=== PATIENT | male | born 1945 | race Caucasian/White ===

== ENCOUNTER 2018-10-30 18:32 | Inpatient (IN) ==
[2018-10-30] MEDS ORDERED: Nitroglycerin Drip Premix 50 MG/250 ML BOTTLE IV.CONT PRN (18:36)
[2018-10-30 18:57] LABS: Baso # (Auto) 0.1 th/mm3 (0.0-0.2); Baso % (Auto) 1.3 % (0.0-2.0); Eos # (Auto) 0.3 th/mm3 (0.0-0.4); Hematocrit 46.2 % (39.0-51.0); Hemoglobin 15.8 gm/dL (13.0-17.0); Lymph # (Auto) 3.7 th/mm3 (1.0-4.8); Lymph % (Auto) 43.9 % (9.0-44.0); Mean Corpuscular HGB Conc 34.2 % (32.0-36.0); Mean Corpuscular Hemoglobin 32.2 pg (27.0-34.0); Mean Corpuscular Volume 94.1 fL (80.0-100.0); Mean Platelet Volume 7.4 fL (7.0-11.0); Mono # (Auto) 0.8 th/mm3 (0.0-0.9); Mono % (Auto) 9.9 % (0.0-8.0); Neut # (Auto) 3.5 th/mm3 (1.8-7.7); Neut % (Auto) 40.9 % (16.0-70.0); Platelet Count 268 th/mm3 (150-450); Red Blood Count 4.91 mil/mm3 (4.50-5.90); Red Cell Distribution Width 13.2 % (11.6-17.2); White Blood Count 8.5 th/mm3 (4.0-11.0)
[2018-10-30] MEDS ORDERED: Morphine Inj 4 MG/ML Vial IV.PUSH ONE (18:59)
--- NOTE | 2018-10-30 19:03 | XR ---
EXAM DATE: 10/30/2018 6:58 PM EST AGE/SEX: 73 years / Male INDICATIONS: Congestion. Respiratory. CLINICAL DATA: This is the patient's initial encounter. Patient reports that signs and symptoms have been present for 1 day and indicates a pain score of Nonresponsive. MEDICAL/SURGICAL HISTORY: Non-responsive. Non-responsive. COMPARISON: No prior exams available for comparison. FINDINGS: A single AP portable erect view of the chest was obtained and demonstrates bilateral alveolar opaciti es greatest in the perihilar regions and lung bases. There is no focal consolidation or visualized ef fusion. The heart size is at the upper limits of normal. Atherosclerotic changes are present in the a angelina. The bony thorax is intact with multiple overlying electrocardiogram leads. CONCLUSION: Bilateral alveolar opacities most characteristic of pulmonary edema. These may be cardiogenic or nonc ardiogenic in origin. Electronically signed by: Stephen Lee MD 10/30/2018 7:01 PM EST
[2018-10-30 19:24] LABS: ABG Base Excess -2.9 mmol/L (-2-2); ABG PCO2 41 mmHg (38-42); ABG PO2 512 mmHg (61-120)
[2018-10-30 19:29] LABS: Albumin 4.1 g/dL (3.4-5.0); Anion Gap 9 meq/L (5-15); Aspartate Aminotransferase 30 U/L (15-37); Blood Urea Nitrogen 14 mg/dL (7-18); Calcium 8.3 mg/dL (8.5-10.1); Carbon Dioxide 23.6 meq/L (21.0-32.0); Chloride 93 meq/L (98-107); Glomerular Filtration Rate 78 mL/min (>89); Glucose,Random 182 mg/dL (74-106); Potassium 4.1 meq/L (3.5-5.1); Sodium 126 meq/L (136-145)
--- NOTE | 2018-10-30 19:32 | ED ---
HPI General Chief Complaint: Shortness of Breath/Dyspnea Stated Complaint: respiratory/evac Time Seen by Provider: 10/30/18 18:58 Source: EMS Mode of arrival: EMS Limitations: physical limitation (Severe shortness of breath) History of Present Illness MD Complaint: Reports shortness of breath Onset (ago): minute(s) Context: Reports other (He was at a [employer] meeting when he suddenly became dyspneic with white, frothy sputum.) Severity: severe Consistency/Duration: constant Relieving factors: other (CPAP) Known history of: Denies COPD, asthma, congestive heart failure and diabetes Associated symptoms: Reports chest pain Treatment prior to arrival: Reports oxygen, NIPPV, nitroglycerin and other (And Solu-Medrol) Related Data Home oxygen amount: none Home Medications Medication Instructions Recorded Confirmed Unable to Obtain Home Meds 10/30/18 10/30/18 Allergies Allergy/AdvReac Type Severity Reaction Status Date / Time No Known Allergies Allergy Verified 10/30/18 18:40 Review of Systems ROS Unobtainable ROS Unobtainable: other (Unable to obtain due to severe shortness of breath) [facility] Medical History Medical History History of epilepsy (Acute) Social History Social History Recent Travel in [facility] within the Last 8 Weeks: No Recent Out of Country Travel within the Last 8 Weeks: No Exam Const General: cooperative, healthy appearing, well developed, well groomed and acute distress Orientation: alert, awake and oriented x3 HENMT Head: normal to inspection, normocephalic and atraumatic Eyes Alignment and Position: alignment normal Conjunctivae: conjunctivae normal Sclera: sclerae normal EOM: EOM intact bilaterally Neck Neck: normal visual inspection and full ROM Chest Chest: normal inspection of the chest Resp Effort & Inspection: other (BiPAP in place. White, frothy sputum.) Auscultation: rales Cardio Rate: tachycardic Rhythm: regular rhythm GI Inspection: normal to inspection Palpation: soft Back/Spine/Pelvis Cervical Spine: cervical ROM normal Thoracic/Lumbar Spine: thoraco-lumbar ROM normal Skin General: no rashes or lesions noted and turgor normal Neuro General: alert, awake, oriented x3, moves all extremities and CN's II-XI intact bilaterally Extrem General: normal to inspection, full ROM and edema (2+) Laterality: bilaterally Psych Appearance: grossly normal Mental Status: mental status grossly normal Speech and Movement: speech and movement normal Mood: congruent mood Affect: normal affect Attitude: cooperative Thought Process: normal Thought Content: normal Judgment: judgment good Course Reevaluation(s) Reevaluation #1: He is maintaining sats of 100% on BiPAP. Heart rate and blood pressure coming down. Time: 19:31 Reevaluation #2: The patient's is now at the bedside. She confirms the history of the acute onset of dyspnea and white frothy sputum just shortly prior to presentation. She further reports that he is regularly followed by Dr. Granado. No cardiac problem has ever been identified. He reportedly had an echo in March which was negative. The patient's states that he looks markedly improved now as compared to at the onset of his acute illness. Time: 19:42 Consultations Consultation #1: Dr. Fitzpatrick, model builder display. Time: 19:31 Initial Documented Vital Signs Pulse Rate 117 H 18 18:35 Respiratory Rate 22 18 18:35 Pulse Oximetry 100 10/30/18 18:35 Last Documented Vital Signs Pulse Rate 104 H 10/30/18 20:04 Respiratory Rate 20 10/30/18 20:04 Blood Pressure 134/75 10/30/18 20:04 Pulse Oximetry 100 10/30/18 20:04 Critical Care Time Critical Care Time: Yes Total Critical Care Time: 45 Attestation: Time to perform other separately billable procedures was not included in the critical care time. My time did not include minutes spent treating any other patients simultaneously or on activities that did not directly contribute to the patient's treatment. The services I provided to this patient were to treat and/or prevent clinically significant deterioration due to respiratory distress, acute pulmonary edema I provided critical care services requiring my management, as noted below: Chart data review, documentation time, medication orders and management, vital sign assessments/reviewing monitor data, ordering and reviewing lab tests, ordering and interpreting/reviewing x-rays and diagnostic studies, care of the patient and discussion of the patient with the admitting physicians Medical Decision Making MDM Narrative Medical decision making narrative: This patient presents to us by EVAC with acute respiratory distress. History is difficult because the patient is on BiPAP and is very short of breath. He does state that he was fine until just prior to presentation when he had the acute onset of his symptoms. The patient was treated by EVAC with 1 spray of glycerin and BiPAP. He was also given Solu-Medrol On arrival here, BiPAP was continued. He was given Lasix 40 mg IV and morphine 4 mg IV. Nitropaste was placed. He still has significant respiratory distress but is markedly improved. D-dimer is elevated so CT for PE has been ordered. Medical Screen Exam Complete: Yes Emergency Medical Condition: Yes Differential Diagnosis Differential Diagnosis: Differential diagnosis of dyspnea includes but is not limited to congestive heart failure, pneumonia, wheezing, pneumothorax, pulmonary embolism Medical Records Medical records reviewed: Yes I reviewed the patient's medical records. His only medical history is a seizure disorder for which he takes Keppra Lab Data Lab results reviewed: Yes I reviewed the patient's lab results. Result diagrams: 10/30/18 18:45 10/30/18 18:45 Lab Results 10/30/18 10/30/18 10/30/18 Range/Units 18:45 18:45 18:45 WBC 8.5 (4.0-11.0) th/mm3 RBC 4.91 (4.50-5.90) mil/mm3 Hgb 15.8 (13.0-17.0) gm/dL Hct 46.2 (39.0-51.0) % MCV 94.1 (80.0-100.0) fL MCH 32.2 (27.0-34.0) pg MCHC 34.2 (32.0-36.0) % RDW 13.2 (11.6-17.2) % Plt Count 268 (150-450) th/mm3 MPV 7.4 (7.0-11.0) fL Neut % (Auto) 40.9 (16.0-70.0) % Lymph % (Auto) 43.9 (9.0-44.0) % Otero % (Auto) 9.9 H (0.0-8.0) % Eos % (Auto) 4.0 (0.0-4.0) % Baso % (Auto) 1.3 (0.0-2.0) % Neut # (Auto) 3.5 (1.8-7.7) th/mm3 Lymph # (Auto) 3.7 (1.0-4.8) th/mm3 Otero # (Auto) 0.8 (0.0-0.9) th/mm3 Eos # (Auto) 0.3 (0.0-0.4) th/mm3 Baso # (Auto) 0.1 (0.0-0.2) th/mm3 WBC Differential . Differential Comment Auto diff final D-Dimer Quant (PE/DVT) 1.78 H (0.00-0.50) mg/L FEU Puncture Site Patient Temperature O2 Saturation (90-100) % ABG pH (7.380-7.420) ABG pCO2 (38-42) mmHg ABG pO2 (61-120) mmHg ABG HCO3 (22-26) mmol/L ABG O2 Content (12.0-20.0) Vol % ABG Base Excess (-2-2) mmol/L ABG Methemoglobin (0-2) % Mervin Test Hemoglobin (12.0-16.0) G/DL Carboxyhemoglobin (0-4) % O2 Delivery Device Vent Setting Inspired O2 % Critical Value Sodium 126 L (136-145) meq/L Potassium 4.1 (3.5-5.1) meq/L Chloride 93 L (98-107) meq/L Carbon Dioxide 23.6 (21.0-32.0) meq/L Anion Gap 9 (5-15) meq/L BUN 14 (7-18) mg/dL Creatinine 0.95 (0.60-1.30) mg/dL Estimated GFR 78 L (>89) mL/min Random Glucose 182 H (74-106) mg/dL Lactic Acid (0.4-2.0) mmol/L Calcium 8.3 L (8.5-10.1) mg/dL Total Bilirubin 0.6 (0.2-1.0) mg/dL AST 30 (15-37) U/L ALT 28 (12-78) U/L Alkaline Phosphatase 96 (45-117) U/L Troponin I Less than 0.02 L (0.02-0.05) ng/mL B-Natriuretic Peptide (0-100) pg/mL Total Protein 7.3 (6.4-8.2) g/dL Albumin 4.1 (3.4-5.0) g/dL 10/30/18 10/30/18 10/30/18 Range/Units 18:45 19:18 19:25 WBC (4.0-11.0) th/mm3 RBC (4.50-5.90) mil/mm3 Hgb (13.0-17.0) gm/dL Hct (39.0-51.0) % MCV (80.0-100.0) fL MCH (27.0-34.0) pg MCHC (32.0-36.0) % RDW (11.6-17.2) % Plt Count (150-450) th/mm3 MPV (7.0-11.0) fL Neut % (Auto) (16.0-70.0) % Lymph % (Auto) (9.0-44.0) % Otero % (Auto) (0.0-8.0) % Eos % (Auto) (0.0-4.0) % Baso % (Auto) (0.0-2.0) % Neut # (Auto) (1.8-7.7) th/mm3 Lymph # (Auto) (1.0-4.8) th/mm3 Otero # (Auto) (0.0-0.9) th/mm3 Eos # (Auto) (0.0-0.4) th/mm3 Baso # (Auto) (0.0-0.2) th/mm3 WBC Differential Differential Comment D-Dimer Quant (PE/DVT) (0.00-0.50) mg/L FEU Puncture Site Right radial Patient Temperature 98.6 O2 Saturation 98 (90-100) % ABG pH 7.35 L (7.380-7.420) ABG pCO2 41 (38-42) mmHg ABG pO2 512 H (61-120) mmHg ABG HCO3 22 (22-26) mmol/L ABG O2 Content 21.9 H (12.0-20.0) Vol % ABG Base Excess -2.9 L (-2-2) mmol/L ABG Methemoglobin 1.2 (0-2) % Mervin Test Present Hemoglobin 15.0 (12.0-16.0) G/DL Carboxyhemoglobin 0.4 (0-4) % O2 Delivery Device Bipap Vent Setting Ipap 15/epap 8 ps7 Inspired O2 100 % Critical Value No Sodium (136-145) meq/L Potassium (3.5-5.1) meq/L Chloride (98-107) meq/L Carbon Dioxide (21.0-32.0) meq/L Anion Gap (5-15) meq/L BUN (7-18) mg/dL Creatinine (0.60-1.30) mg/dL Estimated GFR (>89) mL/min Random Glucose (74-106) mg/dL Lactic Acid 1.4 (0.4-2.0) mmol/L Calcium (8.5-10.1) mg/dL Total Bilirubin (0.2-1.0) mg/dL AST (15-37) U/L ALT (12-78) U/L Alkaline Phosphatase (45-117) U/L Troponin I (0.02-0.05) ng/mL B-Natriuretic Peptide 537 H (0-100) pg/mL Total Protein (6.4-8.2) g/dL Albumin (3.4-5.0) g/dL Imaging Data Attestation: I personally reviewed and interpreted this imaging study as follows : Radiologist's impression: Chest X-Ray 10/30/18 18:37 CONCLUSION: Bilateral alveolar opacities most characteristic of pulmonary edema. These may be cardiogenic or noncardiogenic in origin. ECG Data EKG Prior to Arrival: Yes Attestation: I personally reviewed and interpreted this ECG as follows: Discharge Plan Discharge Disposition Patient Disposition: ED Admit(ED Internal Use Only) Discharge Order Discharge Orders: ED Use Only Admit Order (Routine); Ordered 10/30/18 Ordered By: Stefani Mondragon Discharge Details Diagnosis: Acute respiratory distress, Pulmonary edema, Elevated d-dimer Physicians Team ED Provider: Stefani Mondragon Primary Care Provider: UNKNOWN, Attending Provider: Eldon Fitzpatrick Discharge Interventions Interventions: Vital Signs Last Done: 10/30/18 19:15 Status ED Status: Admitted Patient
[2018-10-30 19:34] LABS: Alanine Aminotransferase 28 U/L (12-78); Alkaline Phosphatase 96 U/L (45-117); Total Protein 7.3 g/dL (6.4-8.2)
[2018-10-30] MEDS ORDERED: Acetaminophen 325 MG Tablet PO PRN (20:16)
[2018-10-30] MEDS ORDERED: Bisacodyl 10 MG Supp RECTAL PRN (20:16)
[2018-10-30] MEDS ORDERED: Morphine Sulfate Inj 2 MG/ML Vial IV.PUSH PRN (20:16)
[2018-10-30] MEDS ORDERED: Potassium Phosphate Inj 30 MMOL in Sodium Chlor 0.9% Inj 250 ML IV.SIG PRN (20:22)
[2018-10-30] MEDS ORDERED: Magnesium Sulfate Inj 4 GM in Sodium Chlor 0.9% Inj 92 ML IV.SIG PRN (20:22)
[2018-10-30] MEDS ORDERED: Potassium Chlor 20 mEq Premix 20 MEQ/100 ML PIGGYBACK IV.SIG PRN (20:22)
[2018-10-30] MEDS ORDERED: Potassium Phosphate 500 MG Soluble Tablet PO PRN ×2 (20:22)
[2018-10-30] MEDS ORDERED: Sodium Phosphate Inj 30 MMOL in Sodium Chlor 0.9% Inj 250 ML IV.SIG PRN (20:22)
[2018-10-30] MEDS ORDERED: Potassium Chlor 40 mEq Premix 40 MEQ/100 ML PIGGYBACK IV.SIG PRN ×2 (20:22)
[2018-10-30] MEDS ORDERED: Magnesium Oxide 400 MG Tablet PO PRN (20:22)
[2018-10-30] MEDS ORDERED: Magnesium Sulfate Inj 2 GM in Sodium Chlor 0.9% Inj 96 ML IV.SIG PRN (20:22)
[2018-10-30] MEDS ORDERED: Potassium Chloride 25 MEQ Effervescent Tablet PO PRN (20:22)
--- NOTE | 2018-10-30 20:22 | P.HPCC ---
History of Present Illness Service: Critical care medicine Primary Care Physician: UNKNOWN Chief Complaint: Shortness of breath History of Present Illness: This is a 73-year-old male. Date of admission 10/30/2008. Past medical includes seizure disorder, elevated BMI and atherosclerotic vascular disease including carotid artery disease. Patient is on carbamazepine 600 mg twice daily at home only. She does follow with Dr. Granado for cardiology. This evening, patient was at a [facility] meeting when he suddenly became dyspneic with white, frothy sputum. He was transferred to [facility] for further evaluation. Chest x-ray revealed bilateral pulmonary cyst likely underlying pulmonary edema. Patient received 40 mg IV furosemide was started on BiPAP 15/8 40%. Patient also received 2 mg of morphine sulfate and Nitropaste. ABG was adequate. Patient is currently able to use speak complete sentences on BiPAP and is feeling less congested. Patient is clearing of some chest discomfort worse with deep inspiration. Initial troponin was 0.02. EKG revealed nonspecific ST-T changes throughout with sinus tachycardia. BNP is elevated at 572. - Diagnosis (1) BMI 38.0-38.9,adult (2) Acute hyponatremia (3) Acute hyperglycemia (4) Seizure disorder (5) Acute respiratory failure with hypoxia and hypercapnia (6) Pulmonary edema (7) Elevated d-dimer Inpatient Certification: I certify that the inpatient services were ordered in accordance with Medicare regulations governing the order. This includes certification that hospital inpatient services are reasonable and necessary and in the case of services not specified as inpatient-only under 42 CFR 419.22(n), that they are appropriately provided as inpatient services in accordance to with the 2-midnight benchmark under 43 CFR 412.3(e) Estimated Total Length of Stay (Days): 3 Plans for Post Hospital Care: Home Review of Systems Constitutional: Denies anorexia, Denies body ache(s), Denies chills, Denies daytime sleepiness, Denies excessive sweating Eyes: Denies blind spots, Denies blurry vision Ears, Nose, Mouth, and Throat: Denies abnormal hearing Cardiovascular: Reports chest pain, Reports shortness of breath, Reports shortness of breath with activity, Reports shortness of breath when lying down, Denies chest pain at rest, Denies chest pain with activity, Denies shortness of breath causing sudden awakening Respiratory: Reports pain on inspiration, Reports shortness of breath, Denies change in phlegm color, Denies chest congestion, Denies cough, Denies shortness of breath with activity Gastrointestinal: Denies abdominal pain, Denies bloating Genitourinary: Denies difficulty urinating Musculoskeletal: Denies abnormal walking, Denies back pain Skin/Breast: Denies acne, Denies bleeding lesions Neurologic: Denies abnormal hearing, Denies abnormal movements, Denies abnormal walking Psychiatric: Denies abnormal sleep pattern, Denies anxiety, Denies confusion, Denies depression Endocrine: Denies cold intolerance, Denies excessive sweating Hematologic/Lymphatic: Denies easy bleeding, Denies easy bruising Allergic/Immunologic: Denies GI upset with certain foods PMFSH - History History Provided By: Director Of Public Health / EMT - Medical History Medical History: Medical History (Last Updated 10/30/18 @ 21:02 by Eldon Fitzpatrick MD) Atherosclerotic vascular disease History of epilepsy - Surgical History Surgical History: Surgical History (Last Updated 10/30/18 @ 21:03 by Eldon Fitzpatrick MD) No pertinent past surgical history - Family History Family History: Family History (Last Updated 10/30/18 @ 21:03 by Eldon Fitzpatrick MD) Other Family history non-contributory - Social History I have reviewed the patient's Social History: Yes - Tobacco History Second Hand Smoke Exposure: No Tobacco Use In Past 30 Days: No Smoking Status: Never smoker - Alcohol History How Often Do You Have a Drink Containing Alcohol: Never - Substance Use History Substance History: No History of Abuse - Travel History Recent Travel in the [place] Within the Last 8 Weeks: No Recent Travel Out of the Country Within the Last 8 Weeks: No Medications and Allergies Active Medications: Active Medications Acetaminophen (Tylenol) 650 mg PO Q6H PRN PRN Reason: PAIN 1-10 AND/OR FEVER >101F Hydrocodone Bitart/Acetaminophen ([place] 5/325) 1 tab PO Q4H PRN PRN Reason: PAIN SCALE 1 TO 5 Al Hydroxide/Mg Hydroxide (Milk Of Magnesia Liq) 30 ml PO Q12H PRN PRN Reason: Mild Constipation Albuterol (Albuterol Neb (Lakshmi)) 2.5 mg NEB Q2HR NEB PRN PRN Reason: SHORTNESS OF BREATH/WHEEZING Albuterol (Duoneb Neb (Prn)) 1 ampul NEB Q4HR NEB LAKSHMI Bisacodyl (Dulcolax Supp) 10 mg RECTAL DAILY PRN PRN Reason: SEVERE CONSITIPATION Chlorhexidine Gluconate (Chlorhexidine 2% Cloth) 3 pack TOPICAL DAILY@0400 PRN PRN Reason: Extra cloth needed Stop: 11/05/18 03:59 Chlorhexidine Gluconate (Chlorhexidine 2% Cloth) 3 pack TOPICAL DAILY@0400 LAKSHMI Stop: 11/05/18 03:59 Sodium Chloride (Ns Inj) 1,000 mls @ 84 mls/hr IV.CONT .[id number] [facility] Lactulose (Lactulose Liq) 30 ml PO DAILY PRN PRN Reason: SEVERE CONSITIPATION Morphine Sulfate (Morphine Inj) 2 mg IV.PUSH Q2H PRN PRN Reason: PAIN SCALE 6 TO 10 Ondansetron HCl (Zofran Inj) 4 mg IV.PUSH Q6H PRN PRN Reason: NAUSEA OR VOMITING Pantoprazole Sodium (Protonix Inj) 40 mg IV.PUSH DAILY [facility] Senna/Docusate Sodium (Sinai-Colace) 1 tab PO BID [facility] Sennosides (Senokot) 17.2 mg PO Q12H PRN PRN Reason: Moderate Constipation Allergies Allergy/AdvReac Type Severity Reaction Status Date / Time No Known Allergies Allergy Verified 10/30/18 18:40 Home Medications Medication Instructions Recorded Confirmed Type Unable to Obtain Home Meds 10/30/18 10/30/18 History Results - Labs CBC & Chem 7: 10/30/18 18:45 10/30/18 18:45 Labs: Short CBC 10/30/18 Range/Units 18:45 WBC 8.5 (4.0-11.0) th/mm3 Hgb 15.8 (13.0-17.0) gm/dL Hct 46.2 (39.0-51.0) % Plt Count 268 (150-450) th/mm3 BMP 10/30/18 18:45 Sodium 126 L Potassium 4.1 Chloride 93 L Carbon Dioxide 23.6 BUN 14 Creatinine 0.95 Calcium 8.3 L Cardiac Enzymes 10/30/18 Range/Units 18:45 Troponin I Less than 0.02 L (0.02-0.05) ng/mL Liver Function 10/30/18 Range/Units 18:45 Total Bilirubin 0.6 (0.2-1.0) mg/dL AST 30 (15-37) U/L ALT 28 (12-78) U/L Alkaline Phosphatase 96 (45-117) U/L Albumin 4.1 (3.4-5.0) g/dL - Imaging Impressions Chest X-Ray 10/30/18 18:37 CONCLUSION: Bilateral alveolar opacities most characteristic of pulmonary edema. These may be cardiogenic or noncardiogenic in origin. Exam Vital signs: Vital Signs 10/30/18 18:35 10/30/18 18:40 10/30/18 19:15 Pulse Rate 117 H 114 H Respiratory Rate 22 Blood Pressure 157/97 H 158/97 H Pulse Oximetry 100 100 100 10/30/18 20:04 Pulse Rate 104 H Respiratory Rate 20 Blood Pressure 134/75 Pulse Oximetry 100 Intake & Output 10/30/18 10/30/18 10/31/18 06:59 18:59 06:59 Weight 140.614 kg - Constitutional no acute distress - Routine HEENT Exam Head: Present: normocephalic, atraumatic Eye: Present: EOMI, PERRL, normal accommodation ENT: Present: mucous membranes moist - Routine Neck Exam Present: full ROM, carotid bruit (1 out of 4 bilateral). Absent: supple, JVD - Routine Chest/Breast/Axilla Exam Chest wall: Present: tenderness. Absent: mass Breast: Absent: tenderness Axillae: Absent: lymphadenopathy - Routine Respiratory Exam Present: rhonchi, distant breath sounds. Absent: accessory muscle use, diminished air movement - Routine Cardiovascular Exam Present: S1, S2, tachycardia. Absent: murmur - Routine Abdominal Exam Present: soft, normoactive bowel sounds - Routine Extremities Exam Present: edema (1+ bilateral lower extremity edema). Absent: cyanosis, clubbing - Routine Skin Exam Present: intact. Absent: cyanosis - Routine Neurological Exam Present: alert, oriented X3, CN II-XII intact. Absent: sensory deficit, motor deficit Septic Shock Reassessment Septic shock perfusion: reassessment completed Caprini VTE Risk Assessment Caprini VTE Risk Assessment: Moderate/High Risk (score >= 2) Caprini Risk Assessment Model: Point Value = 1 Point Value = 2 Point Value = 3 Point Value = 5 Age 41-60 Minor surgery BMI > 25 kg/m2 Swollen legs Varicose veins or History of unexplained or recurrent spontaneous Oral contraceptives or hormone replacement Sepsis (< 1 month) Serious lung disease, including pneumonia (< 1 month) Abnormal pulmonary function Acute myocardial infarction Congestive heart failure (< 1 month) History of inflammatory bowel disease Medical patient at bed rest Age 61-74 Arthroscopic surgery Major open surgery (> 45 min) Laparoscopic surgery (> 45 min) Malignancy Confined to bed (> 72 hours) Immobilizing plaster cast Central venous access Age >= 75 History of VTE Family history of VTE Factor V Leiden Prothrombin [id number] Lupus anticoagulant Anticardiolipin antibodies Elevated serum homocysteine Heparin-induced thrombocytopenia Other congenital or acquired thrombophilia Stroke (< 1 month) Elective arthroplasty Hip, pelvis, or leg fracture Acute spinal cord injury (< 1 month) Prophylaxis Regimen: Total Risk Factor Score Risk Level Prophylaxis Regimen 0-1 Low Early ambulation 2 Moderate Order ONE of the following: *Sequential Compression Device (SCD) *Heparin 5000 units SQ BID 3-4 Higher Order ONE of the following medications: *Heparin 5000 units SQ TID *Enoxaparin/Lovenox 40 mg SQ daily (WT < 150 kg, CrCl > 30 mL/min) *Enoxaparin/Lovenox 30 mg SQ daily (WT < 150 kg, CrCl > 10-29 mL/min) *Enoxaparin/Lovenox 30 mg SQ BID (WT < 150 kg, CrCl > 30 mL/min) AND/OR *Sequential Compression Device (SCD) 5 or more Highest Order ONE of the following medications: *Heparin 5000 units SQ TID (Preferred with Epidurals) *Enoxaparin/Lovenox 40 mg SQ daily (WT < 150 kg, CrCl > 30 mL/min) *Enoxaparin/Lovenox 30 mg SQ daily (WT < 150 kg, CrCl > 10-29 mL/min) *Enoxaparin/Lovenox 30 mg SQ BID (WT < 150 kg, CrCl > 30 mL/min) AND *Sequential Compression Device (SCD) Assessment and Plan - Problem List (1) BMI 38.0-38.9,adult Code(s): Z68.38 - Body mass index (BMI) 38.0-38.9, adult Status: Chronic (2) Acute hyponatremia Code(s): E87.1 - Hypo-osmolality and hyponatremia Status: Acute (3) Acute hyperglycemia Code(s): R73.9 - Hyperglycemia, unspecified Status: Acute (4) Seizure disorder Code(s): G40.909 - Epilepsy, unspecified, not intractable, without status epilepticus Status: Acute (5) Acute respiratory failure with hypoxia and hypercapnia Code(s): J96.01 - Acute respiratory failure with hypoxia; J96.02 - Acute respiratory failure with hypercapnia Status: Acute (6) Pulmonary edema Code(s): J81.1 - Chronic pulmonary edema Status: Acute (7) Elevated d-dimer Code(s): R79.89 - Other specified abnormal findings of blood chemistry Status : Acute - Assessment and Plan Plan: Neuro/Psych: Seizure disorder NOS Currently on carbamazepine 600 mg twice daily. Continue. Seizure precaution Acetaminophen 650 p.o. every 6 hours as needed fever Hydrocodone/acetaminophen 5/325 1 tablet every 4 hours as needed pain 1 through 5 Morphine sulfate 2 mg IV every 2 hours as needed pain 6 through 10 CV: Atherosclerotic vascular disease History of carotid artery disease Elevated BNP Initial troponin revealed ST-T nonspecific changes with sinus tachycardia. Initial troponin less than 0.02. Recheck in cycle x2 2D echocardiogram ordered. Patient follows with Dr. Granado/cardiology Resp: Acute respiratory failure Pulmonary edema Currently on BiPAP 15/8 at 40% Albuterol/ipratropium aerosols every 4 hours with albuterol aerosols every 2 hours as needed dyspnea Wean FiO2 as tolerated. CT pulmonary angiogram pending Head of bed at 30 degrees GI: N.p.o. status except for medications Pantoprazole for GI prophylaxis Docusate sodium/senna 1 tablet twice daily for bowel regimen : Straight catheterization as needed Endo: Acute hyperglycemia Sliding scale insulin with Accu-Cheks to maintain euglycemia/every 6 hours aspart insulin low regimen Check TSH Renal: Creatinine currently within normal limit Monitor urine output Accurate I's and O's Heme: Elevated d-dimer CBC within normal limits Check coags No indication for transfusion of blood products at this time ID: Blood cultures x2 done 10/30. Monitor for signs of hematology infection FEN: Acute hyponatremia Check urine/serum Osm, urine sodium, uric acid, TSH and cortisol level Replace electrolytes as clinically indicated per ICU likely protocol Hold IV fluids MSK: Elevated BMI Weight loss encouraged PT evaluate and treat Access -Peripheral IV. Central line if indicated Prophylaxis -GI -pantoprazole - -DVT SCD/heparin subcu Level 3 H&P (6) Pulmonary edema Qualifiers: Chronicity: acute Qualified Code(s): J81.0 - Acute pulmonary edema
[2018-10-30] MEDS ORDERED: Dextrose 50% in Water 50 ML Vial IV.PUSH PRN (20:23)
[2018-10-30] MEDS ORDERED: Sod Chloride 0.9% Inj 1,000 ML IV.CONT SCH (20:30)
--- NOTE | 2018-10-30 21:15 | CT ---
EXAM DATE: 10/30/2018 9:09 PM EST AGE/SEX: 73 years / Male INDICATIONS: Short of breath. Elevated d-dimer. Abnormal chest x-ray examination demonstrating alveo lar opacities. CLINICAL DATA: This is the patient's initial encounter. Patient reports that signs and symptoms have been present for 1 day and indicates a pain score of 0/10. MEDICAL/SURGICAL HISTORY: None. None. RADIATION DOSE: 23.29 CTDI (mGy) COMPARISON: No prior exams available for comparison. TECHNIQUE: Volumetric scanning was performed using a multi-row detector CT scanner during bolus infu prisca of 73 ml Omnipaque 350 (iohexol) nonionic water-soluble contrast as a single exam dose. The clement a was post processed with a variety of visualization algorithms including full volume maximum intensi ty projection and sliding thin slab reformation. Using automated exposure control and adjustment of t he mA and/or kV according to patient size, radiation dose was kept as low as reasonably achievable to obtain optimal diagnostic quality images. DICOM format image data is available electronically for r eview and comparison. FINDINGS: Pulmonary Arteries: No filling defects are seen in the pulmonary arteries out to the subsegmental ve ssels. The left and right pulmonary arteries are normal in diameter. Lung: Alveolar opacities are present in both lungs greatest in the perihilar regions and lung bases. Effusion: There are small to moderate bilateral effusions. Mediastinum: No evidence of mediastinal or hilar adenopathy. Coronary artery calcifications are pres ent. Other: The axilla is unremarkable. CONCLUSION: 1. Bilateral alveolar opacities again noted most characteristic of pulmonary edema. 2. Small to moderate bilateral pleural effusions. 3. No evidence of pulmonary emboli. 4. Coronary artery calcifications. Electronically signed by: Stephen Lee MD 10/30/2018 9:14 PM EST
[2018-10-30 21:25] LABS: Troponin I 0.21 ng/mL (0.02-0.05)
[2018-10-30] MEDS: Senna/Docusate Sodium 8.6/50 MG Tablet PO SCH (21:57)
[2018-10-30] MEDS ORDERED: Labetalol HCl Inj 100 MG/20 ML Vial IV.PUSH PRN (22:23)
[2018-10-30] MEDS ORDERED: hydrALAZINE HCl Inj 20 MG/ML Vial IV.PUSH PRN (22:24)
[2018-10-30] MEDS: carBAMazepine 200 MG Tablet PO SCH (22:28)
[2018-10-30 23:08] LABS: Uric Acid 2.9 mg/dl (2.6-7.2)
[2018-10-31] MEDS: Insulin NovoLOG Aspart Correctional Sugar Inj SQ SCH ×5 (00:40→17:54)
[2018-10-31 03:12] LABS: Baso % (Auto) 0.4 % (0.0-2.0); Eos % (Auto) 0.1 % (0.0-4.0); Hematocrit 39.3 % (39.0-51.0); Hemoglobin 13.5 gm/dL (13.0-17.0); Lymph # (Auto) 0.4 th/mm3 (1.0-4.8); Lymph % (Auto) 4.6 % (9.0-44.0); Mean Corpuscular HGB Conc 34.3 % (32.0-36.0); Mean Corpuscular Hemoglobin 31.9 pg (27.0-34.0); Mean Corpuscular Volume 92.8 fL (80.0-100.0); Mean Platelet Volume 7.1 fL (7.0-11.0); Mono # (Auto) 0.9 th/mm3 (0.0-0.9); Mono % (Auto) 8.9 % (0.0-8.0); Neut # (Auto) 8.4 th/mm3 (1.8-7.7); Platelet Count 179 th/mm3 (150-450); Red Blood Count 4.23 mil/mm3 (4.50-5.90); Red Cell Distribution Width 12.9 % (11.6-17.2); White Blood Count 9.8 th/mm3 (4.0-11.0)
[2018-10-31 03:22] LABS: Activated Partial Thrombo Time 27.5 sec (23.4-31.7); INR 1.1 Ratio; Prothrombin Time 10.8 sec (9.8-11.6)
[2018-10-31 03:37] LABS: Alanine Aminotransferase 22 U/L (12-78); Albumin 3.2 g/dL (3.4-5.0); Alkaline Phosphatase 78 U/L (45-117); Anion Gap 7 meq/L (5-15); Aspartate Aminotransferase 24 U/L (15-37); Blood Urea Nitrogen 15 mg/dL (7-18); Calcium 7.5 mg/dL (8.5-10.1); Carbon Dioxide 31.1 meq/L (21.0-32.0); Chloride 91 meq/L (98-107); Chol/HDL Ratio 2.63 Ratio; Cholesterol 231 mg/dL (120-200); Glomerular Filtration Rate 83 mL/min (>89); Glucose,Random 161 mg/dL (74-106); HDL Cholesterol 87.7 mg/dL (40.0-60.0); LDL Cholesterol,Calculated 135 mg/dL (0-99); Phosphorus 3.4 mg/dL (2.5-4.9); Potassium 4.1 meq/L (3.5-5.1); Sodium 129 meq/L (136-145); Total Protein 5.8 g/dL (6.4-8.2); Triglycerides 41 mg/dL (42-150)
[2018-10-31 03:45] LABS: Troponin I 0.65 ng/mL (0.02-0.05)
[2018-10-31] MEDS ORDERED: Chlorhexidine Gluconate 2% 1 Pack (2 Cloths) TOPICAL PRN (04:00)
[2018-10-31] MEDS: Chlorhexidine Gluconate 2% 1 Pack (2 Cloths) TOPICAL SCH (05:39)
[2018-10-31] MEDS: Pantoprazole Inj 40 MG Vial IV.PUSH SCH (08:20)
[2018-10-31] MEDS: carBAMazepine 200 MG Tablet PO SCH ×2 (08:20→20:17)
[2018-10-31] MEDS: Influenza (Quadrivalent) Vaccine 0.5 ML Syringe IM ONE ×2 (08:20→09:49)
[2018-10-31] MEDS: Senna/Docusate Sodium 8.6/50 MG Tablet PO SCH ×2 (08:22→20:17)
--- NOTE | 2018-10-31 09:42 | P.PNCC ---
Subjective Subjective Remarks/Hospital Course: 10/31: Patient was taken off BiPAP early this a.m. Patient remains on 3 L nasal cannula O2 saturation 97% diuretics were given last evening the patient diuresed 2700 cc. Echo pending this a.m. patient provided a clear liquid diet. Patient denies dyspnea or chest pain .cardiology has been consulted awaiting recommendations. Continued monitoring of troponin level. Objective Vital Signs / I&O: Vital Signs 10/30/18 18:35 10/30/18 18:40 10/30/18 19:15 Temperature Pulse Rate 117 H 114 H Respiratory Rate 22 Blood Pressure 157/97 H 158/97 H Pulse Oximetry 100 100 100 10/30/18 20:04 10/30/18 22:00 10/31/18 00:00 Temperature 97.8 F 97.1 F L Pulse Rate 104 H 88 79 Respiratory Rate 20 15 11 L Blood Pressure 134/75 125/70 109/58 L Pulse Oximetry 100 100 97 10/31/18 02:00 10/31/18 04:00 10/31/18 04:14 Temperature 98.2 F Pulse Rate 75 76 64 Respiratory Rate 12 18 Blood Pressure 99/58 L Pulse Oximetry 98 10/31/18 04:15 10/31/18 06:00 10/31/18 08:00 Temperature Pulse Rate 72 76 Respiratory Rate Blood Pressure Pulse Oximetry 97 97 10/31/18 08:04 Temperature Pulse Rate 69 Respiratory Rate 14 Blood Pressure Pulse Oximetry Intake & Output 10/30/18 10/31/18 10/31/18 18:59 06:59 18:59 Intake Total 240 / 240 Output Total 2710 / 2710 Balance -2470 / -2470 Weight 140.614 kg 111.3 kg Intake: Oral 240 / 240 Output: Urine 2710 / 2710 Other: Date of Last Bowel Movement 10/29/18 10/29/18 Weight On Admission 140 kg Result Diagrams: 10/31/18 02:54 10/31/18 02:54 Other Results: Laboratory Results WBC 9.8 th/mm3 (4.0-11.0) 10/31/18 02:54 RBC 4.23 mil/mm3 (4.50-5.90) L 10/31/18 02:54 Hgb 13.5 gm/dL (13.0-17.0) D 10/31/18 02:54 Hct 39.3 % (39.0-51.0) 10/31/18 02:54 MCV 92.8 fL (80.0-100.0) 10/31/18 02:54 MCH 31.9 pg (27.0-34.0) 10/31/18 02:54 MCHC 34.3 % (32.0-36.0) 10/31/18 02:54 RDW 12.9 % (11.6-17.2) 10/31/18 02:54 Plt Count 179 th/mm3 (150-450) D 10/31/18 02:54 MPV 7.1 fL (7.0-11.0) 10/31/18 02:54 Neut % (Auto) 86.0 % (16.0-70.0) H 10/31/18 02:54 Lymph % (Auto) 4.6 % (9.0-44.0) L 10/31/18 02:54 [place] % (Auto) 8.9 % (0.0-8.0) H 10/31/18 02:54 Eos % (Auto) 0.1 % (0.0-4.0) 10/31/18 02:54 Baso % (Auto) 0.4 % (0.0-2.0) 10/31/18 02:54 Neut # (Auto) 8.4 th/mm3 (1.8-7.7) H 10/31/18 02:54 Lymph # (Auto) 0.4 th/mm3 (1.0-4.8) L 10/31/18 02:54 [place] # (Auto) 0.9 th/mm3 (0.0-0.9) 10/31/18 02:54 Eos # (Auto) 0.0 th/mm3 (0.0-0.4) 10/31/18 02:54 Baso # (Auto) 0.0 th/mm3 (0.0-0.2) 10/31/18 02:54 WBC Differential . 10/31/18 02:54 Differential Comment Auto diff final 10/31/18 02:54 PT 10.8 sec (9.8-11.6) 10/31/18 02:54 INR 1.1 Ratio 10/31/18 02:54 APTT 27.5 sec (23.4-31.7) 10/31/18 02:54 D-Dimer Quant (PE/DVT) 1.78 mg/L FEU (0.00-0.50) H 10/30/18 18:45 Puncture Site Right radial 10/30/18 19:18 Patient Temperature 98.6 10/30/18 19:18 O2 Saturation 98 % (90-100) 10/30/18 19:18 ABG pH 7.35 (7.380-7.420) L 10/30/18 19:18 ABG pCO2 41 mmHg (38-42) 10/30/18 19:18 ABG pO2 512 mmHg (61-120) H 10/30/18 19:18 ABG HCO3 22 mmol/L (22-26) 10/30/18 19:18 ABG O2 Content 21.9 Vol % (12.0-20.0) H 10/30/18 19:18 ABG Base Excess -2.9 mmol/L (-2-2) L 10/30/18 19:18 ABG Methemoglobin 1.2 % (0-2) 10/30/18 19:18 Mervin Test Present 10/30/18 19:18 Hemoglobin 15.0 G/DL (12.0-16.0) 10/30/18 19:18 Carboxyhemoglobin 0.4 % (0-4) 10/30/18 19:18 O2 Delivery Device Bipap 10/30/18 19:18 Vent Setting Ipap 15/epap 8 ps7 10/30/18 19:18 Inspired O2 100 % 10/30/18 19:18 Critical Value No 10/30/18 19:18 Sodium 129 meq/L (136-145) L 10/31/18 02:54 Potassium 4.1 meq/L (3.5-5.1) 10/31/18 02:54 Chloride 91 meq/L (98-107) L 10/31/18 02:54 Carbon Dioxide 31.1 meq/L (21.0-32.0) 10/31/18 02:54 Anion Gap 7 meq/L (5-15) 10/31/18 02:54 BUN 15 mg/dL (7-18) 10/31/18 02:54 Creatinine 0.90 mg/dL (0.60-1.30) 10/31/18 02:54 Estimated GFR 83 mL/min (>89) L 10/31/18 02:54 POC Glucose 135 mg/dl (68-110) H 10/31/18 05:41 Random Glucose 161 mg/dL (74-106) H 10/31/18 02:54 Osmolality 277 mosm/kg (275-295) 10/30/18 20:30 Lactic Acid 1.2 mmol/L (0.4-2.0) 10/31/18 02:54 Uric Acid 2.9 mg/dl (2.6-7.2) 10/30/18 20:30 Calcium 7.5 mg/dL (8.5-10.1) L D 10/31/18 02:54 Phosphorus 3.4 mg/dL (2.5-4.9) 10/31/18 02:54 Magnesium 2.0 mg/dL (1.5-2.5) 10/31/18 02:54 Total Bilirubin 0.6 mg/dL (0.2-1.0) 10/31/18 02:54 AST 24 U/L (15-37) 10/31/18 02:54 ALT 22 U/L (12-78) 10/31/18 02:54 Alkaline Phosphatase 78 U/L (45-117) 10/31/18 02:54 Total Creatine Kinase 112 U/L (39-308) 10/30/18 20:30 Troponin I 0.65 ng/mL (0.02-0.05) H* 10/31/18 02:54 B-Natriuretic Peptide 537 pg/mL (0-100) H 10/30/18 18:45 Total Protein 5.8 g/dL (6.4-8.2) L D 10/31/18 02:54 Albumin 3.2 g/dL (3.4-5.0) L D 10/31/18 02:54 Triglycerides 41 mg/dL (42-150) L 10/31/18 02:54 Cholesterol 231 mg/dL (120-200) H 10/31/18 02:54 LDL Cholesterol, Calc 135 mg/dL (0-99) H 10/31/18 02:54 HDL Cholesterol 87.7 mg/dL (40.0-60.0) H 10/31/18 02:54 Cholesterol/HDL Ratio 2.63 Ratio 10/31/18 02:54 Cortisol 27.0 mcg/dL 10/31/18 02:54 Urine Osmolality 322 mosm/kg (300-1300) 10/30/18 21:05 Ur Random Sodium 93 meq/L 10/30/18 21:05 Nasal Screen MRSA (PCR) Not detected (Negative) 10/30/18 22:00 Impressions Chest X-Ray 10/30/18 18:37 CONCLUSION: Bilateral alveolar opacities most characteristic of pulmonary edema. These may be cardiogenic or noncardiogenic in origin. Chest CTA 10/30/18 19:34 CONCLUSION: 1. Bilateral alveolar opacities again noted most characteristic of pulmonary edema. 2. Small to moderate bilateral pleural effusions. 3. No evidence of pulmonary emboli. 4. Coronary artery calcifications. Objective Remarks: GENERAL: This is a well-developed well-nourished male lying in bed in no acute distress SKIN: Warm and dry. HEAD: Atraumatic. Normocephalic. EYES: Pupils equal and round. No scleral icterus. No injection or drainage. ENT: No nasal bleeding or discharge. Mucous membranes pink and moist. NECK: Trachea midline. No JVD. CARDIOVASCULAR: Normal rate, regular rhythm. RESPIRATORY: No accessory muscle use. Clear to auscultation. Breath sounds equal bilaterally. GASTROINTESTINAL: Abdomen soft, non-tender, nondistended. No guarding. Normoactive bowel sounds MUSCULOSKELETAL: Extremities without clubbing, cyanosis, or edema. No obvious deformities. NEUROLOGICAL: GCS 15 .awake and alert. RASS 0. No gross focal/sensory deficits. Follows commands in all 4 extremities. Assessment and Plan - Problem List (1) BMI 38.0-38.9,adult Code(s): Z68.38 - Body mass index (BMI) 38.0-38.9, adult Status: Chronic (2) Acute hyponatremia Code(s): E87.1 - Hypo-osmolality and hyponatremia Status: Acute (3) Acute hyperglycemia Code(s): R73.9 - Hyperglycemia, unspecified Status: Acute (4) Seizure disorder Code(s): G40.909 - Epilepsy, unspecified, not intractable, without status epilepticus Status: Acute (5) Acute respiratory failure with hypoxia and hypercapnia Code(s): J96.01 - Acute respiratory failure with hypoxia; J96.02 - Acute respiratory failure with hypercapnia Status: Acute (6) Pulmonary edema Code(s): J81.1 - Chronic pulmonary edema Status: Acute (7) Elevated d-dimer Code(s): R79.89 - Other specified abnormal findings of blood chemistry Status : Acute - Assessment and Plan Plan: Neuro/Psych: Seizure disorder NOS Currently on carbamazepine 600 mg twice daily. Seizure precautions Acetaminophen 650 p.o. every 6 hours as needed fever Hydrocodone/acetaminophen 5/325 1 tablet every 4 hours as needed pain 1 through 5 Morphine sulfate 2 mg IV every 2 hours as needed pain 6 through 10 CV: Atherosclerotic vascular disease History of carotid artery disease Elevated BNP Initial troponin revealed ST-T nonspecific changes with sinus tachycardia. Initial troponin less than 0.02. ->0.65 F/U 2D echocardiogram Patient follows with Dr. Granado/cardiology- F/U recommendations Resp: Acute respiratory failure Pulmonary edema BiPAP 15/8 at 40%-transition to nasal cannula 3 L continue to wean to maintain O2 sat greater than 92 per Albuterol/ipratropium aerosols every 4 hours with albuterol aerosols every 2 hours as needed dyspnea Wean FiO2 as tolerated. 10/30 CT pulmonary angiogram-negative for pulmonary embolus Head of bed at 30 degrees GI: Begin clear liquid diet Pantoprazole for GI prophylaxis Docusate sodium/senna 1 tablet twice daily for bowel regimen : Straight catheterization as needed Diuresed 2700 cc overnight Endo: Acute hyperglycemia Sliding scale insulin with Accu-Cheks to maintain euglycemia/every 6 hours aspart insulin low regimen Check TSH F/U Hgb A1C Renal: Creatinine currently within normal limit Monitor urine output Accurate I's and O's Heme: Elevated d-dimer CBC within normal limits Check coags No indication for transfusion of blood products at this time ID: 10/30 Blood cultures x2 -NGTD Monitor for signs of hematology infection FEN: Acute hyponatremia Check urine/serum Osm, urine sodium, uric acid, TSH and cortisol level Replace electrolytes as clinically indicated per ICU likely protocol Hold IV fluids MSK: Elevated BMI Weight loss encouraged PT evaluate and treat Access -Peripheral IV. Central line if indicated Prophylaxis -GI -pantoprazole - -DVT SCD/heparin subcu Level 3 followup (6) Pulmonary edema Qualifiers: Chronicity: acute Qualified Code(s): J81.0 - Acute pulmonary edema
--- NOTE | 2018-10-31 09:45 | US ---
EXAM DATE: 10/31/2018 9:40 AM EST AGE/SEX: 73 years / Male INDICATIONS: Bilateral leg swelling. CLINICAL DATA: This is the patient's initial encounter. Patient reports that signs and symptoms have been present for 1 day and indicates a pain score of 0/10. MEDICAL/SURGICAL HISTORY: . Acute respiratory failure. Pulmonary edema. Elevated d-dimer. Epile psy. Atherosclerotic vascular disease. None. COMPARISON: No prior exams available for comparison. TECHNIQUE: Venous ultrasound of both lower extremities was performed from the inguinal ligament to t he proximal calf. Real-time, color Doppler and spectral tracing, compression and augmentation techni ques were used. FINDINGS: Right Leg: Normal compression of the deep venous system from the inguinal region to the proximal jelani f. No echogenic clot is seen. Normal response of the venous system to augmentation and respiration. Left Leg: Normal compression of the deep venous system from the inguinal region to the proximal calf . No echogenic clot is seen. Normal response of the venous system to augmentation and respiration. Other: None. CONCLUSION: No venous thrombosis is identified within either lower extremity. Electronically signed by: Colin Solomon MD 10/31/2018 9:44 AM EST
[2018-10-31 13:46] LABS: Hemoglobin A1c 4.7 % (4.3-6.0)
--- NOTE | 2018-10-31 15:35 | ECHRPT ---
Indication: HEART FAILURE CONCLUSIONS Normal left ventricular size. Wall thickness is normal. The left ventricular systolic function is moderately reduced with an estimated ejection fraction in the range of 40-45%. Mild mitral valve regurgitation. Calcification of both mitral valve leaflets. Mild to moderate aortic valve regurgitation. Moderate aortic valve stenosis. mean gradient = 33 mm hg The estimated pulmonary arterial pressure is 18mmHg. The inferior vena cava is dilated. A left sided pleural effusion is present. BP: / HR: Rhythm: Sinus, PVCs MEASUREMENTS (Male / Female) Normal Values Technical Quality:Fair 2D ECHO LV Diastolic Diameter PLAX 5.7 cm 4.2 - 5.9 / 3.9 - 5.3 cm LV Systolic Diameter PLAX 4.5 cm IVS Diastolic Thickness 0.9 cm 0.6 - 1.0 / 0.6 - 0.9 cm LVPW Diastolic Thickness 1.0 cm 0.6 - 1.0 / 0.6 - 0.9 cm LV Relative Wall Thickness 0.3 RV Internal Dim ED PLAX 2.9 cm LVOT Diameter 2.0 cm Aortic Root Diameter 3.2 cm LA Systolic Diameter LX 3.8 cm 3.0 - 4.0 / 2.7 - 3.8 cm LV Ejection Fraction MOD 4C 45.2 % LV Ejection Fraction 4C AL 45.8 % DOPPLER AV Peak Velocity 355.8 cm/s AV Peak Gradient 50.6 mmHg AV Mean Gradient 33.3 mmHg AV Velocity Time Integral 85.8 cm AI Peak Velocity 318.0 cm/s AI Peak Gradient 40.4 mmHg AI Pressure Half Time 439.0 ms LVOT Peak Velocity 104.3 cm/s LVOT Peak Gradient 4.4 mmHg LVOT Velocity Time Integral 23.6 cm AV Area Cont Eq vti 0.9 cm AV Area Cont Eq pk 0.9 cm MV Peak Velocity 127.0 cm/s MV Peak Gradient 6.5 mmHg MV Mean Velocity 85.7 cm/s MV Mean Gradient 3.0 mmHg Mitral E Point Velocity 115.0 cm/s Mitral A Point Velocity 128.0 cm/s Mitral E to A Ratio 0.9 LV E' Lateral Velocity 6.4 cm/s Mitral E to LV E' Lateral Ratio 17.9 LV E' Septal Velocity 4.3 cm/s Mitral E to LV E' Septal Ratio 26.8 TR Peak Velocity 88.2 cm/s TR Peak Gradient 3.1 mmHg Right Atrial Pressure 15.0 mmHg Pulmonary Artery Systolic Pressu 18.1 mmHg Right Ventricular Systolic Press 18.1 mmHg PV Peak Velocity 109.0 cm/s PV Peak Gradient 4.8 mmHg FINDINGS LEFT VENTRICLE Normal left ventricular size. Wall thickness is normal. The left ventricular systolic function is moderately reduced with an estimated ejection fraction in the range of 40-45%. RIGHT VENTRICLE Normal right ventricular size and systolic function. LEFT ATRIUM The left atrial size is normal. RIGHT ATRIUM The right atrial size is normal. ATRIAL SEPTUM Normal atrial septal thickness without atrial level shunting by limited color doppler interrogation. AORTA The aortic root and proximal ascending aorta are normal in size on limited imaging. MITRAL VALVE Mild mitral valve regurgitation. Calcification of both mitral valve leaflets. AORTIC VALVE Moderate aortic valve regurgitation. Moderate aortic valve stenosis. TRICUSPID VALVE The estimated pulmonary arterial pressure is 18mmHg. PULMONARY VALVE No pulmonary valve regurgitation or stenosis. VESSELS The inferior vena cava is dilated. PERICARDIUM A left sided pleural effusion is present. Og Rose MD, FACC, [facility] [place] (Electronically Signed) Final Date:31 October 2018 15:34
--- NOTE | 2018-10-31 17:30 | ECG ---
Date Performed: 10/30/2018 Time Performed: 18:48:32 PTAGE: 73 years EKG: SINUS TACHYCARDIA NONSPECIFIC ST & T-WAVE ABNORMALITY ANTEROSEPTAL INFARCT OF INDETERMINATE AGE Clinical correlation is recommended ABNORMAL RHYTHM ECG NO PREVIOUS TRACING DOCTOR: Karlie Dang Interpretating Date/Time 10/31/2018 17:27:16
[2018-11-01] MEDS: Insulin NovoLOG Aspart Correctional Sugar Inj SQ SCH ×4 (01:22→18:53)
[2018-11-01] MEDS ORDERED: Metoprolol Tartrate 25 MG Tablet PO SCH (05:00)
[2018-11-01] MEDS: Chlorhexidine Gluconate 2% 1 Pack (2 Cloths) TOPICAL SCH (05:10)
[2018-11-01 05:13] LABS: Baso # (Auto) 0.1 th/mm3 (0.0-0.2); Baso % (Auto) 0.9 % (0.0-2.0); Eos # (Auto) 0.3 th/mm3 (0.0-0.4); Eos % (Auto) 4.9 % (0.0-4.0); Hematocrit 35.8 % (39.0-51.0); Hemoglobin 12.6 gm/dL (13.0-17.0); Lymph # (Auto) 1.3 th/mm3 (1.0-4.8); Lymph % (Auto) 23.4 % (9.0-44.0); Mean Corpuscular HGB Conc 35.1 % (32.0-36.0); Mean Corpuscular Hemoglobin 32.3 pg (27.0-34.0); Mean Platelet Volume 7.5 fL (7.0-11.0); Mono # (Auto) 0.8 th/mm3 (0.0-0.9); Mono % (Auto) 13.8 % (0.0-8.0); Neut # (Auto) 3.3 th/mm3 (1.8-7.7); Platelet Count 175 th/mm3 (150-450); Red Blood Count 3.89 mil/mm3 (4.50-5.90); Red Cell Distribution Width 13.3 % (11.6-17.2); White Blood Count 5.7 th/mm3 (4.0-11.0)
[2018-11-01 05:29] LABS: Calcium 7.5 mg/dL (8.5-10.1); Carbon Dioxide 29.9 meq/L (21.0-32.0); Phosphorus 3.9 mg/dL (2.5-4.9); Potassium 3.2 meq/L (3.5-5.1)
--- NOTE | 2018-11-01 05:51 | XR ---
EXAM DATE: 11/01/2018 5:46 AM EST AGE/SEX: 73 years / Male INDICATIONS: Respiratory disease. CLINICAL DATA: This is the patient's subsequent encounter. Patient reports that signs and symptoms h ave been present for 2 days and indicates a pain score of Nonresponsive. MEDICAL/SURGICAL HISTORY: . Acute respiratory failure. Pulmonary edema. Elevated d-dimer. Epile psy. Atherosclerotic vascular disease. None. [place] [facility] [place]. . FINDINGS: There is patchy airspace disease at the lung bases. Cardiomegaly is noted. Degenerative changes of th e spine. CONCLUSION: Patchy basilar airspace disease. Electronically signed by: Thomas Moran MD 11/01/2018 5:50 AM EST
--- NOTE | 2018-11-01 06:00 | MB ---
cc: Aamir Jones DO DATE: 10/31/2018 REASON FOR CONSULTATION: Congestive heart failure, elevated troponin. HISTORY OF PRESENT ILLNESS: Parker Sanon is a pleasant 73-year-old male who sees my partner, Dr. Granado, in the office and presented to [facility] due to shortness of breath. He had a normal day and then went to his [employer] meeting. He had to walk up a few stairs to get there and started noticing his shortness of breath. Then, while sitting in the meeting, he got extremely short of breath. He presented to [place] due to the shortness of breath. During these episodes, he did have some chest heaviness. He states that he has never had an episode like this before. He is followed in the office with recent echocardiogram showing [id number] aortic stenosis with a mean gradient of 46, a normal ejection fraction and moderate aortic regurgitation. At the time of being seen in the office by Dr. Granado, he was asymptomatic and so she continued to treat him medically. PAST MEDICAL HISTORY: 1. Yblrvqfe-an-ktiyek aortic stenosis with moderate aortic regurgitation. 2. Moderate carotid disease. 3. History of epilepsy. 4. History of dilated cardiomyopathy, although most recent echocardiogram showed a normal function. 5. Hyperlipidemia. PAST SURGICAL HISTORY: Pyloric stenosis surgery. ALLERGIES: NO KNOWN DRUG ALLERGIES. MEDICATIONS: Previously in the office, he was on aspirin 81 mg daily, carbamazepine 600 mg twice a day, and a multivitamin. FAMILY HISTORY: Denies premature coronary artery disease or sudden cardiac within the family. SOCIAL HISTORY: Denies tobacco, alcohol or drug abuse. REVIEW OF SYSTEMS: Fourteen systems were reviewed including osteopathic. Pertinent positives and negatives above, otherwise negative. PHYSICAL EXAMINATION: VITAL SIGNS: Temperature 96.9, heart rate 76, blood pressure 100/56, respirations 14, pulse oximetry 96% on 2 liters. GENERAL: The patient appears well, in no acute distress. Alert, awake and oriented x3. HEENT: Extraocular muscles intact. Mucous membranes moist. NECK: Supple. No JVD at 45 degrees. No carotid bruits heard bilaterally. Carotid upstroke is brisk in nature. HEART: Regular rate and rhythm. Positive first and second heart sounds with a 3/6 crescendo/decrescendo murmur to the right sternal border, which damped into S2. There is a diastolic murmur to the apex. LUNGS: Decreased breath sounds bilaterally with rales at the bases. ABDOMEN: Soft, nontender, nondistended. No organomegaly noted. EXTREMITIES: Show no clubbing, cyanosis or edema. Femoral and distal pulses are intact bilaterally. NEUROLOGIC: No focal deficits. SKIN: Warm, dry and intact. OSTEOPATHIC: No kyphoscoliosis, lordosis or paraspinal tender points. LABORATORY DATA: Hemoglobin 13.5, hematocrit 39.3, platelets 179. Potassium 4.1, BUN 15, creatinine 0.9. Troponin 0.65. Electrocardiogram (10/30/2018 at 18:48): Sinus tachycardia, anterior septal infarct of indeterminate age, ST-T wave changes laterally, cannot rule out ischemia. IMPRESSION: 1. Acute heart failure, possibly systolic versus diastolic. 2. Acute respiratory failure with hypoxia, requiring BiPAP. 3. Pulmonary edema. 4. Known hphqcqnn-ov-mzlnuq aortic stenosis with moderate aortic regurgitation. 5. Possible mitral stenosis. 6. Hyponatremia due to fluid overload state. 7. History of seizure disorder. RECOMMENDATIONS: 1. Mr. Sanon presented with what appears to be acute heart failure, most likely due to his aortic stenosis as well as aortic regurgitation. 2. He did have a mildly elevated troponin, but this may be secondary to this. 3. History of previous ckvfqjqi-ym-dwjyfa aortic stenosis with moderate aortic regurgitation, was being treated medically, as he was asymptomatic, but at this time, I think he is showing the first signs of decompensation from his aortic stenosis. 4. Will plan for left and right heart catheterization to evaluate both his aortic valve, as well as his coronary anatomy and then he will need to be evaluated by surgery for further considerations of aortic valve replacement. 5. He will be n.p.o. after midnight for the procedure. Risks, benefits and alternatives have been explained to him and he consents to such. Thank you for allowing me to see Parker Sanon. If there are any questions, please do not hesitate to call. Aamir Jones, VGP/sv/kd , 10:54 PM , 11:06 PM
[2018-11-01] MEDS: Potassium Chlor 20 mEq Premix 20 MEQ/100 ML PIGGYBACK IV.SIG PRN ×4 (07:06→16:00)
[2018-11-01] MEDS: Pantoprazole Inj 40 MG Vial IV.PUSH SCH (09:24)
[2018-11-01] MEDS: carBAMazepine 200 MG Tablet PO SCH ×2 (09:25→21:40)
[2018-11-01] MEDS ORDERED: Heparin/NS PF Inj 1,000 ML ONE (11:05)
[2018-11-01] MEDS ORDERED: fentaNYL Citrate Inj 100 MCG/2 ML Ampul ONE (11:05)
[2018-11-01] MEDS ORDERED: Heparin 10,000 UNITS/10 ML Vial (for IV use) ONE (11:05)
--- NOTE | 2018-11-01 11:48 | P.PNIM ---
Subjective Interval history: Neuro/Psych: Seizure disorder NOS Currently on carbamazepine 600 mg twice daily. Seizure precautions Acetaminophen 650 p.o. every 6 hours as needed fever Hydrocodone/acetaminophen 5/325 1 tablet every 4 hours as needed pain 1 through 5 Morphine sulfate 2 mg IV every 2 hours as needed pain 6 through 10 CV: Atherosclerotic vascular disease History of carotid artery disease Elevated BNP Initial troponin revealed ST-T nonspecific changes with sinus tachycardia. Initial troponin less than 0.02. ->0.65 F/U 2D echocardiogram Patient follows with Dr. Granado/cardiology- F/U recommendations Resp: Acute respiratory failure Pulmonary edema BiPAP 10/07 at 40%-transition to nasal cannula 3 L continue to wean to maintain O2 sat greater than 92 per Albuterol/ipratropium aerosols every 4 hours with albuterol aerosols every 2 hours as needed dyspnea Wean FiO2 as tolerated. 10/30 CT pulmonary angiogram-negative for pulmonary embolus Head of bed at 30 degrees GI: Begin clear liquid diet Pantoprazole for GI prophylaxis Docusate sodium/senna 1 tablet twice daily for bowel regimen : Straight catheterization as needed Diuresed 2700 cc overnight Endo: Acute hyperglycemia Sliding scale insulin with Accu-Cheks to maintain euglycemia/every 6 hours aspart insulin low regimen Check TSH F/U Hgb A1C Renal: Creatinine currently within normal limit Monitor urine output Accurate I's and O's Heme: Elevated d-dimer CBC within normal limits Check coags No indication for transfusion of blood products at this time ID: 10/30 Blood cultures x2 -NGTD Monitor for signs of hematology infection FEN: Acute hyponatremia Check urine/serum Osm, urine sodium, uric acid, TSH and cortisol level Replace electrolytes as clinically indicated per ICU likely protocol Hold IV fluids MSK: Elevated BMI Weight loss encouraged PT evaluate and treat Access -Peripheral IV. Central line if indicated Prophylaxis -GI -pantoprazole - -DVT SCD/heparin subcu Physical Exam Vital signs: Last Vital Signs Temp 97.9 F 11/01/18 04:00 Pulse 76 11/01/18 08:23 Resp 14 11/01/18 08:23 BP 104/51 L 11/01/18 03:00 Pulse Ox 99 11/01/18 08:00 Intake & Output 10/30/18 10/31/18 11/01/18 11/02/18 06:59 06:59 06:59 06:59 Intake Total 240 / 240 1000 / 1000 100 / 100 Output Total 2710 / 2710 3980 / 3980 Balance -2470 / -2470 -2980 / -2980 100 / 100 Weight 111.3 kg 108.1 kg Results Labs CBC & Chem 7: 11/01/18 03:50 11/01/18 03:50 Labs: Microbiology 10/30/18 19:25 Blood - Line Aerobic Blood Culture - Preliminary No growth in 2 days 10/30/18 19:25 Blood - Line Anaerobic Blood Culture - Preliminary No growth in 2 days 10/30/18 19:20 Blood - Line Aerobic Blood Culture - Preliminary No growth in 2 days 10/30/18 19:20 Blood - Line Anaerobic Blood Culture - Preliminary No growth in 2 days Imaging Imaging: Impressions Chest X-Ray 11/01/18 04:00 CONCLUSION: Patchy basilar airspace disease. Assessment and Plan (1) BMI 38.0-38.9,adult: Code(s): Z68.38 - Body mass index (BMI) 38.0-38.9, adult Status: Chronic (2) Acute hyponatremia: Code(s): E87.1 - Hypo-osmolality and hyponatremia Status: Acute (3) Acute hyperglycemia: Code(s): R73.9 - Hyperglycemia, unspecified Status: Acute (4) Seizure disorder: Code(s): G40.909 - Epilepsy, unspecified, not intractable, without status epilepticus Status: Acute (5) Acute respiratory failure with hypoxia and hypercapnia: Code(s): J96.01 - Acute respiratory failure with hypoxia; J96.02 - Acute respiratory failure with hypercapnia Status: Acute (6) Pulmonary edema: Code(s): J81.1 - Chronic pulmonary edema Status: Acute (7) Elevated d-dimer: Code(s): R79.89 - Other specified abnormal findings of blood chemistry Status: Acute Plan 73-year-old male admitted secondary to acute pulmonary edema with an elevated troponin level Acute pulmonary edema Acute respiratory Failure Elevated BNP Elevated D-dimer Resolved Etiology may be related to hypertensive crisis versus anaphylaxis versus a myocardial event Plan for heart cath Continue diuretics as needed Elevated troponin Atherosclerotic vascular disease History of carotid artery disease Elevated BNP Systolic CHF Max troponin was 0.65 overnight with AM troponin of 0.51 Heart cath planned If no coronary artery disease is present this could be related to inflammation from anaphylaxis or mild demand ischemia from hypertensive crisis Cardiology following Echocardiogram shows mild systolic CHF Seizure disorder NOS Continue carbamazepine Seizure precautions Hyponatremia Not yet improved Follow clinically Diuresis DVT Prophylaxis SCDs Heparin Progress Note: Quality VTE Deep Vein Thrombosis/Pulmonary Embolism Present on Admission: No _ (1) Pulmonary edema Qualifiers: Chronicity: acute Qualified Code(s): J81.0 - Acute pulmonary edema
[2018-11-01] MEDS ORDERED: Iohexol 350 MG/ML 50 ML Vial (for Cath Lab) IVCONTRAST ONE (13:24)
--- NOTE | 2018-11-01 13:47 | P.CON ---
History of Present Illness Service: CT Surgery Consult date: 11/01/18 Requesting Physician: Aamir Jones Reason for Consult: Severe symptomatic aortic stenosis Primary Care Provider: UNKNOWN Chief Complaint: Shortness of breath History of Present Illness: 73-year-old male patient of Dr. Granado presented to [facility] due to shortness of breath. He presented with dyspnea and acute CHF. During these episodes, he did have some chest heaviness. He had a recent echocardiogram showing [id number] aortic stenosis with a mean gradient of 46, a normal ejection fraction and moderate aortic regurgitation. His ECHO on this admission shows decreased EF at ~45% with moderate to severe and moderate AI. LHC/RHC today shows no significant CAD. He is being considered for AVR. Review of Systems Constitutional: Denies anorexia, Denies body ache(s), Denies chills, Denies daytime sleepiness, Denies excessive sweating, Denies fatigue, Denies fever(s), Denies headache(s), Denies increased appetite, Denies lack of energy, Denies malaise, Denies night sweats, Denies weakness, Denies weight gain, Denies weight loss, Denies other Eyes: Denies blind spots, Denies blurry vision, Denies bulging eyes, Denies change in vision, Denies double vision, Denies discharge, Denies dry eyes, Denies floaters, Denies irritation, Denies itchy eyes, Denies loss of vision, Denies pain, Denies requires corrective lenses, Denies sensitivity to light, Denies other Ears, Nose, Mouth, and Throat: Denies abnormal hearing, Denies bleeding gums, Denies bad breath, Denies change in voice, Denies dental pain, Denies difficulty swallowing, Denies dizziness, Denies dry mouth, Denies ear discharge , Denies ear pain, Denies facial pain, Denies headache(s), Denies hearing loss, Denies hoarseness, Denies lip swelling, Denies nosebleed, Denies mouth lesions, Denies mouth pain, Denies nasal congestion, Denies nasal discharge, Denies nasal obstruction, Denies nasal trauma, Denies neck lump, Denies neck pain, Denies nose pain, Denies pain with swallowing, Denies poor balance, Denies post nasal drip, Denies ringing in the ears, Denies sinus pain, Denies sinus pressure , Denies sore throat, Denies throat swelling, Denies tongue swelling, Denies other Cardiovascular: Reports shortness of breath, Reports shortness of breath with activity Respiratory: Reports shortness of breath, Reports shortness of breath with activity Gastrointestinal: Denies abdominal pain, Denies belching, Denies black, tarry stools, Denies bloating, Denies bright, red blood in stools, Denies change in bowel habits, Denies constant urge to pass stool, Denies change in stools, Denies coffee ground vomit, Denies constipation, Denies cramping, Denies difficulty swallowing, Denies excessive passing of gas, Denies feeling full early, Denies heartburn, Denies incontinent of stools, Denies loose stools, Denies nausea, Denies pain with swallowing, Denies vomiting, Denies vomiting blood, Denies other Genitourinary: Denies blood in semen, Denies blood in urine, Denies decreased urination, Denies difficulty urinating, Denies difficulty with ejaculations, Denies erectile dysfunction, Denies genital lesions, Denies genital pain, Denies painful urination, Denies side pain, Denies frequent nighttime urination , Denies painful ejaculations, Denies penile discharge, Denies scrotal swelling , Denies testicle lump, Denies testicle pain, Denies urinary frequency, Denies urinary hesitancy, Denies urinary incontinence, Denies urinary urgency, Denies other Musculoskeletal: Denies abnormal walking, Denies back pain, Denies body aches, Denies decreased muscle mass, Denies deformity, Denies joint pain, Denies joint swelling, Denies limited joint movement, Denies loss of height, Denies muscle cramps, Denies muscle weakness, Denies neck pain, Denies numbness, Denies radiating pain into limb, Denies stiffness, Denies tingling, Denies other Skin/Breast: Denies acne, Denies bleeding lesions, Denies boil, Denies breast swelling, Denies breast skin changes, Denies breast pain, Denies breast lump, Denies change in breast shape, Denies change in hair, Denies change in skin color, Denies changing lesions, Denies dry skin, Denies excessive hair growth, Denies hair loss, Denies itching, Denies lesions, Denies nail changes, Denies new lesions, Denies nipple discharge, Denies non-healing lesions, Denies redness , Denies sensitivity to light, Denies rash, Denies skin pain, Denies skin ulcer , Denies sores, Denies stretch boone, Denies unusual bruising, Denies wounds, Denies yellowing of the skin, Denies other Neurologic: Reports seizure-like activity Psychiatric: Denies abnormal sleep pattern, Denies anxiety, Denies behavioral changes, Denies change in appetite, Denies change in sex drive, Denies confusion , Denies depression, Denies difficulty concentrating, Denies hearing things others do not hear, Denies hopelessness, Denies irritability, Denies lack of enjoyment, Denies memory loss, Denies mood swings, Denies panic attacks, Denies paranoia, Denies seeing things others do not see, Denies sensing things others do not sense, Denies tactile hallucinations, Denies thoughts of hurting/killing others, Denies thoughts of hurting/killing yourself, Denies other Endocrine: Denies cold intolerance, Denies excessive sweating, Denies flushing, Denies heat intolerance, Denies increased hunger, Denies increased thirst, Denies increased urination, Denies rapid, pounding, or irregular heartbeat, Denies other Hematologic/Lymphatic: Denies easy bleeding, Denies easy bruising, Denies enlarged lymph nodes, Denies other Allergic/Immunologic: Denies GI upset with certain foods, Denies hives, Denies itchy eyes, Denies lip swelling, Denies seasonal runny nose, Denies throat swelling, Denies tongue swelling, Denies wheezing, Denies other PMFSH - History History Provided By: Patient, Family Member - Medical History Medical History: Medical History (Last Reviewed 11/01/18 @ 13:45 by Shelly Monreal MD) Atherosclerotic vascular disease History of epilepsy - Surgical History Surgical History: Surgical History (Last Reviewed 11/01/18 @ 13:45 by Shelly Monreal MD) No pertinent past surgical history - Family History Family History: Family History (Last Reviewed 11/01/18 @ 13:45 by Shelly Monreal MD) Other Family history non-contributory - Tobacco History Second Hand Smoke Exposure: No Tobacco Use In Past 30 Days: No Smoking Status: Former smoker Tobacco Type: Pipe - Alcohol History How Often Do You Have a Drink Containing Alcohol: Never - Substance Use History Substance History: No History of Abuse - Travel History Recent Travel in the [place] Within the Last 8 Weeks: No Recent Travel Out of the Country Within the Last 8 Weeks: No - Immunization History Tetanus Immunization: >5 Years Hx Influenza Vaccine This Season: No Medications and Allergies Active Medications: Active Medications Acetaminophen (Tylenol) 650 mg PO Q6H PRN PRN Reason: Fever >101f Hydrocodone Bitart/Acetaminophen (Meta 5/325) 1 tab PO Q4H PRN PRN Reason: PAIN SCALE 1 TO 5 Al Hydroxide/Mg Hydroxide (Milk Of Magnse Liq) 30 ml PO Q12H PRN PRN Reason: Mild Constipation Albuterol (Albuterol Neb (Prn)) 2.5 mg NEB Q2HR NEB PRN PRN Reason: SHORTNESS OF BREATH/WHEEZING Albuterol (Duoneb Neb (Lakshmi)) 1 ampul NEB Q4HR NEB [facility] Last Admin: 11/01/18 12:43 Dose: Not Given Aspirin (Aspirin Chew) 81 mg PO DAILY [facility] Last Admin: 11/01/18 09:24 Dose: 81 mg Bisacodyl (Dulcolax Supp) 10 mg RECTAL DAILY PRN PRN Reason: SEVERE CONSITIPATION Carbamazepine (Tegretol) 600 mg PO BID [facility] Last Admin: 11/01/18 09:25 Dose: 600 mg Chlorhexidine Gluconate (Chlorhexidine 2% Cloth) 3 pack TOPICAL DAILY@0400 PRN PRN Reason: Extra cloth needed Stop: 11/05/18 03:59 Chlorhexidine Gluconate (Chlorhexidine 2% Cloth) 3 pack TOPICAL DAILY@0400 [facility] Stop: 11/05/18 03:59 Last Admin: 11/01/18 05:10 Dose: 3 pack Dextrose (D50w Vial) 50 ml IV.PUSH UNSCH PRN PRN Reason: PER HYPOGLYCEMIA PROTOCOL Furosemide (Lasix) 40 mg PO DAILY [facility] Glucagon (Glucagon Inj) 1 mg OTHER PRN PRN PRN Reason: for Hypoglycemia Protocol Hydralazine HCl (Apresoline Inj) 10 mg IV.PUSH Q1H PRN PRN Reason: SYS BP GREATER THAN 170 MMHG Magnesium Sulfate 4 gm/ Sodium (Chloride) 100 mls @ 50 mls/hr IV.SIG UNSCH PRN PRN Reason: For Magnesium 0.9 - 1.1 mg/dL Magnesium Sulfate 2 gm/ Sodium (Chloride) 100 mls @ 50 mls/hr IV.SIG UNSCH PRN PRN Reason: For Magnesium 1.2 - 1.6 mg/dL Potassium Chloride (Kcl 40 Meq Premix Inj) 40 meq in 100 mls @ 25 mls/hr IV.SIG Q2H PRN PRN Reason: For Potassium 2.8 - 3.2 mEq/L Potassium Chloride (Kcl 20 Meq Premix Inj) 20 meq in 100 mls @ 50 mls/hr IV.SIG Q2H PRN PRN Reason: For Potassium 3.3 - 3.5 mEq/L Potassium Chloride (Kcl 20 Meq Premix Inj) 20 meq in 100 mls @ 50 mls/hr IV.SIG Q2H PRN PRN Reason: For Potassium 2.8 - 3.2 mEq/L Last Admin: 11/01/18 08:37 Dose: 50 mls/hr Potassium Phosphate 30 mmol/ (Sodium Chloride) 260 mls @ 42 mls/hr IV.SIG UNSCH PRN PRN Reason: SEE LABEL COMMENTS Sodium Phosphate 30 mmol/ (Sodium Chloride) 260 mls @ 42 mls/hr IV.SIG UNSCH PRN PRN Reason: For Phosphorus < 2.5 mg/dL Potassium Chloride (Kcl 40 Meq Premix Inj) 40 meq in 100 mls @ 25 mls/hr IV.SIG UNSCH PRN PRN Reason: For Potassium 3.3 - 3.5 mEq/L Insulin Aspart (Novolog Insulin Correctional Sugar Inj) 0 unit SQ Q6HR [facility]; Protocol Last Admin: 11/01/18 05:10 Dose: Not Given Isosorbide Dinitrate (Isordil) 10 mg PO Q8HR [facility] Last Admin: 11/01/18 05:10 Dose: 10 mg Labetalol HCl (Trandate Inj) 10 mg IV.PUSH Q1H PRN PRN Reason: Sbp>165, Dbp>90, Hr>65 Lactulose (Lactulose Liq) 30 ml PO DAILY PRN PRN Reason: SEVERE CONSITIPATION Magnesium Oxide (Mag-Ox) 800 mg PO UNSCH PRN PRN Reason: For Magnesium 1.2 - 1.6 mg/dL Morphine Sulfate (Morphine Inj) 2 mg IV.PUSH Q2H PRN PRN Reason: PAIN SCALE 6 TO 10 Ondansetron HCl (Zofran Inj) 4 mg IV.PUSH Q6H PRN PRN Reason: NAUSEA OR VOMITING Pantoprazole Sodium (Protonix Inj) 40 mg IV.PUSH DAILY [facility] Last Admin: 11/01/18 09:24 Dose: 40 mg Potassium Bicarb/Potassium Chloride (K-Lyte Cl Eff) 50 meq PO UNSCH PRN PRN Reason: For Potassium 3.3 - 3.5 mEq/L Potassium Phosphate (K-Phos Original) 2,000 mg PO Q4H PRN PRN Reason: Phosphorus Less Than 2.5 mg/dL Potassium Phosphate (K-Phos Original) 2,000 mg PO UNSCH PRN PRN Reason: SEE LABEL COMMENTS Senna/Docusate Sodium (Sinai-Colace) 1 tab PO BID [facility] Last Admin: 10/31/18 20:17 Dose: 1 tab Sennosides (Senokot) 17.2 mg PO Q12H PRN PRN Reason: Moderate Constipation Sodium Chloride (Ns Flush) 2 ml IV.FLUSH BID [facility] Sodium Chloride (Ns Flush) 2 ml IV.FLUSH PRN PRN PRN Reason: FLUSH AFTER USING IV ACCESS Allergies Allergy/AdvReac Type Severity Reaction Status Date / Time No Known Allergies Allergy Verified 10/30/18 18:40 Home Medications Medication Instructions Recorded Confirmed Type Unable to Obtain Home Meds 10/30/18 10/30/18 History Physical Exam Vital signs: Vital Signs 10/31/18 14:00 10/31/18 15:31 10/31/18 16:00 Temperature 97.4 F L Pulse Rate 84 76 81 Respiratory Rate 18 18 Blood Pressure 94/54 L Pulse Oximetry 97 10/31/18 20:00 10/31/18 20:14 10/31/18 23:37 Temperature 99.0 F Pulse Rate 78 77 74 Respiratory Rate 16 20 Blood Pressure 110/57 L Pulse Oximetry 94 L 92 L 10/31/18 23:46 11/01/18 00:00 11/01/18 01:00 Temperature 98.1 F Pulse Rate 72 83 78 Respiratory Rate 18 Blood Pressure 110/57 L Pulse Oximetry 96 92 L 11/01/18 01:01 11/01/18 02:00 11/01/18 03:00 Temperature Pulse Rate 79 73 76 Respiratory Rate Blood Pressure 111/53 L 108/56 L 104/51 L Pulse Oximetry 93 L 95 93 L 11/01/18 04:00 11/01/18 06:46 11/01/18 08:00 Temperature 97.9 F Pulse Rate 80 86 Respiratory Rate Blood Pressure Pulse Oximetry 96 99 99 11/01/18 08:23 Temperature Pulse Rate 76 Respiratory Rate 14 Blood Pressure Pulse Oximetry Intake & Output 10/31/18 11/01/18 11/01/18 18:59 06:59 18:59 Intake Total 900 / 900 100 / 100 100 / 100 Output Total 1750 / 1750 2230 / 2230 Balance -850 / -850 -2130 / -2130 100 / 100 Weight 108.1 kg Intake: IV 100 / 100 KCl 20 mEq Premix Inj 20 meq In 100 / 100 100 ml @ 50 mls/hr IV.SIG Q2H PRN Rx#:[id number] Oral 900 / 900 100 / 100 Output: Urine 1750 / 1750 2230 / 2230 Other: Date of Last Bowel Movement 10/29/18 10/29/18 - Constitutional no acute distress - Routine HEENT Exam Head: Present: normocephalic, atraumatic Eye: Present: EOMI, PERRL, normal accommodation ENT: Present: mucous membranes moist - Routine Neck Exam Present: supple - Routine Respiratory Exam Present: crackles - Routine Cardiovascular Exam Present: RRR, S1, S2 - Detailed Cardiovascular Exam: Murmur 1 Type: Present: holosystolic Location: Present: right sternal border Characteristics: Present: crescendo - Routine Abdominal Exam Present: soft, normoactive bowel sounds. Absent: tenderness - Routine Extremities Exam Present: pulses intact. Absent: cyanosis, clubbing - Routine Skin Exam Present: intact - Routine Neurological Exam Present: alert, oriented X3 - Routine Psychiatric Exam Present: normal affect Results - Labs CBC & Chem 7: 11/01/18 03:50 11/01/18 03:50 Labs: Laboratory Results - last 24 hr 10/31/18 10/31/18 11/01/18 02:54 17:44 00:19 WBC RBC Hgb Hct MCV MCH MCHC RDW Plt Count MPV Neut % (Auto) Lymph % (Auto) Boundary % (Auto) Eos % (Auto) Baso % (Auto) Neut # (Auto) Lymph # (Auto) Boundary # (Auto) Eos # (Auto) Baso # (Auto) WBC Differential Differential Comment Sodium Potassium Chloride Carbon Dioxide Anion Gap BUN Creatinine Estimated GFR POC Glucose 145 H 180 H Random Glucose Hemoglobin A1c 4.7 Calcium Phosphorus Magnesium B-Natriuretic Peptide 11/01/18 11/01/18 11/01/18 03:50 03:50 03:50 WBC 5.7 RBC 3.89 L Hgb 12.6 L Hct 35.8 L MCV 92.0 MCH 32.3 MCHC 35.1 RDW 13.3 Plt Count 175 MPV 7.5 Neut % (Auto) 57.0 Lymph % (Auto) 23.4 Boundary % (Auto) 13.8 H Eos % (Auto) 4.9 H Baso % (Auto) 0.9 Neut # (Auto) 3.3 Lymph # (Auto) 1.3 Boundary # (Auto) 0.8 Eos # (Auto) 0.3 Baso # (Auto) 0.1 WBC Differential . Differential Comment Auto diff final Sodium 128 L Potassium 3.2 L D Chloride 88 L Carbon Dioxide 29.9 Anion Gap 10 BUN 19 H Creatinine 0.88 Estimated GFR 85 L POC Glucose Random Glucose 91 Hemoglobin A1c Calcium 7.5 L Phosphorus 3.9 Magnesium 2.0 B-Natriuretic Peptide 459 H 11/01/18 11/01/18 05:17 13:06 WBC RBC Hgb Hct MCV MCH MCHC RDW Plt Count MPV Neut % (Auto) Lymph % (Auto) Boundary % (Auto) Eos % (Auto) Baso % (Auto) Neut # (Auto) Lymph # (Auto) Boundary # (Auto) Eos # (Auto) Baso # (Auto) WBC Differential Differential Comment Sodium Potassium Chloride Carbon Dioxide Anion Gap BUN Creatinine Estimated GFR POC Glucose 130 H 113 H Random Glucose Hemoglobin A1c Calcium Phosphorus Magnesium B-Natriuretic Peptide - Imaging Impressions Chest X-Ray 11/01/18 04:00 CONCLUSION: Patchy basilar airspace disease. Chest CTA 10/30/18 19:34 CONCLUSION: 1. Bilateral alveolar opacities again noted most characteristic of pulmonary edema. 2. Small to moderate bilateral pleural effusions. 3. No evidence of pulmonary emboli. 4. Coronary artery calcifications. Venous Doppler Study 10/31/18 00:00 CONCLUSION: No venous thrombosis is identified within either lower extremity. Chest X-Ray 11/01/18 04:00 CONCLUSION: Patchy basilar airspace disease. Assessment and Plan - Assessment (1) Aortic stenosis Code(s): I35.0 - Nonrheumatic aortic (valve) stenosis Status: Acute (2) Aortic insufficiency Code(s): I35.1 - Nonrheumatic aortic (valve) insufficiency Status: Acute (3) Combined systolic and diastolic congestive heart failure Code(s): I50.40 - Unspecified combined systolic (congestive) and diastolic ( congestive) heart failure Status: Acute (4) Pulmonary edema Code(s): J81.1 - Chronic pulmonary edema Status: Acute - Plan AVR is recommended. Risks and benefits were discussed and a minimally invasive approach is feasible. He understands there is a risk for requiring median sternotomy as well as a pacemaker. STS risk as follows: STS Adult Cardiac Surgery Database Version 2.9 RISK SCORES Procedure: Isolated AVR CALCULATE Risk of Mortality: 2.707% Renal Failure: 1.984% Permanent Stroke: 1.177% Prolonged Ventilation: 12.635% DSW Infection: 0.155% Reoperation: 6.718% Morbidity or Mortality: 18.045% Short Length of Stay: 30.931% Long Length of Stay: 8.668% Plan for AVR 11/01/18 (1) Aortic stenosis Qualifiers: Cardiac valve disease etiology: etiology unspecified Qualified Code(s): I35.0 - Nonrheumatic aortic (valve) stenosis (2) Aortic insufficiency Qualifiers: Cardiac valve disease etiology: etiology unspecified Qualified Code(s): I35.1 - Nonrheumatic aortic (valve) insufficiency (3) Combined systolic and diastolic congestive heart failure Qualifiers: Heart failure chronicity: acute on chronic Qualified Code(s): I50.43 - Acute on chronic combined systolic (congestive) and diastolic (congestive) heart failure (4) Pulmonary edema Qualifiers: Chronicity: acute Qualified Code(s): J81.0 - Acute pulmonary edema
[2018-11-01] MEDS ORDERED: Insulin Regular (For Infusion) 100 UNIT in Sodium Chlor 0.9% Inj 99 ML IV.CONT PRN (14:27)
[2018-11-01] MEDS ORDERED: Dextrose 50% in Water 50 ML Vial IV.PUSH PRN (14:27)
[2018-11-01] MEDS ORDERED: Sodium Chloride 0.9% Irr Bot 500 ML, ceFAZolin Inj 500 MG IRRIGATION SCH ×2 (14:30)
[2018-11-01] MEDS ORDERED: Chlorhexidine 4% Topical 120 APPLIC/120 ML Bottle TOPICAL SCH (14:30)
[2018-11-01] MEDS ORDERED: ceFAZolin 2 GM Premix Inj 2 GM/50 ML PIGGYBACK IV.SIG SCH (15:00)
[2018-11-01] MEDS ORDERED: ceFAZolin 2 GM Premix Inj 2 GM/50 ML PIGGYBACK IV.SIG ONE (15:00)
--- NOTE | 2018-11-01 15:41 | US ---
EXAM DATE: 11/01/2018 3:27 PM EST AGE/SEX: 73 years / Male INDICATIONS: Occlusion. CLINICAL DATA: This is the patient's initial encounter. Patient reports that signs and symptoms have been present for 1 day and indicates a pain score of 0/10. MEDICAL/SURGICAL HISTORY: . Atherosclerotic vascular disease. Epilepsy. Hyperlipidemia. CAD. Ac brett respiratory failure. . Pyloric stenosis surgery. COMPARISON: No prior exams available for comparison. VELOCITY PARAMETERS: ICA/CCA Ratio: Right 0.8 , Left 0.7 ICA: Right 103 cm/sec, Left 98 cm/sec CCA: Right 123 cm/sec, Left 131 cm/sec ECA: Right 86 cm/sec, Left 103 cm/sec Vertebral: Right 52 cm/sec antegrade, Left 51 cm/sec antegrade FINDINGS: Right Carotid: There is mild calcified plaque in the mid common carotid artery and carotid bulb. Mil d calcified and noncalcified plaque is also visualized at the origin of the internal carotid artery.T he waveforms are within normal limits. Left Carotid: There is a moderate size focal calcified and noncalcified plaque in the proximal to mi d aspect of the common carotid artery and there is mild calcified plaque in the carotid bulb and prox imal internal carotid artery. There is spectral broadening. Other: None. CONCLUSION: 1. Right Internal Carotid Artery: Findings indicate <50% stenosis. 2. Left Internal Carotid Artery: Findings indicate <50% stenosis. Electronically signed by: Colin Solomon MD 11/01/2018 3:40 PM EST
[2018-11-01] MEDS: Senna/Docusate Sodium 8.6/50 MG Tablet PO SCH ×2 (17:17→21:06)
--- NOTE | 2018-11-01 17:41 | P.PNCA ---
Subjective Interval history: Cardiac cath today showing no significant CAD Severe with mean gradient of 42 Mild MS Diuresed relatively well by RHC numbers Medications and Allergies Active Medications: Active Medications Acetaminophen (Tylenol) 650 mg PO Q6H PRN PRN Reason: Fever >101f Hydrocodone Bitart/Acetaminophen ([place] 5/325) 1 tab PO Q4H PRN PRN Reason: PAIN SCALE 1 TO 5 Al Hydroxide/Mg Hydroxide (Milk Of Magnse Liq) 30 ml PO Q12H PRN PRN Reason: Mild Constipation Albuterol (Albuterol Neb (Prn)) 2.5 mg NEB Q2HR NEB PRN PRN Reason: SHORTNESS OF BREATH/WHEEZING Albuterol (Duoneb Neb (Shaun)) 1 ampul NEB Q4HR NEB [facility] Last Admin: 11/01/18 15:53 Dose: 1 ampul Aspirin (Aspirin Chew) 81 mg PO DAILY [facility] Last Admin: 11/01/18 09:24 Dose: 81 mg Atorvastatin Calcium (Lipitor) 40 mg PO HS [facility] Bisacodyl (Dulcolax Supp) 10 mg RECTAL DAILY PRN PRN Reason: SEVERE CONSITIPATION Carbamazepine (Tegretol) 600 mg PO BID [facility] Last Admin: 11/01/18 09:25 Dose: 600 mg Chlorhexidine Gluconate (Chlorhexidine 2% Cloth) 3 pack TOPICAL DAILY@0400 PRN PRN Reason: Extra cloth needed Stop: 11/05/18 03:59 Chlorhexidine Gluconate (Chlorhexidine 2% Cloth) 3 pack TOPICAL DAILY@0400 [facility] Stop: 11/05/18 03:59 Last Admin: 11/01/18 05:10 Dose: 3 pack Chlorhexidine Gluconate (Hibiclens 4% Topical) 1 applicatio TOPICAL PICKER OPERATOR [facility] Stop: 11/07/18 14:27 Sodium Chloride 500 ml/ (Cefazolin Sodium 500 mg) 0 ml IRRIGATION PICKER OPERATOR [facility] Stop: 11/07/18 14:29 Dextrose (D50w Vial) 50 ml IV.PUSH UNSCH PRN PRN Reason: PER HYPOGLYCEMIA PROTOCOL Dextrose (D50w Vial) 50 ml IV.PUSH UNSCH PRN PRN Reason: PER HYPOGLYCEMIA PROTOCOL Furosemide (Lasix) 40 mg PO DAILY [facility] Glucagon (Glucagon Inj) 1 mg OTHER PRN PRN PRN Reason: for Hypoglycemia Protocol Hydralazine HCl (Apresoline Inj) 10 mg IV.PUSH Q1H PRN PRN Reason: SYS BP GREATER THAN 170 MMHG Magnesium Sulfate 4 gm/ Sodium (Chloride) 100 mls @ 50 mls/hr IV.SIG UNSCH PRN PRN Reason: For Magnesium 0.9 - 1.1 mg/dL Magnesium Sulfate 2 gm/ Sodium (Chloride) 100 mls @ 50 mls/hr IV.SIG UNSCH PRN PRN Reason: For Magnesium 1.2 - 1.6 mg/dL Potassium Chloride (Kcl 40 Meq Premix Inj) 40 meq in 100 mls @ 25 mls/hr IV.SIG Q2H PRN PRN Reason: For Potassium 2.8 - 3.2 mEq/L Potassium Chloride (Kcl 20 Meq Premix Inj) 20 meq in 100 mls @ 50 mls/hr IV.SIG Q2H PRN PRN Reason: For Potassium 3.3 - 3.5 mEq/L Potassium Chloride (Kcl 20 Meq Premix Inj) 20 meq in 100 mls @ 50 mls/hr IV.SIG Q2H PRN PRN Reason: For Potassium 2.8 - 3.2 mEq/L Last Admin: 11/01/18 16:00 Dose: 50 mls/hr Potassium Phosphate 30 mmol/ (Sodium Chloride) 260 mls @ 42 mls/hr IV.SIG UNSCH PRN PRN Reason: SEE LABEL COMMENTS Sodium Phosphate 30 mmol/ (Sodium Chloride) 260 mls @ 42 mls/hr IV.SIG UNSCH PRN PRN Reason: For Phosphorus < 2.5 mg/dL Potassium Chloride (Kcl 40 Meq Premix Inj) 40 meq in 100 mls @ 25 mls/hr IV.SIG UNSCH PRN PRN Reason: For Potassium 3.3 - 3.5 mEq/L Insulin Human Regular 100 unit (/ Sodium Chloride) 100 mls @ 3 mls/hr IV.CONT TITRATE PRN; Protocol PRN Reason: See Protocol Cefazolin Sodium/Dextrose (Ancef 2 Gm Premix Inj) 2 gm in 50 mls @ 100 mls/hr IV.SIG PICKER OPERATOR [facility] Stop: 11/07/18 14:59 Insulin Aspart (Novolog Insulin Correctional Sugar Inj) 0 unit SQ Q6HR SHAUN; Protocol Last Admin: 11/01/18 17:17 Dose: Not Given Isosorbide Dinitrate (Isordil) 10 mg PO Q8HR [facility] Last Admin: 11/01/18 17:18 Dose: Not Given Labetalol HCl (Trandate Inj) 10 mg IV.PUSH Q1H PRN PRN Reason: Sbp>165, Dbp>90, Hr>65 Lactulose (Lactulose Liq) 30 ml PO DAILY PRN PRN Reason: SEVERE CONSITIPATION Magnesium Oxide (Mag-Ox) 800 mg PO UNSCH PRN PRN Reason: For Magnesium 1.2 - 1.6 mg/dL Metoprolol Tartrate (Lopressor) 12.5 mg PO PICKER OPERATOR [facility] Stop: 11/07/18 14:29 Morphine Sulfate (Morphine Inj) 2 mg IV.PUSH Q2H PRN PRN Reason: PAIN SCALE 6 TO 10 Ondansetron HCl (Zofran Inj) 4 mg IV.PUSH Q6H PRN PRN Reason: NAUSEA OR VOMITING Pantoprazole Sodium (Protonix Inj) 40 mg IV.PUSH DAILY [facility] Last Admin: 11/01/18 09:24 Dose: 40 mg Potassium Bicarb/Potassium Chloride (K-Lyte Cl Eff) 50 meq PO UNSCH PRN PRN Reason: For Potassium 3.3 - 3.5 mEq/L Potassium Phosphate (K-Phos Original) 2,000 mg PO Q4H PRN PRN Reason: Phosphorus Less Than 2.5 mg/dL Potassium Phosphate (K-Phos Original) 2,000 mg PO UNSCH PRN PRN Reason: SEE LABEL COMMENTS Senna/Docusate Sodium (Sinai-Colace) 1 tab PO BID [facility] Last Admin: 11/01/18 17:17 Dose: Not Given Sennosides (Senokot) 17.2 mg PO Q12H PRN PRN Reason: Moderate Constipation Sodium Chloride (Ns Flush) 2 ml IV.FLUSH BID [facility] Sodium Chloride (Ns Flush) 2 ml IV.FLUSH PRN PRN PRN Reason: FLUSH AFTER USING IV ACCESS Sodium Chloride (Ns Flush) 2 ml IV.FLUSH BID [facility] Sodium Chloride (Ns Flush) 2 ml IV.FLUSH PRN PRN PRN Reason: FLUSH AFTER USING IV ACCESS Allergies Allergy/AdvReac Type Severity Reaction Status Date / Time No Known Allergies Allergy Verified 10/30/18 18:40 Home Medications Medication Instructions Recorded Confirmed Type Unable to Obtain Home Meds 10/30/18 10/30/18 History Physical Exam Vital signs: Vital Signs 10/31/18 20:00 10/31/18 20:14 10/31/18 23:37 Temperature 99.0 F Pulse Rate 78 77 74 Respiratory Rate 16 20 Blood Pressure 110/57 L Pulse Oximetry 94 L 92 L 10/31/18 23:46 11/01/18 00:00 11/01/18 01:00 Temperature 98.1 F Pulse Rate 72 83 78 Respiratory Rate 18 Blood Pressure 110/57 L Pulse Oximetry 96 92 L 11/01/18 01:01 11/01/18 02:00 11/01/18 03:00 Temperature Pulse Rate 79 73 76 Respiratory Rate Blood Pressure 111/53 L 108/56 L 104/51 L Pulse Oximetry 93 L 95 93 L 11/01/18 04:00 11/01/18 06:46 11/01/18 08:00 Temperature 97.9 F Pulse Rate 80 78 Respiratory Rate Blood Pressure 136/60 Pulse Oximetry 96 99 100 11/01/18 08:23 11/01/18 12:00 11/01/18 13:00 Temperature Pulse Rate 76 90 90 Respiratory Rate 14 Blood Pressure 125/67 Pulse Oximetry 95 11/01/18 14:00 11/01/18 15:00 11/01/18 15:54 Temperature Pulse Rate 92 H 91 H 90 Respiratory Rate 16 Blood Pressure 118/64 105/57 L Pulse Oximetry 94 L 94 L 11/01/18 16:00 11/01/18 16:30 Temperature Pulse Rate 94 H 94 H Respiratory Rate Blood Pressure 115/59 L 115/59 L Pulse Oximetry 94 L 94 L Intake & Output 10/31/18 11/01/18 11/01/18 18:59 06:59 18:59 Intake Total 900 / 900 100 / 100 810 / 810 Output Total 1750 / 1750 2230 / 2230 Balance -850 / -850 -2130 / -2130 810 / 810 Weight 108.1 kg Intake: IV 310 / 310 Heparin/NS PF Inj 1,000 ML @ 0 10 / 10 mls/hr .ROUTE .STK-MED ONE Rx#: [id number] KCl 20 mEq Premix Inj 20 meq In 300 / 300 100 ml @ 50 mls/hr IV.SIG Q2H PRN Rx#:[id number] Oral 900 / 900 100 / 100 Anesthesia Amount 500 / 500 Output: Urine 1750 / 1750 2230 / 2230 Other: Date of Last Bowel Movement 10/29/18 10/29/18 Narrative: GENERAL: NAD, AAOx3 SKIN: Warm and dry. HEAD: Atraumatic. Normocephalic. EYES: Pupils equal and round. No scleral icterus. No injection or drainage. ENT: No nasal bleeding or discharge. Mucous membranes pink and moist. NECK: Trachea midline. No JVD. CARDIOVASCULAR: Regular rate and rhythm. RESPIRATORY: No accessory muscle use. Decreased breath sounds bilaterally GASTROINTESTINAL: Abdomen soft, non-tender, nondistended. Hepatic and splenic margins not palpable. MUSCULOSKELETAL: Extremities without clubbing, cyanosis, or edema. No obvious deformities. NEUROLOGICAL: Awake and alert. No obvious cranial nerve deficits. Motor grossly within normal limits. Five out of 5 muscle strength in the arms and legs. Normal speech. PSYCHIATRIC: Appropriate mood and affect; insight and judgment normal. Results 11/01/18 03:50 11/01/18 03:50 Cardiac Enzymes 10/30/18 10/30/18 10/30/18 Range/Units 18:45 18:45 20:30 AST 30 (15-37) U/L Troponin I Less than 0.02 L Cancelled (0.02-0.05) ng/mL B-Natriuretic Peptide 537 H (0-100) pg/mL 10/30/18 10/31/18 10/31/18 Range/Units 20:30 02:54 10:26 AST 24 (15-37) U/L Troponin I 0.21 H 0.65 H* 0.51 H (0.02-0.05) ng/mL B-Natriuretic Peptide (0-100) pg/mL 11/01/18 Range/Units 03:50 AST (15-37) U/L Troponin I (0.02-0.05) ng/mL B-Natriuretic Peptide 459 H (0-100) pg/mL Coagulation 10/30/18 10/31/18 11/01/18 Range/Units 18:45 02:54 03:50 PT 10.8 (9.8-11.6) sec APTT 27.5 (23.4-31.7) sec B-Natriuretic Peptide 537 H 459 H (0-100) pg/mL Lipids 10/30/18 10/31/18 Range/Units 20:30 02:54 Triglycerides Cancelled 41 L Cholesterol Cancelled 231 H HDL Cholesterol Cancelled 87.7 H Cholesterol/HDL Ratio Cancelled 2.63 CBC 10/30/18 10/31/18 11/01/18 Range/Units 18:45 02:54 03:50 WBC 8.5 9.8 5.7 (4.0-11.0) th/mm3 RBC 4.91 4.23 L 3.89 L (4.50-5.90) mil/mm3 Hgb 15.8 13.5 D 12.6 L (13.0-17.0) gm/dL Hct 46.2 39.3 35.8 L (39.0-51.0) % Plt Count 268 179 D 175 (150-450) th/mm3 Neut # (Auto) 3.5 8.4 H 3.3 (1.8-7.7) th/mm3 Lymph # (Auto) 3.7 0.4 L 1.3 (1.0-4.8) th/mm3 [place] # (Auto) 0.8 0.9 0.8 (0.0-0.9) th/mm3 Eos # (Auto) 0.3 0.0 0.3 (0.0-0.4) th/mm3 Baso # (Auto) 0.1 0.0 0.1 (0.0-0.2) th/mm3 Comprehensive Metabolic Panel 10/30/18 10/31/18 11/01/18 Range/Units 18:45 02:54 03:50 Sodium 126 L 129 L 128 L (136-145) meq/L Potassium 4.1 4.1 3.2 L D (3.5-5.1) meq/L Chloride 93 L 91 L 88 L (98-107) meq/L Carbon Dioxide 23.6 31.1 29.9 (21.0-32.0) meq/L BUN 14 15 19 H (7-18) mg/dL Creatinine 0.95 0.90 0.88 (0.60-1.30) mg/dL Calcium 8.3 L 7.5 L D 7.5 L (8.5-10.1) mg/dL AST 30 24 (15-37) U/L ALT 28 22 (12-78) U/L Alkaline Phosphatase 96 78 (45-117) U/L Total Protein 7.3 5.8 L D (6.4-8.2) g/dL Albumin 4.1 3.2 L D (3.4-5.0) g/dL Intake and Output 11/01/18 11/01/18 11/01/18 06:59 14:59 22:59 Intake Total 100 / 100 710 / 710 100 / 100 Output Total 2230 / 2230 Balance -2130 / -2130 710 / 710 100 / 100 Intake: IV 210 / 210 100 / 100 Heparin/NS PF Inj 1,000 ML @ 0 10 / 10 mls/hr .ROUTE .STK-MED ONE Rx#: [id number] KCl 20 mEq Premix Inj 20 meq In 200 / 200 100 / 100 100 ml @ 50 mls/hr IV.SIG Q2H PRN Rx#:[id number] Oral 100 / 100 Anesthesia Amount 500 / 500 Output: Urine 2230 / 2230 Other: Date of Last Bowel Movement 10/29/18 10/29/18 Weight 108.1 kg - Imaging and Cardiology Imaging: Impressions Chest X-Ray 10/30/18 18:37 CONCLUSION: Bilateral alveolar opacities most characteristic of pulmonary edema. These may be cardiogenic or noncardiogenic in origin. Chest CTA 10/30/18 19:34 CONCLUSION: 1. Bilateral alveolar opacities again noted most characteristic of pulmonary edema. 2. Small to moderate bilateral pleural effusions. 3. No evidence of pulmonary emboli. 4. Coronary artery calcifications. Venous Doppler Study 10/31/18 00:00 CONCLUSION: No venous thrombosis is identified within either lower extremity. Chest X-Ray 11/01/18 04:00 CONCLUSION: Patchy basilar airspace disease. Carotid Doppler Study 11/01/18 14:27 CONCLUSION: 1. Right Internal Carotid Artery: Findings indicate <50% stenosis. 2. Left Internal Carotid Artery: Findings indicate <50% stenosis. Assessment and Plan - Assessment (1) Acute respiratory distress Code(s): R06.03 - Acute respiratory distress Status: Acute (2) Pulmonary edema Code(s): J81.1 - Chronic pulmonary edema Status: Acute (3) Aortic stenosis Code(s): I35.0 - Nonrheumatic aortic (valve) stenosis Status: Acute (4) Aortic insufficiency Code(s): I35.1 - Nonrheumatic aortic (valve) insufficiency Status: Acute - Plan 1) Acute respiratory distress/pulmonary edema/acute heart failure Due to severe EF 40-45% 2) Severe by cath Mean gradient 42mmHg 3) Mild MS by cath Mean gradient 4mmHG at a heart rate of 88 bpm 4) Diuresed well from RHC numbers May be intravascularly dry after 5.5L diuresed off Will change Lasix to PO for now and reassess CHF status 5) Discussed with him and his about results and need for AVR Discussed with CT surgery, will see in consultation 6) If concerns over the weekend, Dr. Stockton will be covering (2) Pulmonary edema Qualifiers: Chronicity: acute Qualified Code(s): J81.0 - Acute pulmonary edema (3) Aortic stenosis Qualifiers: Cardiac valve disease etiology: etiology unspecified Qualified Code(s): I35.0 - Nonrheumatic aortic (valve) stenosis (4) Aortic insufficiency Qualifiers: Cardiac valve disease etiology: etiology unspecified Qualified Code(s): I35.1 - Nonrheumatic aortic (valve) insufficiency
--- NOTE | 2018-11-01 20:37 | MA ---
cc: Aamir Jones DO DATE: 11/01/2018 PROCEDURE PERFORMED: Left heart catheterization, right heart catheterization, coronary angiogram, moderate sedation 15 minutes, aortic stenosis/mitral stenosis evaluation, ultrasound-guided access. PREPROCEDURE DIAGNOSES: Acute diastolic/systolic heart failure, moderate to severe aortic stenosis by echocardiogram. POSTPROCEDURE DIAGNOSES: Mild coronary artery disease, severe aortic stenosis (mean gradient 42), mild mitral stenosis (mean gradient 4 at a heart rate of 88 beats per minute). MEDICATIONS: Fentanyl 50 mcg, verapamil 2.5 mg, nitro 200 mcg, heparin 4400 units, Versed 0.5 mg. CONTRAST USED: 35 mL. FLUOROSCOPY: 11.1 minutes. MODERATE SEDATION: 15 minutes. FRAILTY SCORE: 2. ESTIMATED BLOOD LOSS: 10 mL. PROCEDURAL SUMMARY: Parker Sanon is a pleasant 73-year-old male who sees my partner, Dr. Granado, in the office and has had a previous echo showing moderate to severe aortic stenosis for which he was asymptomatic and so, he was continued to be treated medically. He was at a meeting the other day and got significantly short of breath and presented to the hospital in acute pulmonary edema. Echocardiogram done here shows an ejection fraction of 40% to 45% with a mean gradient of less than 40 for his aortic stenosis. As I felt that the aortic valve is the cause for his shortness of breath, I recommended a cardiac catheterization with a plan towards aortic valve replacement. Risks, benefits and alternatives were explained to him and he consented as such. He was brought to the lab and prepped in the usual sterile fashion. The right radial artery was accessed using a modified Seldinger technique and placement of a 5/6 Lao slender sheath. I attempted to access the right brachial vein with ultrasound guidance and an angiogram showed a tortuous area which I was unable to manage with a moderate support Whisper wire and so, the dilator was removed. The right femoral vein was accessed using a modified Seldinger technique and ultrasound guidance and placement of a 6 Lao sheath. Both were easily aspirated and flushed. A Grethel-Chelsy catheter was advanced from the femoral vein to a wedge position. At this time, a JR4 was advanced over a J wire to the ascending aorta and across the aortic valve into the left ventricle. Simultaneous pressures of the wedge and LV were recorded showing mild mitral stenosis with a mean gradient of 4 at a heart rate of 88 beats per minute. The Grethel-Chelsy catheter was then pulled back through the heart, recording pressures as well as oxygen saturations in a standard fashion. The Grethel-Chelsy catheter was removed. The JR4 was exchanged out for a Tye dual-lumen catheter and simultaneous LV as well as aortic pressures were taken showing severe aortic stenosis with a mean gradient of 42. The [place] catheter was pulled back across the aortic valve showing equalization of pressures. The Tye catheter was switched out for a JR4, which was used for selective angiography of the right coronary artery system. This is exchanged out for a JL3.5, which was used for selective angiography of the left coronary artery system. The JL3.5 was removed over a J wire. A radial band was placed over the arteriotomy site for hemostasis. As the ACT value was elevated, the femoral sheath was sutured in place with the plan to remove once ACT values were appropriate. The patient left the quality control lab technician cardiovascularly stable. FINDINGS: LEFT MAIN: Normal size vessel with adequate reflux. It bifurcates into an LAD and circumflex. LEFT ANTERIOR DESCENDING: Moderate size vessel with mild luminal irregularities throughout. It gives off 1 small diagonal with no significant disease. LEFT CIRCUMFLEX: Moderate size vessel with no significant disease. It gives off 2 major obtuse marginals with the first one having 30% ostial stenosis. The second one has no significant disease. RIGHT CORONARY ARTERY: Moderate size vessel with a 30% to 40% long tubular lesion in the middle and distally supplying a PDA. HEMODYNAMICS: RA 3. RV 37/2, RVEDP 3. PA 30/16, mean PA 22. Wedge 14. LV 167/6, LVEDP 15. Aortic pressure 120/57. Cardiac output 9.2. Cardiac index 3.9. Aortic valve mean gradient 42, aortic valve area 1.2, aortic valve index 0.5. Mitral valve mean gradient 4.0 at 88 beats per minute. IMPRESSION: 1. Compensated systolic/diastolic heart failure. 2. Mild coronary artery disease by cardiac catheterization. 3. Severe aortic stenosis (mean gradient 42, aortic valve index 0.5). 4. Mild mitral stenosis (mean gradient 4 at 88 beats per minute). RECOMMENDATIONS: 1. Mr. Sanon presented with acute heart failure and pulmonary edema, most likely due to his aortic stenosis. 2. By right heart catheterization numbers, he has been diuresed well and we will switch his diuretic to p.o. He may be intravascularly dry and this will need to be followed to see if he needs further diuresis as he equilibrates. 3. He will be evaluated by CT surgery for further considerations of AVR. I discussed with CT surgery and they will see him in consultation. 4. Further recommendations will be made based on the hospital course. Thank you for allowing me to see Parker Sanon. If there are any questions, please do not hesitate to call. DO Yousif Hensley , 06:12 PM , 06:25 PM
[2018-11-02] MEDS: Insulin NovoLOG Aspart Correctional Sugar Inj SQ SCH ×4 (02:15→17:43)
[2018-11-02 05:04] LABS: Prothrombin Time 10.6 sec (9.8-11.6)
[2018-11-02 05:14] LABS: Baso % (Auto) 0.9 % (0.0-2.0); Eos # (Auto) 0.4 th/mm3 (0.0-0.4); Eos % (Auto) 7.6 % (0.0-4.0); Hematocrit 35.1 % (39.0-51.0); Hemoglobin 12.1 gm/dL (13.0-17.0); Lymph # (Auto) 1.1 th/mm3 (1.0-4.8); Lymph % (Auto) 22.1 % (9.0-44.0); Mean Corpuscular HGB Conc 34.5 % (32.0-36.0); Mean Corpuscular Hemoglobin 32.5 pg (27.0-34.0); Mean Platelet Volume 7.4 fL (7.0-11.0); Mono # (Auto) 0.7 th/mm3 (0.0-0.9); Mono % (Auto) 13.6 % (0.0-8.0); Neut # (Auto) 2.8 th/mm3 (1.8-7.7); Neut % (Auto) 55.8 % (16.0-70.0); Platelet Count 165 th/mm3 (150-450); Red Blood Count 3.74 mil/mm3 (4.50-5.90); Red Cell Distribution Width 13.2 % (11.6-17.2)
[2018-11-02 05:23] LABS: Albumin 2.9 g/dL (3.4-5.0); Anion Gap 8 meq/L (5-15); Aspartate Aminotransferase 19 U/L (15-37); Blood Urea Nitrogen 14 mg/dL (7-18); Calcium 7.7 mg/dL (8.5-10.1); Carbon Dioxide 28.2 meq/L (21.0-32.0); Chloride 93 meq/L (98-107); Glomerular Filtration Rate Greater Than 89 mL/min (>89); Glucose,Random 90 mg/dL (74-106); Potassium 3.4 meq/L (3.5-5.1); Sodium 129 meq/L (136-145)
[2018-11-02 05:26] LABS: Alanine Aminotransferase 17 U/L (12-78); Alkaline Phosphatase 72 U/L (45-117); Total Protein 5.6 g/dL (6.4-8.2)
[2018-11-02] MEDS: Chlorhexidine Gluconate 2% 1 Pack (2 Cloths) TOPICAL SCH (05:40)
[2018-11-02] MEDS: carBAMazepine 200 MG Tablet PO SCH ×2 (08:08→20:41)
[2018-11-02] MEDS: Pantoprazole Inj 40 MG Vial IV.PUSH SCH (08:08)
[2018-11-02] MEDS: Furosemide 40 MG Tablet PO SCH (08:08)
[2018-11-02] MEDS: Senna/Docusate Sodium 8.6/50 MG Tablet PO SCH ×2 (08:09→20:41)
--- NOTE | 2018-11-02 12:07 | P.PNIM ---
Subjective Interval history: No acute distress. Patient had a cardiac cath and echocardiogram. Aortic valve replacement has been recommended. This is scheduled to occur on 11/04/2018. Physical Exam Vital signs: Last Vital Signs Temp 97.7 F 11/02/18 07:00 Pulse 80 11/02/18 11:44 Resp 16 11/02/18 11:44 BP 108/56 L 11/02/18 07:00 Pulse Ox 95 11/02/18 08:00 Intake & Output 10/31/18 11/01/18 11/02/18 11/03/18 06:59 06:59 06:59 06:59 Intake Total 240 / 240 1000 / 1000 910 / 910 Output Total 2710 / 2710 3980 / 3980 900 / 900 Balance -2470 / -2470 -2980 / -2980 Weight 111.3 kg 108.1 kg 110 kg Narrative: GENERAL: NAD, A&Ox3 HEAD: Normocephalic. NECK: Supple, trachea midline. No lymphadenopathy. EYES: No scleral icterus. No injection or drainage. CARDIOVASCULAR: Regular rate and rhythm without murmurs, gallops, or rubs. RESPIRATORY: Breath sounds equal bilaterally. No accessory muscle use. GASTROINTESTINAL: Abdomen soft, non-tender, nondistended. MUSCULOSKELETAL: No cyanosis, or edema. SKIN: Warm and dry. NEURO: No focal neurological deficits. Results Labs CBC & Chem 7: 11/02/18 04:20 11/02/18 03:45 Labs: Microbiology 10/30/18 19:25 Blood - Line Aerobic Blood Culture - Preliminary No growth in 3 days 10/30/18 19:25 Blood - Line Anaerobic Blood Culture - Preliminary No growth in 3 days 10/30/18 19:20 Blood - Line Aerobic Blood Culture - Preliminary No growth in 3 days 10/30/18 19:20 Blood - Line Anaerobic Blood Culture - Preliminary No growth in 3 days Imaging Imaging: Impressions Carotid Doppler Study 11/01/18 14:27 CONCLUSION: 1. Right Internal Carotid Artery: Findings indicate <50% stenosis. 2. Left Internal Carotid Artery: Findings indicate <50% stenosis. Assessment and Plan (1) Acute respiratory distress: Code(s): R06.03 - Acute respiratory distress Status: Acute (2) Pulmonary edema: Code(s): J81.1 - Chronic pulmonary edema Status: Acute (3) Aortic stenosis: Code(s): I35.0 - Nonrheumatic aortic (valve) stenosis Status: Acute (4) Aortic insufficiency: Code(s): I35.1 - Nonrheumatic aortic (valve) insufficiency Status: Acute Plan 73-year-old male admitted secondary to acute pulmonary edema with an elevated troponin level Patient is in no acute distress. He was able to sleep last night without BiPAP. Plan for aortic valve replacement on 11/04/2018. Severe aortic stenosis Likely the cause of symptoms that brought him to the hospital Plan for aortic valve replacement on 11/04/2018 Acute pulmonary edema Acute respiratory Failure Elevated BNP Elevated D-dimer Resolved Etiology may be related to hypertensive crisis versus anaphylaxis versus a myocardial event Plan for heart cath Continue diuretics as needed Elevated troponin Atherosclerotic vascular disease History of carotid artery disease Elevated BNP Systolic CHF Max troponin was 0.65 overnight with AM troponin of 0.51 Heart cath planned If no coronary artery disease is present this could be related to inflammation from anaphylaxis or mild demand ischemia from hypertensive crisis Cardiology following Echocardiogram shows mild systolic CHF Seizure disorder NOS Continue carbamazepine Seizure precautions Hyponatremia Not yet improved Follow clinically Diuresis DVT Prophylaxis SCDs Heparin Progress Note: Quality VTE Deep Vein Thrombosis/Pulmonary Embolism Present on Admission: No _ (1) Pulmonary edema Qualifiers: Chronicity: acute Qualified Code(s): J81.0 - Acute pulmonary edema (2) Aortic stenosis Qualifiers: Cardiac valve disease etiology: etiology unspecified Qualified Code(s): I35.0 - Nonrheumatic aortic (valve) stenosis (3) Aortic insufficiency Qualifiers: Cardiac valve disease etiology: etiology unspecified Qualified Code(s): I35.1 - Nonrheumatic aortic (valve) insufficiency
--- NOTE | 2018-11-02 13:03 | P.PNCA ---
Subjective Interval history: No SOB or angina Medications and Allergies Active Medications: Active Medications Acetaminophen (Tylenol) 650 mg PO Q6H PRN PRN Reason: Fever >101f Hydrocodone Bitart/Acetaminophen ([place] 5/325) 1 tab PO Q4H PRN PRN Reason: PAIN SCALE 1 TO 5 Al Hydroxide/Mg Hydroxide (Milk Of Davina Liq) 30 ml PO Q12H PRN PRN Reason: Mild Constipation Albuterol (Albuterol Neb (Prn)) 2.5 mg NEB Q2HR NEB PRN PRN Reason: SHORTNESS OF BREATH/WHEEZING Albuterol (Duoneb Neb ([facility])) 1 ampul NEB Q4HR NEB [facility] Last Admin: 11/02/18 11:44 Dose: 1 ampul Aspirin (Aspirin Chew) 81 mg PO DAILY [facility] Last Admin: 11/02/18 08:08 Dose: 81 mg Atorvastatin Calcium (Lipitor) 40 mg PO HS [facility] Last Admin: 11/01/18 21:06 Dose: 40 mg Bisacodyl (Dulcolax Supp) 10 mg RECTAL DAILY PRN PRN Reason: SEVERE CONSITIPATION Carbamazepine (Tegretol) 600 mg PO BID [facility] Last Admin: 11/02/18 08:08 Dose: 600 mg Chlorhexidine Gluconate (Chlorhexidine 2% Cloth) 3 pack TOPICAL DAILY@0400 PRN PRN Reason: Extra cloth needed Stop: 11/05/18 03:59 Chlorhexidine Gluconate (Chlorhexidine 2% Cloth) 3 pack TOPICAL DAILY@0400 [facility] Stop: 11/05/18 03:59 Last Admin: 11/02/18 05:40 Dose: Not Given Chlorhexidine Gluconate (Hibiclens 4% Topical) 1 applicatio [employer]ICAL [employer] [facility] Stop: 11/07/18 14:27 Sodium Chloride 500 ml/ (Cefazolin Sodium 500 mg) 0 ml IRRIGATION [employer] [facility] Stop: 11/07/18 14:29 Dextrose (D50w Vial) 50 ml IV.PUSH UNSCH PRN PRN Reason: PER HYPOGLYCEMIA PROTOCOL Dextrose (D50w Vial) 50 ml IV.PUSH UNSCH PRN PRN Reason: PER HYPOGLYCEMIA PROTOCOL Furosemide (Lasix) 40 mg PO DAILY [facility] Last Admin: 11/02/18 08:08 Dose: 40 mg Glucagon (Glucagon Inj) 1 mg OTHER PRN PRN PRN Reason: for Hypoglycemia Protocol Hydralazine HCl (Apresoline Inj) 10 mg IV.PUSH Q1H PRN PRN Reason: SYS BP GREATER THAN 170 MMHG Magnesium Sulfate 4 gm/ Sodium (Chloride) 100 mls @ 50 mls/hr IV.SIG UNSCH PRN PRN Reason: For Magnesium 0.9 - 1.1 mg/dL Magnesium Sulfate 2 gm/ Sodium (Chloride) 100 mls @ 50 mls/hr IV.SIG UNSCH PRN PRN Reason: For Magnesium 1.2 - 1.6 mg/dL Potassium Chloride (Kcl 40 Meq Premix Inj) 40 meq in 100 mls @ 25 mls/hr IV.SIG Q2H PRN PRN Reason: For Potassium 2.8 - 3.2 mEq/L Potassium Chloride (Kcl 20 Meq Premix Inj) 20 meq in 100 mls @ 50 mls/hr IV.SIG Q2H PRN PRN Reason: For Potassium 3.3 - 3.5 mEq/L Potassium Chloride (Kcl 20 Meq Premix Inj) 20 meq in 100 mls @ 50 mls/hr IV.SIG Q2H PRN PRN Reason: For Potassium 2.8 - 3.2 mEq/L Last Infusion: 11/01/18 21:04 Dose: Infused Potassium Phosphate 30 mmol/ (Sodium Chloride) 260 mls @ 42 mls/hr IV.SIG UNSCH PRN PRN Reason: SEE LABEL COMMENTS Sodium Phosphate 30 mmol/ (Sodium Chloride) 260 mls @ 42 mls/hr IV.SIG UNSCH PRN PRN Reason: For Phosphorus < 2.5 mg/dL Potassium Chloride (Kcl 40 Meq Premix Inj) 40 meq in 100 mls @ 25 mls/hr IV.SIG UNSCH PRN PRN Reason: For Potassium 3.3 - 3.5 mEq/L Insulin Human Regular 100 unit (/ Sodium Chloride) 100 mls @ 3 mls/hr IV.CONT TITRATE PRN; Protocol PRN Reason: See Protocol Cefazolin Sodium/Dextrose (Ancef 2 Gm Premix Inj) 2 gm in 50 mls @ 100 mls/hr IV.SIG [employer] [facility] Stop: 11/07/18 14:59 Insulin Aspart (Novolog Insulin Correctional Sugar Inj) 0 unit SQ Q6HR [facility]; Protocol Last Admin: 11/02/18 11:29 Dose: Not Given Isosorbide Dinitrate (Isordil) 10 mg PO Q8HR [facility] Last Admin: 11/02/18 06:07 Dose: 10 mg Labetalol HCl (Trandate Inj) 10 mg IV.PUSH Q1H PRN PRN Reason: Sbp>165, Dbp>90, Hr>65 Lactulose (Lactulose Liq) 30 ml PO DAILY PRN PRN Reason: SEVERE CONSITIPATION Magnesium Oxide (Mag-Ox) 800 mg PO UNSCH PRN PRN Reason: For Magnesium 1.2 - 1.6 mg/dL Metoprolol Tartrate (Lopressor) 12.5 mg PO [employer] [facility] Stop: 11/07/18 14:29 Morphine Sulfate (Morphine Inj) 2 mg IV.PUSH Q2H PRN PRN Reason: PAIN SCALE 6 TO 10 Ondansetron HCl (Zofran Inj) 4 mg IV.PUSH Q6H PRN PRN Reason: NAUSEA OR VOMITING Pantoprazole Sodium (Protonix Inj) 40 mg IV.PUSH DAILY [facility] Last Admin: 11/02/18 08:08 Dose: 40 mg Potassium Bicarb/Potassium Chloride (K-Lyte Cl Eff) 50 meq PO UNSCH PRN PRN Reason: For Potassium 3.3 - 3.5 mEq/L Potassium Chloride (K-Dur) 20 meq PO BID [facility] Potassium Phosphate (K-Phos Original) 2,000 mg PO Q4H PRN PRN Reason: Phosphorus Less Than 2.5 mg/dL Potassium Phosphate (K-Phos Original) 2,000 mg PO UNSCH PRN PRN Reason: SEE LABEL COMMENTS Senna/Docusate Sodium (Sinai-Colace) 1 tab PO BID [facility] Last Admin: 11/02/18 08:09 Dose: 1 tab Sennosides (Senokot) 17.2 mg PO Q12H PRN PRN Reason: Moderate Constipation Sodium Chloride (Ns Flush) 2 ml IV.FLUSH BID [facility] Last Admin: 11/02/18 08:09 Dose: 2 ml Sodium Chloride (Ns Flush) 2 ml IV.FLUSH PRN PRN PRN Reason: FLUSH AFTER USING IV ACCESS Sodium Chloride (Ns Flush) 2 ml IV.FLUSH BID [facility] Last Admin: 11/02/18 08:09 Dose: Not Given Sodium Chloride (Ns Flush) 2 ml IV.FLUSH PRN PRN PRN Reason: FLUSH AFTER USING IV ACCESS Allergies Allergy/AdvReac Type Severity Reaction Status Date / Time No Known Allergies Allergy Verified 10/30/18 18:40 Home Medications Medication Instructions Recorded Confirmed Type Unable to Obtain Home Meds 10/30/18 10/30/18 History Physical Exam Vital signs: Vital Signs 11/01/18 14:00 11/01/18 15:00 11/01/18 15:54 Temperature Pulse Rate 92 H 91 H 90 Respiratory Rate 16 Blood Pressure 118/64 105/57 L Pulse Oximetry 94 L 94 L 11/01/18 16:00 11/01/18 16:30 11/01/18 19:00 Temperature 98.3 F Pulse Rate 94 H 94 H 80 Respiratory Rate 18 Blood Pressure 115/59 L 115/59 L 112/55 L Pulse Oximetry 94 L 94 L 97 11/01/18 20:00 11/01/18 20:09 11/01/18 21:00 Temperature Pulse Rate 78 78 Respiratory Rate Blood Pressure Pulse Oximetry 97 97 11/01/18 22:00 11/01/18 23:00 11/02/18 00:00 Temperature 99.7 F H Pulse Rate 80 95 H 80 Respiratory Rate 20 Blood Pressure 121/57 L Pulse Oximetry 96 11/02/18 01:00 11/02/18 02:00 11/02/18 03:00 Temperature 98.2 F Pulse Rate 80 75 79 Respiratory Rate 16 Blood Pressure 113/56 L Pulse Oximetry 95 11/02/18 04:00 11/02/18 05:00 11/02/18 06:00 Temperature Pulse Rate 80 78 82 Respiratory Rate Blood Pressure Pulse Oximetry 11/02/18 07:00 11/02/18 07:46 11/02/18 08:00 Temperature 97.7 F Pulse Rate 71 74 72 Respiratory Rate 18 16 Blood Pressure 108/56 L Pulse Oximetry 95 99 95 11/02/18 09:00 11/02/18 10:00 11/02/18 11:00 Temperature 98.5 F Pulse Rate 90 84 96 H Respiratory Rate 18 Blood Pressure 122/58 L Pulse Oximetry 98 11/02/18 11:44 11/02/18 12:00 Temperature Pulse Rate 80 84 Respiratory Rate 16 Blood Pressure Pulse Oximetry Intake & Output 11/01/18 11/02/18 11/02/18 18:59 06:59 18:59 Intake Total 810 / 810 100 / 100 Output Total 900 / 900 Balance 810 / 810 -800 / -800 Weight 110 kg Intake: IV 310 / 310 100 / 100 Heparin/NS PF Inj 1,000 ML @ 0 10 / 10 mls/hr .ROUTE .[employer] Rx#: [id number] KCl 20 mEq Premix Inj 20 meq In 300 / 300 100 / 100 100 ml @ 50 mls/hr IV.SIG Q2H PRN Rx#:[id number] Anesthesia Amount 500 / 500 Output: Urine 900 / 900 Other: # Voids 2 Date of Last Bowel Movement 10/29/18 10/29/18 10/29/18 Narrative: GENERAL: NAD, A&Ox3 HEAD: Normocephalic. NECK: Supple, trachea midline. No lymphadenopathy. EYES: No scleral icterus. No injection or drainage. CARDIOVASCULAR: nl S1, Soft S2, Severe murmur RESPIRATORY: Breath sounds equal bilaterally. No accessory muscle use. GASTROINTESTINAL: Abdomen soft, non-tender, nondistended. MUSCULOSKELETAL: No cyanosis, or edema. SKIN: Warm and dry. NEURO: No focal neurological deficits. Results 11/02/18 04:20 11/02/18 03:45 Cardiac Enzymes 11/01/18 11/02/18 Range/Units 03:50 03:45 AST 19 (15-37) U/L B-Natriuretic Peptide 459 H (0-100) pg/mL Coagulation 11/01/18 11/02/18 Range/Units 03:50 04:20 PT 10.6 (9.8-11.6) sec B-Natriuretic Peptide 459 H (0-100) pg/mL CBC 11/01/18 11/02/18 Range/Units 03:50 04:20 WBC 5.7 5.0 (4.0-11.0) th/mm3 RBC 3.89 L 3.74 L (4.50-5.90) mil/mm3 Hgb 12.6 L 12.1 L (13.0-17.0) gm/dL Hct 35.8 L 35.1 L (39.0-51.0) % Plt Count 175 165 (150-450) th/mm3 Neut # (Auto) 3.3 2.8 (1.8-7.7) th/mm3 Lymph # (Auto) 1.3 1.1 (1.0-4.8) th/mm3 [place] # (Auto) 0.8 0.7 (0.0-0.9) th/mm3 Eos # (Auto) 0.3 0.4 (0.0-0.4) th/mm3 Baso # (Auto) 0.1 0.0 (0.0-0.2) th/mm3 Comprehensive Metabolic Panel 11/01/18 11/02/18 Range/Units 03:50 03:45 Sodium 128 L 129 L (136-145) meq/L Potassium 3.2 L D 3.4 L (3.5-5.1) meq/L Chloride 88 L 93 L (98-107) meq/L Carbon Dioxide 29.9 28.2 (21.0-32.0) meq/L BUN 19 H 14 (7-18) mg/dL Creatinine 0.88 0.76 (0.60-1.30) mg/dL Calcium 7.5 L 7.7 L (8.5-10.1) mg/dL AST 19 (15-37) U/L ALT 17 (12-78) U/L Alkaline Phosphatase 72 (45-117) U/L Total Protein 5.6 L (6.4-8.2) g/dL Albumin 2.9 L (3.4-5.0) g/dL Intake and Output 11/01/18 11/02/18 11/02/18 22:59 06:59 14:59 Intake Total 200 / 200 Output Total 600 / 600 300 / 300 Balance -400 / -400 -300 / -300 Intake: IV 200 / 200 KCl 20 mEq Premix Inj 20 meq In 200 / 200 100 ml @ 50 mls/hr IV.SIG Q2H PRN Rx#:[id number] Output: Urine 600 / 600 300 / 300 Other: # Voids 2 Date of Last Bowel Movement 10/29/18 10/29/18 10/29/18 Weight 110 kg - Imaging and Cardiology Imaging: Impressions Chest X-Ray 11/01/18 04:00 CONCLUSION: Patchy basilar airspace disease. Carotid Doppler Study 11/01/18 14:27 CONCLUSION: 1. Right Internal Carotid Artery: Findings indicate <50% stenosis. 2. Left Internal Carotid Artery: Findings indicate <50% stenosis. Assessment and Plan - Assessment (1) Acute respiratory distress Code(s): R06.03 - Acute respiratory distress Status: Acute (2) Pulmonary edema Code(s): J81.1 - Chronic pulmonary edema Status: Acute (3) Aortic stenosis Code(s): I35.0 - Nonrheumatic aortic (valve) stenosis Status: Acute (4) Aortic insufficiency Code(s): I35.1 - Nonrheumatic aortic (valve) insufficiency Status: Acute (5) Hypokalemia Code(s): E87.6 - Hypokalemia Status: Acute - Plan 11/01/2018 1) Acute respiratory distress/pulmonary edema/acute heart failure Due to severe EF 40-45% 2) Severe by cath Mean gradient 42mmHg 3) Mild MS by cath Mean gradient 4mmHG at a heart rate of 88 bpm 4) Diuresed well from RHC numbers May be intravascularly dry after 5.5L diuresed off Will change Lasix to PO for now and reassess CHF status 5) Discussed with him and his about results and need for AVR Discussed with CT surgery, will see in consultation 6) If concerns over the weekend, Dr. Stockton will be covering 11/02/2018: Looks stable but K+ low, KCL 20meq bid. Check Lab in AM (2) Pulmonary edema Qualifiers: Chronicity: acute Qualified Code(s): J81.0 - Acute pulmonary edema (3) Aortic stenosis Qualifiers: Cardiac valve disease etiology: etiology unspecified Qualified Code(s): I35.0 - Nonrheumatic aortic (valve) stenosis (4) Aortic insufficiency Qualifiers: Cardiac valve disease etiology: etiology unspecified Qualified Code(s): I35.1 - Nonrheumatic aortic (valve) insufficiency
[2018-11-03] MEDS: Chlorhexidine Gluconate 2% 1 Pack (2 Cloths) TOPICAL SCH (04:11)
[2018-11-03 05:32] LABS: Alanine Aminotransferase 19 U/L (12-78); Albumin 3.2 g/dL (3.4-5.0); Anion Gap 8 meq/L (5-15); Aspartate Aminotransferase 19 U/L (15-37); Blood Urea Nitrogen 18 mg/dL (7-18); Calcium 7.9 mg/dL (8.5-10.1); Carbon Dioxide 26.3 meq/L (21.0-32.0); Chloride 94 meq/L (98-107); Glomerular Filtration Rate 84 mL/min (>89); Glucose,Random 93 mg/dL (74-106); Magnesium 1.9 mg/dL (1.5-2.5); Sodium 128 meq/L (136-145)
[2018-11-03 05:35] LABS: Alkaline Phosphatase 73 U/L (45-117); Total Protein 5.8 g/dL (6.4-8.2)
[2018-11-03] MEDS: Pantoprazole Inj 40 MG Vial IV.PUSH SCH (08:13)
[2018-11-03] MEDS: carBAMazepine 200 MG Tablet PO SCH ×2 (08:13→21:29)
[2018-11-03] MEDS: Senna/Docusate Sodium 8.6/50 MG Tablet PO SCH ×2 (08:13→21:29)
[2018-11-03] MEDS: Furosemide 40 MG Tablet PO SCH (08:14)
[2018-11-03] MEDS: Insulin NovoLOG Aspart Correctional Sugar Inj SQ SCH ×4 (08:15→17:59)
--- NOTE | 2018-11-03 10:07 | P.PNCA ---
Subjective Interval history: While in bed he dropped his phone on the floor. In the process of getting OOB to retrieve it he had chest pain and SOB for 20', better now Medications and Allergies Active Medications: Active Medications Acetaminophen (Tylenol) 650 mg PO Q6H PRN PRN Reason: Fever >101f Hydrocodone Bitart/Acetaminophen ([place] 5/325) 1 tab PO Q4H PRN PRN Reason: PAIN SCALE 1 TO 5 Al Hydroxide/Mg Hydroxide (Milk Of Davina Liq) 30 ml PO Q12H PRN PRN Reason: Mild Constipation Albuterol (Albuterol Neb (Prn)) 2.5 mg NEB Q2HR NEB PRN PRN Reason: SHORTNESS OF BREATH/WHEEZING Albuterol (Duoneb Neb ([facility])) 1 ampul NEB Q4HR NEB [facility] Last Admin: 11/03/18 08:49 Dose: 1 ampul Aspirin (Aspirin Chew) 81 mg PO DAILY [facility] Last Admin: 11/03/18 08:13 Dose: 81 mg Atorvastatin Calcium (Lipitor) 40 mg PO HS [facility] Last Admin: 11/02/18 20:41 Dose: 40 mg Bisacodyl (Dulcolax Supp) 10 mg RECTAL DAILY PRN PRN Reason: SEVERE CONSITIPATION Carbamazepine (Tegretol) 600 mg PO BID [facility] Last Admin: 11/03/18 08:13 Dose: 600 mg Chlorhexidine Gluconate (Chlorhexidine 2% Cloth) 3 pack TOPICAL DAILY@0400 PRN PRN Reason: Extra cloth needed Stop: 11/05/18 03:59 Chlorhexidine Gluconate (Chlorhexidine 2% Cloth) 3 pack TOPICAL DAILY@0400 [facility] Stop: 11/05/18 03:59 Last Admin: 11/03/18 04:11 Dose: Not Given Chlorhexidine Gluconate (Hibiclens 4% Topical) 1 applicatio TOPICAL [employer] [facility] Stop: 11/07/18 14:27 Sodium Chloride 500 ml/ (Cefazolin Sodium 500 mg) 0 ml IRRIGATION [employer] [facility] Stop: 11/07/18 14:29 Dextrose (D50w Vial) 50 ml IV.PUSH UNSCH PRN PRN Reason: PER HYPOGLYCEMIA PROTOCOL Dextrose (D50w Vial) 50 ml IV.PUSH UNSCH PRN PRN Reason: PER HYPOGLYCEMIA PROTOCOL Furosemide (Lasix) 40 mg PO DAILY [facility] Last Admin: 11/03/18 08:14 Dose: 40 mg Glucagon (Glucagon Inj) 1 mg OTHER PRN PRN PRN Reason: for Hypoglycemia Protocol Hydralazine HCl (Apresoline Inj) 10 mg IV.PUSH Q1H PRN PRN Reason: SYS BP GREATER THAN 170 MMHG Magnesium Sulfate 4 gm/ Sodium (Chloride) 100 mls @ 50 mls/hr IV.SIG UNSCH PRN PRN Reason: For Magnesium 0.9 - 1.1 mg/dL Magnesium Sulfate 2 gm/ Sodium (Chloride) 100 mls @ 50 mls/hr IV.SIG UNSCH PRN PRN Reason: For Magnesium 1.2 - 1.6 mg/dL Potassium Chloride (Kcl 40 Meq Premix Inj) 40 meq in 100 mls @ 25 mls/hr IV.SIG Q2H PRN PRN Reason: For Potassium 2.8 - 3.2 mEq/L Potassium Chloride (Kcl 20 Meq Premix Inj) 20 meq in 100 mls @ 50 mls/hr IV.SIG Q2H PRN PRN Reason: For Potassium 3.3 - 3.5 mEq/L Potassium Chloride (Kcl 20 Meq Premix Inj) 20 meq in 100 mls @ 50 mls/hr IV.SIG Q2H PRN PRN Reason: For Potassium 2.8 - 3.2 mEq/L Last Infusion: 11/01/18 21:04 Dose: Infused Potassium Phosphate 30 mmol/ (Sodium Chloride) 260 mls @ 42 mls/hr IV.SIG UNSCH PRN PRN Reason: SEE LABEL COMMENTS Sodium Phosphate 30 mmol/ (Sodium Chloride) 260 mls @ 42 mls/hr IV.SIG UNSCH PRN PRN Reason: For Phosphorus < 2.5 mg/dL Potassium Chloride (Kcl 40 Meq Premix Inj) 40 meq in 100 mls @ 25 mls/hr IV.SIG UNSCH PRN PRN Reason: For Potassium 3.3 - 3.5 mEq/L Insulin Human Regular 100 unit (/ Sodium Chloride) 100 mls @ 3 mls/hr IV.CONT TITRATE PRN; Protocol PRN Reason: See Protocol Cefazolin Sodium/Dextrose (Ancef 2 Gm Premix Inj) 2 gm in 50 mls @ 100 mls/hr IV.SIG [employer] [facility] Stop: 11/07/18 14:59 Insulin Aspart (Novolog Insulin Correctional Sugar Inj) 0 unit SQ Q6HR [facility]; Protocol Last Admin: 11/03/18 08:15 Dose: Not Given Isosorbide Dinitrate (Isordil) 10 mg PO Q8HR [facility] Last Admin: 11/03/18 06:01 Dose: 10 mg Labetalol HCl (Trandate Inj) 10 mg IV.PUSH Q1H PRN PRN Reason: Sbp>165, Dbp>90, Hr>65 Lactulose (Lactulose Liq) 30 ml PO DAILY PRN PRN Reason: SEVERE CONSITIPATION Magnesium Oxide (Mag-Ox) 800 mg PO UNSCH PRN PRN Reason: For Magnesium 1.2 - 1.6 mg/dL Metoprolol Tartrate (Lopressor) 12.5 mg PO [employer] [facility] Stop: 11/07/18 14:29 Morphine Sulfate (Morphine Inj) 2 mg IV.PUSH Q2H PRN PRN Reason: PAIN SCALE 6 TO 10 Ondansetron HCl (Zofran Inj) 4 mg IV.PUSH Q6H PRN PRN Reason: NAUSEA OR VOMITING Pantoprazole Sodium (Protonix Inj) 40 mg IV.PUSH DAILY [facility] Last Admin: 11/03/18 08:13 Dose: 40 mg Potassium Bicarb/Potassium Chloride (K-Lyte Cl Eff) 50 meq PO UNSCH PRN PRN Reason: For Potassium 3.3 - 3.5 mEq/L Potassium Chloride (K-Dur) 20 meq PO BID [facility] Last Admin: 11/03/18 08:13 Dose: 20 meq Potassium Phosphate (K-Phos Original) 2,000 mg PO Q4H PRN PRN Reason: Phosphorus Less Than 2.5 mg/dL Potassium Phosphate (K-Phos Original) 2,000 mg PO UNSCH PRN PRN Reason: SEE LABEL COMMENTS Senna/Docusate Sodium (Sinai-Colace) 1 tab PO BID [facility] Last Admin: 11/03/18 08:13 Dose: 1 tab Sennosides (Senokot) 17.2 mg PO Q12H PRN PRN Reason: Moderate Constipation Sodium Chloride (Ns Flush) 2 ml IV.FLUSH BID [facility] Last Admin: 11/03/18 08:14 Dose: 2 ml Sodium Chloride (Ns Flush) 2 ml IV.FLUSH PRN PRN PRN Reason: FLUSH AFTER USING IV ACCESS Sodium Chloride (Ns Flush) 2 ml IV.FLUSH BID [facility] Last Admin: 11/03/18 08:14 Dose: Not Given Sodium Chloride (Ns Flush) 2 ml IV.FLUSH PRN PRN PRN Reason: FLUSH AFTER USING IV ACCESS Allergies Allergy/AdvReac Type Severity Reaction Status Date / Time No Known Allergies Allergy Verified 10/30/18 18:40 Home Medications Medication Instructions Recorded Confirmed Type Unable to Obtain Home Meds 10/30/18 10/30/18 History Physical Exam Vital signs: Vital Signs 11/02/18 11:00 11/02/18 11:44 11/02/18 12:00 Temperature 98.5 F Pulse Rate 96 H 80 84 Respiratory Rate 18 16 Blood Pressure 122/58 L Pulse Oximetry 98 11/02/18 13:00 11/02/18 14:00 11/02/18 15:00 Temperature 98.4 F Pulse Rate 80 82 83 Respiratory Rate 18 Blood Pressure 122/59 L Pulse Oximetry 100 11/02/18 15:16 11/02/18 15:17 11/02/18 16:00 Temperature Pulse Rate 84 86 Respiratory Rate 16 Blood Pressure Pulse Oximetry 98 11/02/18 17:00 11/02/18 18:00 11/02/18 19:00 Temperature Pulse Rate 84 84 79 Respiratory Rate Blood Pressure Pulse Oximetry 11/02/18 19:21 11/02/18 19:35 11/02/18 20:00 Temperature 98.8 F Pulse Rate 82 79 75 Respiratory Rate 18 19 Blood Pressure 108/55 L Pulse Oximetry 93 L 93 L 11/02/18 21:00 11/02/18 22:00 11/02/18 23:00 Temperature Pulse Rate 83 81 84 Respiratory Rate Blood Pressure Pulse Oximetry 11/02/18 23:24 11/02/18 23:45 11/03/18 00:00 Temperature 98.8 F Pulse Rate 81 79 84 Respiratory Rate 16 17 Blood Pressure 91/54 L Pulse Oximetry 94 L 11/03/18 01:00 11/03/18 02:00 11/03/18 03:00 Temperature Pulse Rate 96 H 92 H 90 Respiratory Rate Blood Pressure Pulse Oximetry 11/03/18 03:36 11/03/18 03:53 11/03/18 04:00 Temperature 98.4 F Pulse Rate 90 84 90 Respiratory Rate 17 16 Blood Pressure 112/57 L Pulse Oximetry 94 L 11/03/18 05:00 11/03/18 06:00 11/03/18 07:00 Temperature 99.1 F Pulse Rate 92 H 89 89 Respiratory Rate 17 Blood Pressure 114/55 L Pulse Oximetry 97 11/03/18 08:00 11/03/18 08:50 Temperature Pulse Rate 81 Respiratory Rate 16 Blood Pressure Pulse Oximetry 97 97 Intake & Output 11/02/18 11/03/18 11/03/18 18:59 06:59 18:59 Intake Total 1080 / 1080 420 / 420 Output Total 625 / 625 1200 / 1200 Balance 455 / 455 -780 / -780 Weight 109 kg Intake: Oral 1080 / 1080 420 / 420 Output: Urine 625 / 625 1200 / 1200 Other: # Voids 2 Date of Last Bowel Movement 10/29/18 10/29/18 Narrative: GENERAL: NAD, A&Ox3 HEAD: Normocephalic. NECK: Supple, trachea midline. No lymphadenopathy. EYES: No scleral icterus. No injection or drainage. CARDIOVASCULAR: nl S1, Soft S2, Severe murmur RESPIRATORY: Breath sounds equal bilaterally. No accessory muscle use. Slight crackles at bases GASTROINTESTINAL: Abdomen soft, non-tender, nondistended. MUSCULOSKELETAL: No cyanosis, or edema. SKIN: Warm and dry. NEURO: No focal neurological deficits. Results 11/02/18 04:20 11/03/18 04:20 Cardiac Enzymes 11/02/18 11/03/18 Range/Units 03:45 04:20 AST 19 19 (15-37) U/L Coagulation 11/02/18 Range/Units 04:20 PT 10.6 (9.8-11.6) sec CBC 11/02/18 Range/Units 04:20 WBC 5.0 (4.0-11.0) th/mm3 RBC 3.74 L (4.50-5.90) mil/mm3 Hgb 12.1 L (13.0-17.0) gm/dL Hct 35.1 L (39.0-51.0) % Plt Count 165 (150-450) th/mm3 Neut # (Auto) 2.8 (1.8-7.7) th/mm3 Lymph # (Auto) 1.1 (1.0-4.8) th/mm3 [place] # (Auto) 0.7 (0.0-0.9) th/mm3 Eos # (Auto) 0.4 (0.0-0.4) th/mm3 Baso # (Auto) 0.0 (0.0-0.2) th/mm3 Comprehensive Metabolic Panel 11/02/18 11/03/18 Range/Units 03:45 04:20 Sodium 129 L 128 L (136-145) meq/L Potassium 3.4 L 4.0 (3.5-5.1) meq/L Chloride 93 L 94 L (98-107) meq/L Carbon Dioxide 28.2 26.3 (21.0-32.0) meq/L BUN 14 18 (7-18) mg/dL Creatinine 0.76 0.89 (0.60-1.30) mg/dL Calcium 7.7 L 7.9 L (8.5-10.1) mg/dL AST 19 19 (15-37) U/L ALT 17 19 (12-78) U/L Alkaline Phosphatase 72 73 (45-117) U/L Total Protein 5.6 L 5.8 L (6.4-8.2) g/dL Albumin 2.9 L 3.2 L (3.4-5.0) g/dL Intake and Output 11/02/18 11/03/18 11/03/18 22:59 06:59 14:59 Intake Total 1080 / 1080 420 / 420 Output Total 625 / 625 1200 / 1200 Balance 455 / 455 -780 / -780 Intake: Oral 1080 / 1080 420 / 420 Output: Urine 625 / 625 1200 / 1200 Other: # Voids 2 Date of Last Bowel Movement 10/29/18 10/29/18 Weight 109 kg - Imaging and Cardiology Imaging: Impressions Carotid Doppler Study 11/01/18 14:27 CONCLUSION: 1. Right Internal Carotid Artery: Findings indicate <50% stenosis. 2. Left Internal Carotid Artery: Findings indicate <50% stenosis. Assessment and Plan - Assessment (1) Acute respiratory distress Code(s): R06.03 - Acute respiratory distress Status: Acute (2) Pulmonary edema Code(s): J81.1 - Chronic pulmonary edema Status: Acute (3) Aortic stenosis Code(s): I35.0 - Nonrheumatic aortic (valve) stenosis Status: Acute (4) Aortic insufficiency Code(s): I35.1 - Nonrheumatic aortic (valve) insufficiency Status: Acute (5) Hypokalemia Code(s): E87.6 - Hypokalemia Status: Acute Plan: repleted - Plan 11/01/2018 1) Acute respiratory distress/pulmonary edema/acute heart failure Due to severe EF 40-45% 2) Severe by cath Mean gradient 42mmHg 3) Mild MS by cath Mean gradient 4mmHG at a heart rate of 88 bpm 4) Diuresed well from RHC numbers May be intravascularly dry after 5.5L diuresed off Will change Lasix to PO for now and reassess CHF status 5) Discussed with him and his about results and need for AVR Discussed with CT surgery, will see in consultation 6) If concerns over the weekend, Dr. Stockton will be covering 11/02/2018: Looks stable but K+ low, KCL 20meq bid. Check Lab in AM 11/03/2018: S/p angina/SOB episode. AVR tomorrow. (2) Pulmonary edema Qualifiers: Chronicity: acute Qualified Code(s): J81.0 - Acute pulmonary edema (3) Aortic stenosis Qualifiers: Cardiac valve disease etiology: etiology unspecified Qualified Code(s): I35.0 - Nonrheumatic aortic (valve) stenosis (4) Aortic insufficiency Qualifiers: Cardiac valve disease etiology: etiology unspecified Qualified Code(s): I35.1 - Nonrheumatic aortic (valve) insufficiency
[2018-11-03 12:02] LABS: Hemoglobin A1c 4.7 % (4.3-6.0)
--- NOTE | 2018-11-03 12:04 | P.PNCV ---
- Note Subjective/Hospital Course: No complaints presently. Discussed AVR surgery with him and family, addressed their questions. Objective: Vital Signs - 24 hr 11/02/18 13:00 11/02/18 14:00 11/02/18 15:00 Temperature 98.4 F Pulse Rate 80 82 83 Respiratory Rate 18 Blood Pressure 122/59 L Pulse Oximetry 100 11/02/18 15:16 11/02/18 15:17 11/02/18 16:00 Temperature Pulse Rate 84 86 Respiratory Rate 16 Blood Pressure Pulse Oximetry 98 11/02/18 17:00 11/02/18 18:00 11/02/18 19:00 Temperature Pulse Rate 84 84 79 Respiratory Rate Blood Pressure Pulse Oximetry 11/02/18 19:21 11/02/18 19:35 11/02/18 20:00 Temperature 98.8 F Pulse Rate 82 79 75 Respiratory Rate 18 19 Blood Pressure 108/55 L Pulse Oximetry 93 L 93 L 11/02/18 21:00 11/02/18 22:00 11/02/18 23:00 Temperature Pulse Rate 83 81 84 Respiratory Rate Blood Pressure Pulse Oximetry 11/02/18 23:24 11/02/18 23:45 11/03/18 00:00 Temperature 98.8 F Pulse Rate 81 79 84 Respiratory Rate 16 17 Blood Pressure 91/54 L Pulse Oximetry 94 L 11/03/18 01:00 11/03/18 02:00 11/03/18 03:00 Temperature Pulse Rate 96 H 92 H 90 Respiratory Rate Blood Pressure Pulse Oximetry 11/03/18 03:36 11/03/18 03:53 11/03/18 04:00 Temperature 98.4 F Pulse Rate 90 84 90 Respiratory Rate 17 16 Blood Pressure 112/57 L Pulse Oximetry 94 L 11/03/18 05:00 11/03/18 06:00 11/03/18 07:00 Temperature 99.1 F Pulse Rate 92 H 89 89 Respiratory Rate 18 Blood Pressure 114/55 L Pulse Oximetry 97 11/03/18 08:00 11/03/18 08:50 11/03/18 09:00 Temperature Pulse Rate 84 81 80 Respiratory Rate 16 Blood Pressure Pulse Oximetry 97 97 11/03/18 10:00 11/03/18 11:00 Temperature 98.4 F Pulse Rate 86 84 Respiratory Rate 18 Blood Pressure 107/55 L Pulse Oximetry 97 Labs: Laboratory Results - last hr 11/03/18 11/03/18 11/03/18 04:20 04:20 11:50 Sodium 128 L Potassium 4.0 Chloride 94 L Carbon Dioxide 26.3 Anion Gap 8 BUN 18 Creatinine 0.89 Estimated GFR 84 L POC Glucose 119 H Random Glucose 93 Calcium 7.9 L Magnesium 1.9 Total Bilirubin 0.6 AST 19 ALT 19 Alkaline Phosphatase 73 Total Protein 5.8 L Albumin 3.2 L Blood Type O Positive Blood Type Recheck Required Antibody Screen Negative MTS Gel Crossmatch See Detail Result Diagrams: 11/02/18 04:20 11/03/18 04:20 Imaging: Chest CTA 10/30/18 19:34 CONCLUSION: 1. Bilateral alveolar opacities again noted most characteristic of pulmonary edema. 2. Small to moderate bilateral pleural effusions. 3. No evidence of pulmonary emboli. 4. Coronary artery calcifications. Venous Doppler Study 10/31/18 00:00 CONCLUSION: No venous thrombosis is identified within either lower extremity. Chest X-Ray 11/01/18 04:00 CONCLUSION: Patchy basilar airspace disease. Carotid Doppler Study 11/01/18 14:27 CONCLUSION: 1. Right Internal Carotid Artery: Findings indicate <50% stenosis. 2. Left Internal Carotid Artery: Findings indicate <50% stenosis. 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 (1) Aortic stenosis Qualifiers: Cardiac valve disease etiology: etiology unspecified Qualified Code(s): I35.0 - Nonrheumatic aortic (valve) stenosis (2) Aortic insufficiency Qualifiers: Cardiac valve disease etiology: etiology unspecified Qualified Code(s): I35.1 - Nonrheumatic aortic (valve) insufficiency (3) Combined systolic and diastolic congestive heart failure Qualifiers: Heart failure chronicity: acute on chronic Qualified Code(s): I50.43 - Acute on chronic combined systolic (congestive) and diastolic (congestive) heart failure (4) Pulmonary edema Qualifiers: Chronicity: acute Qualified Code(s): J81.0 - Acute pulmonary edema
--- NOTE | 2018-11-03 12:16 | P.PNIM ---
Subjective Interval history: Patient had some respiratory distress last night when he got out of bed to pick something up on the floor. No other complaints. No chest pain. Physical Exam Vital signs: Last Vital Signs Temp 98.4 F 11/03/18 11:00 Pulse 84 11/03/18 11:00 Resp 18 11/03/18 11:00 BP 107/55 L 11/03/18 11:00 Pulse Ox 97 11/03/18 11:00 Intake & Output 11/01/18 11/02/18 11/03/18 11/04/18 06:59 06:59 06:59 06:59 Intake Total 1000 / 1000 910 / 910 1500 / 1500 Output Total 3980 / 3980 900 / 900 1825 / 1825 Balance -2980 / -2980 -325 / -325 Weight 108.1 kg 110 kg 109 kg Narrative: GENERAL: NAD, A&Ox3 HEAD: Normocephalic. NECK: Supple, trachea midline. No lymphadenopathy. EYES: No scleral icterus. No injection or drainage. CARDIOVASCULAR: Regular rate and rhythm with a loud systolic cardiac murmur. RESPIRATORY: Breath sounds equal bilaterally. No accessory muscle use. GASTROINTESTINAL: Abdomen soft, non-tender, nondistended. MUSCULOSKELETAL: No cyanosis, or edema. SKIN: Warm and dry. NEURO: No focal neurological deficits. Results Labs CBC & Chem 7: 11/02/18 04:20 11/03/18 04:20 Labs: Microbiology 10/30/18 19:25 Blood - Line Aerobic Blood Culture - Preliminary No growth in 4 days 10/30/18 19:25 Blood - Line Anaerobic Blood Culture - Preliminary No growth in 4 days 10/30/18 19:20 Blood - Line Aerobic Blood Culture - Preliminary No growth in 4 days 10/30/18 19:20 Blood - Line Anaerobic Blood Culture - Preliminary No growth in 4 days Assessment and Plan (1) Acute respiratory distress: Code(s): R06.03 - Acute respiratory distress Status: Acute (2) Pulmonary edema: Code(s): J81.1 - Chronic pulmonary edema Status: Acute (3) Aortic stenosis: Code(s): I35.0 - Nonrheumatic aortic (valve) stenosis Status: Acute (4) Aortic insufficiency: Code(s): I35.1 - Nonrheumatic aortic (valve) insufficiency Status: Acute (5) Hypokalemia: Code(s): E87.6 - Hypokalemia Status: Acute Plan 73-year-old male admitted secondary to acute pulmonary edema with an elevated troponin level Respiratory distress overnight, this was transient and likely related to his aortic stenosis. Plan for aortic valve replacement on 11/04/2018. Severe aortic stenosis Likely the cause of symptoms that brought him to the hospital Plan for aortic valve replacement on 11/04/2018 Acute pulmonary edema Acute respiratory Failure Elevated BNP Elevated D-dimer Resolved Etiology may be related to hypertensive crisis versus anaphylaxis versus a myocardial event Plan for heart cath Continue diuretics as needed Elevated troponin Atherosclerotic vascular disease History of carotid artery disease Elevated BNP Systolic CHF Max troponin was 0.65 overnight with AM troponin of 0.51 Heart cath planned If no coronary artery disease is present this could be related to inflammation from anaphylaxis or mild demand ischemia from hypertensive crisis Cardiology following Echocardiogram shows mild systolic CHF Seizure disorder NOS Continue carbamazepine Seizure precautions Hyponatremia Not yet improved Follow clinically Diuresis DVT Prophylaxis SCDs Heparin Progress Note: Quality VTE Deep Vein Thrombosis/Pulmonary Embolism Present on Admission: No _ (1) Pulmonary edema Qualifiers: Chronicity: acute Qualified Code(s): J81.0 - Acute pulmonary edema (2) Aortic stenosis Qualifiers: Cardiac valve disease etiology: etiology unspecified Qualified Code(s): I35.0 - Nonrheumatic aortic (valve) stenosis (3) Aortic insufficiency Qualifiers: Cardiac valve disease etiology: etiology unspecified Qualified Code(s): I35.1 - Nonrheumatic aortic (valve) insufficiency
[2018-11-04] MEDS ORDERED: Chlorhexidine Gluconate 2% 1 Pack (2 Cloths) TOPICAL ONE (00:01)
[2018-11-04] MEDS ORDERED: Metoprolol Tartrate 25 MG Tablet PO SCH (00:01)
[2018-11-04] MEDS ORDERED: Sodium Chloride 0.9% 2 ML Flush PRN IV.FLUSH (00:05)
[2018-11-04] MEDS: Insulin NovoLOG Aspart Correctional Sugar Inj SQ SCH ×4 (00:39→17:07)
[2018-11-04] MEDS ORDERED: Sodium Chlor 0.9% Inj 500 ML IV.SIG SCH (01:00)
[2018-11-04 04:48] LABS: Baso # (Auto) 0.1 th/mm3 (0.0-0.2); Baso % (Auto) 1.2 % (0.0-2.0); Eos # (Auto) 0.4 th/mm3 (0.0-0.4); Eos % (Auto) 8.2 % (0.0-4.0); Hematocrit 35.5 % (39.0-51.0); Hemoglobin 12.5 gm/dL (13.0-17.0); Lymph # (Auto) 1.1 th/mm3 (1.0-4.8); Lymph % (Auto) 21.7 % (9.0-44.0); Mean Corpuscular HGB Conc 35.3 % (32.0-36.0); Mean Corpuscular Hemoglobin 32.5 pg (27.0-34.0); Mean Corpuscular Volume 92.1 fL (80.0-100.0); Mean Platelet Volume 7.4 fL (7.0-11.0); Mono # (Auto) 0.6 th/mm3 (0.0-0.9); Mono % (Auto) 12.3 % (0.0-8.0); Neut # (Auto) 2.8 th/mm3 (1.8-7.7); Neut % (Auto) 56.6 % (16.0-70.0); Platelet Count 187 th/mm3 (150-450); Red Blood Count 3.85 mil/mm3 (4.50-5.90)
[2018-11-04 05:04] LABS: Alanine Aminotransferase 21 U/L (12-78); Albumin 3.3 g/dL (3.4-5.0); Anion Gap 9 meq/L (5-15); Aspartate Aminotransferase 21 U/L (15-37); Blood Urea Nitrogen 16 mg/dL (7-18); Calcium 8.1 mg/dL (8.5-10.1); Carbon Dioxide 26.7 meq/L (21.0-32.0); Chloride 92 meq/L (98-107); Glomerular Filtration Rate 89 mL/min (>89); Glucose,Random 94 mg/dL (74-106); Potassium 4.1 meq/L (3.5-5.1); Sodium 128 meq/L (136-145)
[2018-11-04 05:07] LABS: Alkaline Phosphatase 74 U/L (45-117); Total Protein 6.1 g/dL (6.4-8.2)
[2018-11-04] MEDS ORDERED: MethylPREDNISolone Sod Succinate Inj 125 MG/2 ML Vial ONE (06:25)
[2018-11-04] MEDS ORDERED: Heparin - SQ 10,000 UNITS/ML Vial ONE ×2 (06:25→06:50)
[2018-11-04] MEDS ORDERED: ceFAZolin 1 GM Premix Inj 2 GM/100 ML PIGGYBACK IV.SIG ONE (06:30)
[2018-11-04] MEDS: Chlorhexidine Gluconate 2% 1 Pack (2 Cloths) TOPICAL SCH (06:47)
[2018-11-04] MEDS ORDERED: Sodium Chlor 0.9% Inj 20 ML, Bupivacaine Liposo PF 1.3% Inj 20 ML, Dexamethasone PF Inj... IRRIGATION ONE ×4 (07:15)
[2018-11-04] MEDS ORDERED: CUST1000P IRRIGATION ONE (07:17)
[2018-11-04] MEDS ORDERED: Potassium Chlor 40 mEq Premix 40 MEQ/100 ML PIGGYBACK ONE (07:18)
[2018-11-04] MEDS ORDERED: Heparin 10,000 UNITS/10 ML Vial (for IV use) ONE (07:19)
[2018-11-04] MEDS ORDERED: Calcium Chloride Inj 1 GM/10 ML Syringe ONE (07:19)
[2018-11-04] MEDS ORDERED: Albumin Human 25% Inj 50 ML IV.SIG ONE (07:20)
--- NOTE | 2018-11-04 11:24 | P.PNIM ---
Subjective Interval history: Patient has had a atrial valve replacement today. Sternotomy procedure was required rather than less invasive approach. Doing well postop. Remains sedated, so provides no history today. Pain controlled. Physical Exam Vital signs: Last Vital Signs Temp 98.4 F 11/04/18 06:00 Pulse 86 11/04/18 06:00 Resp 20 11/04/18 06:00 BP 121/63 11/04/18 06:00 Pulse Ox 94 L 11/04/18 06:00 Intake & Output 11/02/18 11/03/18 11/04/18 11/05/18 06:59 06:59 06:59 06:59 Intake Total 910 / 910 1500 / 1500 1260 / 1260 Output Total 900 / 900 1825 / 1825 1450 / 1450 Balance -325 / -325 -190 / -190 Weight 110 kg 109 kg 100 kg Narrative: GENERAL: NAD, A&Ox0, intubates and sedated HEAD: Normocephalic. NECK: Supple, trachea midline. No lymphadenopathy. EYES: No scleral icterus. No injection or drainage. CARDIOVASCULAR: Regular rate and rhythm with a loud systolic cardiac murmur. RESPIRATORY: Breath sounds equal bilaterally. No accessory muscle use. GASTROINTESTINAL: Abdomen soft, non-tender, nondistended. MUSCULOSKELETAL: No cyanosis, or edema. SKIN: Warm and dry. NEURO: No focal neurological deficits. Urinary Catheter Management Indwelling Temp Sensing Catheter: Cath placed during this visit: yes Urethral indwelling: No Insertion date: 11/04/18 Insertion time: 07:40 Results Labs CBC & Chem 7: 11/04/18 04:03 11/04/18 04:03 Labs: Microbiology 10/30/18 19:25 Blood - Line Aerobic Blood Culture - Final No growth in 5 days 10/30/18 19:25 Blood - Line Anaerobic Blood Culture - Final No growth in 5 days 10/30/18 19:20 Blood - Line Aerobic Blood Culture - Final No growth in 5 days 10/30/18 19:20 Blood - Line Anaerobic Blood Culture - Final No growth in 5 days Assessment and Plan (1) Acute respiratory distress: Code(s): R06.03 - Acute respiratory distress Status: Acute (2) Pulmonary edema: Code(s): J81.1 - Chronic pulmonary edema Status: Acute (3) Aortic stenosis: Code(s): I35.0 - Nonrheumatic aortic (valve) stenosis Status: Acute (4) Aortic insufficiency: Code(s): I35.1 - Nonrheumatic aortic (valve) insufficiency Status: Acute (5) Hypokalemia: Code(s): E87.6 - Hypokalemia Status: Acute Plan 73-year-old male admitted secondary to acute pulmonary edema with an elevated troponin level Aortic valve replacement on 11/04/2018. Continue postsurgical care. Continue pain management. Hx of Severe aortic stenosis Status Post Aortic Valve Replacement Likely the cause of symptoms that brought him to the hospital Status post aortic valve replacement on 11/04/2018 Continue post op care Cardiothoracic Surgeon following Cardiology following Acute pulmonary edema Acute respiratory Failure Elevated BNP Elevated D-dimer Resolved Etiology may be related to hypertensive crisis versus anaphylaxis versus a myocardial event Plan for heart cath Continue diuretics as needed Elevated troponin Atherosclerotic vascular disease History of carotid artery disease Elevated BNP Systolic CHF Max troponin was 0.65 overnight with AM troponin of 0.51 Heart cath planned If no coronary artery disease is present this could be related to inflammation from anaphylaxis or mild demand ischemia from hypertensive crisis Cardiology following Echocardiogram shows mild systolic CHF Seizure disorder NOS Continue carbamazepine Seizure precautions Hyponatremia Not yet improved Follow clinically Diuresis DVT Prophylaxis SCDs Heparin Progress Note: Quality VTE Deep Vein Thrombosis/Pulmonary Embolism Present on Admission: No _ (1) Aortic insufficiency Qualifiers: Cardiac valve disease etiology: etiology unspecified Qualified Code(s): I35.1 - Nonrheumatic aortic (valve) insufficiency (2) Aortic stenosis Qualifiers: Cardiac valve disease etiology: etiology unspecified Qualified Code(s): I35.0 - Nonrheumatic aortic (valve) stenosis (3) Pulmonary edema Qualifiers: Chronicity: acute Qualified Code(s): J81.0 - Acute pulmonary edema
[2018-11-04] MEDS ORDERED: fentaNYL Citrate Inj 250 MCG/5 ML Ampul ONE ×2 (11:31)
[2018-11-04] MEDS ORDERED: ceFAZolin 1 GM Premix Inj 1 GM/50 ML PIGGYBACK IV.SIG ONE (11:40)
[2018-11-04] MEDS: Furosemide 40 MG Tablet PO SCH (11:49)
[2018-11-04] MEDS: carBAMazepine 200 MG Tablet PO SCH ×2 (11:50→21:12)
[2018-11-04] MEDS: Sodium Chloride 0.9% 2 ML Flush BID IV.FLUSH SCH ×2 (11:50→23:32)
[2018-11-04] MEDS: Pantoprazole Inj 40 MG Vial IV.PUSH SCH (11:50)
[2018-11-04] MEDS: Senna/Docusate Sodium 8.6/50 MG Tablet PO SCH ×2 (11:50→20:30)
[2018-11-04] MEDS ORDERED: Post-op Orders (for Pharmacy) OTHER STA (11:51)
[2018-11-04] MEDS ORDERED: RESP: Racemic Epinephrine 2.25% 0.5 ML Neb NEB PRN (11:51)
[2018-11-04] MEDS ORDERED: Dexmedetomidine Inj 200 MCG in Sodium Chlor 0.9% Inj 48 ML IV.CONT PRN (11:51)
[2018-11-04] MEDS ORDERED: Dextrose 50% in Water 50 ML Vial IV.PUSH PRN (11:51)
[2018-11-04] MEDS ORDERED: Clevidipine Inj 25 MG/50 ML VIAL IV.CONT PRN (11:51)
[2018-11-04] MEDS ORDERED: Metoprolol Inj 5 MG/5 ML Vial IV.PUSH PRN (11:51)
[2018-11-04] MEDS ORDERED: Calcium Chloride Inj 1 GM/10 ML Syringe IV.PUSH PRN (11:51)
[2018-11-04] MEDS ORDERED: Potassium Chlor 20 mEq Premix 20 MEQ/100 ML PIGGYBACK IV.SIG PRN ×3 (11:51)
[2018-11-04] MEDS ORDERED: Calcium Chloride Inj 1 GM in Sodium Chlor 0.9% Inj 100 ML IV.SIG PRN (11:51)
[2018-11-04] MEDS ORDERED: Albumin Human 5% Inj 250 ML IV.SIG PRN (11:51)
[2018-11-04] MEDS ORDERED: Insulin Regular (For Infusion) 100 UNIT in Sodium Chlor 0.9% Inj 99 ML IV.CONT PRN (11:51)
[2018-11-04] MEDS ORDERED: Magnesium Sulfate Inj 2 GM in Sodium Chlor 0.9% Inj 96 ML IV.SIG PRN ×4 (11:51)
--- NOTE | 2018-11-04 12:02 | P.OP ---
- Preoperative Diagnosis (1) Acute respiratory distress (2) Pulmonary edema (3) Aortic stenosis (4) Aortic insufficiency (5) Combined systolic and diastolic congestive heart failure Postoperative Diagnosis: same Date of procedure: 11/04/18 Procedure: AVR with a 23 Wang Magna Ease tissue valve HERNANDO Implants: 23 Magna ease tissue valve Anesthesia: GETA Surgeon: Shelly Monreal MD Cable Maker: Colin Rosales Pathology: other (aortic valve leaflets) Operation and Findings: The risks, benefits, complications, treatment options, and expected outcomes were discussed with the patient. The possibilities of reaction to medication, pulmonary aspiration, perforation of viscus, bleeding, recurrent infection, the need for additional procedures, failure to diagnose a condition, and creating a complication requiring transfusion or operation were discussed with the patient. The patient concurred with the proposed plan, giving informed consent. The site of surgery properly noted/marked. The patient was taken to Operating Room, identified as Parker aquino and the procedure verified as Aortic Valve Replacement, HERNANDO. A Time Out was held and the above information confirmed. Standard monitoring lines and Couch catheter were placed. General anesthesia was induced. The patient was prepped and draped in a sterile fashion. Initially , a small right anterior thoracotomy was performed for a minimally invasive approach. Unfortunately, the patient had osseous fusion of the 2-4th ribs on the right with some pulmonary adhesions, so this approach was aborted and the wound closed in layers. A median sternotomy was performed and electrocautery was used to obtain hemostasis. The pericardium was opened and a pericardial sling was created using interrupted 0 silk sutures. The patient was heparinized cardiopulmonary bypass. The heart was instrumented for cardiopulmonary bypass in the usual manner. Antegrade Custodiol cardioplegia were employed. Additionally, hand-held coronary cardioplegia cannula was used during the procedure. The patient was placed on cardiopulmonary bypass. an aortic cross- clamp was applied and the heart was arrested using cold Custodiol cardioplegia. The aorta was opened above the sinotubular ridge and the aortic valve was exposed. On opening the aorta, the valve was found to be moderately calcified with partial fusion of the left and right cusps. The valve was resected as well as all annular calcification, sized for a 23 mm valve which was placed with 2-0 pledgeted Tycron valve sutures. The valve seated well. The aorta was closed with running 4-0 Prolene suture. The patient systemically Re warmed and received a hotshot dose of warm blood cardioplegia. The heart was vigorously deaired with a clamp on. The clamp was removed, deairing continued. The patient was easily weaned from cardiopulmonary bypass. Protamine was given. There was no adverse reaction. Decannulation was carried out without incident. Intraoperative HERNANDO following the procedure showed a well-seated aortic valve with no perivalvular leak and preserved ventricular function. Wound was checked for hemostasis was obtained using electrocautery. The sternum was closed with stainless steel wire. The fascia was closed with 1. PDS. The subcutaneous tissue was closed using a running 2-0 Vicryl suture. The skin was closed with 4- 0 Monocryl. Sterile dressings were placed. At the end of the operation, all sponge, instruments, and needle counts were correct. The patient was transferred to the CVICU in stable condition. Findings: Preserved LV function, well-seated AV with no PVL. XC: 71 CPB: 88 Drains: mediastinal x 1, right pleural tube Complications: none
[2018-11-04] MEDS ORDERED: Albumin Human 5% Inj 250 ML IV.SIG ONE (12:23)
[2018-11-04] MEDS ORDERED: fentaNYL Citrate Inj 100 MCG/2 ML Ampul ONE (12:30)
--- NOTE | 2018-11-04 13:07 | XR ---
EXAM DATE: 11/04/2018 1:01 PM EST AGE/SEX: 73 years / Male INDICATIONS: Post-op CABG. CLINICAL DATA: This is the patient's initial encounter. Patient reports that signs and symptoms have been present for 1 day and indicates a pain score of Nonresponsive. MEDICAL/SURGICAL HISTORY: . Atherosclerotic vascular disease. Epilepsy. Hyperlipidemia. CAD. Ac brett respiratory failure. . Pyloric stenosis surgery. COMPARISON: [facility], CHEST 1V SINGLE AP, 11/01/2018. . FINDINGS: ET tube nasogastric tube and central line and right chest tube in good position. Mediastinal drain is evident. Mild interstitial edema is present. Minimal mediastinal prominence is evident. There is no pneumothorax. CONCLUSION: Mild interstitial edema, minimal mediastinal prominence. Electronically signed by: Markell Simmons MD 11/04/2018 1:05 PM EST
--- NOTE | 2018-11-04 13:39 | P.PNCV ---
- Note Subjective/Hospital Course: 73-year-old male patient of Dr. Granado presented to [facility] due to shortness of breath. He presented with dyspnea and acute CHF. During these episodes, he did have some chest heaviness. He had a recent echocardiogram showing [id number] aortic stenosis with a mean gradient of 46, a normal ejection fraction and moderate aortic regurgitation. His ECHO on this admission shows decreased EF at ~45% with moderate to severe and moderate AI. LHC/RHC today shows no significant CAD. He is being considered for AVR. 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 Postoperative Diagnosis: same Date of procedure: 11/04/18 Procedure: AVR with a 23 Wang Magna Ease tissue valve HERNANDO Implants: 23 Magna ease tissue valve Objective: Vital Signs - 24 hr 11/03/18 14:00 11/03/18 15:00 11/03/18 16:00 Temperature 98.1 F Pulse Rate 84 86 82 Respiratory Rate 18 Blood Pressure 111/58 L Pulse Oximetry 97 11/03/18 17:00 11/03/18 17:45 11/03/18 18:00 Temperature Pulse Rate 82 82 90 Respiratory Rate 16 Blood Pressure Pulse Oximetry 11/03/18 19:00 11/03/18 19:10 11/03/18 19:47 Temperature 98.5 F Pulse Rate 101 H 97 H 95 H Respiratory Rate 18 19 Blood Pressure 114/55 L Pulse Oximetry 97 94 L 11/03/18 20:00 11/03/18 21:00 11/03/18 22:00 Temperature Pulse Rate 95 H 94 H 89 Respiratory Rate Blood Pressure Pulse Oximetry 96 11/03/18 23:00 11/03/18 23:19 11/04/18 00:00 Temperature Pulse Rate 88 82 94 H Respiratory Rate 18 Blood Pressure Pulse Oximetry 11/04/18 00:05 11/04/18 01:00 11/04/18 02:00 Temperature 98.5 F Pulse Rate 94 H 98 H 84 Respiratory Rate 19 Blood Pressure 116/56 L Pulse Oximetry 94 L 11/04/18 03:00 11/04/18 04:00 11/04/18 05:11 Temperature Pulse Rate 84 84 80 Respiratory Rate Blood Pressure Pulse Oximetry 11/04/18 06:00 11/04/18 12:07 11/04/18 12:10 Temperature 98.4 F 98.2 F Pulse Rate 86 96 H Respiratory Rate 20 10 L 17 Blood Pressure 121/63 113/56 L Pulse Oximetry 94 L 95 97 11/04/18 12:15 11/04/18 12:25 Temperature Pulse Rate 86 Respiratory Rate Blood Pressure Pulse Oximetry 97 Labs: Laboratory Results - last 12 hr 11/03/18 11/04/18 11/04/18 04:20 04:03 04:03 WBC 5.0 RBC 3.85 L Hgb 12.5 L Hct 35.5 L MCV 92.1 MCH 32.5 MCHC 35.3 RDW 13.0 Plt Count 187 MPV 7.4 Neut % (Auto) 56.6 Lymph % (Auto) 21.7 Wolfe % (Auto) 12.3 H Eos % (Auto) 8.2 H Baso % (Auto) 1.2 Neut # (Auto) 2.8 Lymph # (Auto) 1.1 Wolfe # (Auto) 0.6 Eos # (Auto) 0.4 Baso # (Auto) 0.1 WBC Differential . Differential Comment Auto diff final Sodium 128 L Potassium 4.1 Chloride 92 L Carbon Dioxide 26.7 Anion Gap 9 BUN 16 Creatinine 0.85 Estimated GFR 89 POC Glucose Random Glucose 94 Calcium 8.1 L Total Bilirubin 0.5 AST 21 ALT 21 Alkaline Phosphatase 74 Total Protein 6.1 L Albumin 3.3 L Blood Type O Positive Blood Type Recheck Required Antibody Screen Negative MTS Gel Crossmatch See Detail Bld Prod Order Comment 11/04/18 11/04/18 12:35 13:06 WBC RBC Hgb Hct MCV MCH MCHC RDW Plt Count MPV Neut % (Auto) Lymph % (Auto) Wolfe % (Auto) Eos % (Auto) Baso % (Auto) Neut # (Auto) Lymph # (Auto) Wolfe # (Auto) Eos # (Auto) Baso # (Auto) WBC Differential Differential Comment Sodium Potassium Chloride Carbon Dioxide Anion Gap BUN Creatinine Estimated GFR POC Glucose 104 Random Glucose Calcium Total Bilirubin AST ALT Alkaline Phosphatase Total Protein Albumin Blood Type Blood Type Recheck Antibody Screen MTS Gel Crossmatch Bld Prod Order Comment Result Diagrams: 11/04/18 04:03 11/04/18 04:03 - Plan (3) Aortic stenosis (3) Aortic stenosis Qualifiers: Cardiac valve disease etiology: etiology unspecified Qualified Code(s): I35.0 - Nonrheumatic aortic (valve) stenosis
--- NOTE | 2018-11-04 13:49 | P.DCO ---
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 (4) S/P AVR Status: Acute - Home Health Nursing Order: Medical education, Signs/symptoms of disease process, Wound care and dressing changes, Nursing assessment with vital signs Instructions: Heart and Vascular Surgery patients *Special attention to sternal dressing Mandatory frequency Assess and evaluation, 4 days in a row The next week 3X week 2 times a week for 4 weeks 1 time a week for 5 weeks Schedule Heart and Vascular patients for full 60 day certification period Initial visit Review Open Heart Surgery Discharge Instructions (Sternal precautions, Activity, Elastic hose, Incision care, Driving, Incentive spirometry, Smoking, [place], Work and other) Need Betadine to paint incision Medication reconciliation Importance of follow up care/ check on appointments Make calendar record temperature daily When to call [facility] nurse, review instructions, phone list Incentive Spirometry, demonstration Visit 1- Begin discharge instruction for patient family and/ or caregiver using teach back method- Signs and symptoms of infection Disease characteristics Medicines and side effects Foods and nutrition/ appetite Infection control/ hand washing/ hygiene Visit 2- Continue teaching Discharge instructions- include additional information on smoking cessation , sternal dressing (sternal vac) Visit 3- Continue teaching- Cough and deep breathing, incision monitoring. Choose my plate Visit 4- Continue teaching- Discuss limitations Discuss how they are feeling Discuss progress toward goals Remaining visits- continue teaching and monitoring For any questions please call : Sunday 8am-5pm Heart & Vascular Surgery Office ( Dr. Bradley & Dr. Monreal), After Hours / Nights (5pm -8am) Weekends and Holidays Please call [facility] ([facility]) Charge Nurse PREVENA Single Use Negative Wound Therapy System Caregiver Instruction Sheet 1. A Prevena dressing system was applied to the chest incision during surgery , to promote wound healing. It works via a suction device (negative pressure wound therapy) to remove low to moderate levels of exudate (drainage) and infectious materials. We recommend that the device stay in place for up to seven days, from day of surgery. 2. Day of Surgery___/09/12 Day of Removal ___/ 3. The dressing should only be removed by a health career services officer. Please arrange removal of device to coincide with Home Health visit and or with Nursing staff at Rehab 4. If skin reddening or irritation of skin occurs, or excessive drainage, please notify the Cardiovascular Surgeons office at [phone]. 5. Light showering is permissible; however the pump should be disconnected and placed in safe location, where it will not get wet. The dressing should not be exposed to direct spray or submerged in water. No bath tub / shower only. Ensure the end of the tubing attached to the dressing is facing down so that water does not enter the top of the tube. 6. To remove Prevena dressing: press purple button to turn off device / remove the suction. Then disconnect the tubing from the pump. The fixation strips should be stretched away from the skin and the dressing lifted at one corner and peeled back until it has been fully removed. 7. After removal, it is ok to shower daily using liquid dial soap and clean wash cloth, rinse and pat dry, and leave incision open to air dry. For any concerns regarding Prevena dressing, and or wounds, please contact Tiffany Cheng, patient navigator at [phone] or notify the Cardiovascular Surgeons office at [phone]. Incentive spirometry Q1 hr x 10, while awake, also use acapella device hourly whole awake Sternal Breast Bone Precautions: NO pushing or pulling, ( pt must use sternal pillow to support chest with all activities and with coughing ( takes up to 3 months breast bone to heal ) Daily incision care: ok to shower daily, no tub bath. Wash all incisions with liquid dial soap, clean wash cloth to each site, rinse and pat dry. Observe for any signs of infection, such as drainage which is dark yellow, gonzales, green or foul smelling. Immediately report to the surgeon any drainage from the chest incision, or legs, and for any abnormal drainage from the chest tube sites. Notify surgeon if any temp >101.5 degrees F. When specialty dressing removed/ or if you do not have one, continue to shower daily as above, then rinse and pat incision dry and paint with betadine daily x 5 days. Allow steri strips to fall off if you have any. Avoid lotions, creams, salves, oils, etc. for the first month Please see attached forms for additional instructions regarding post Open Heart specialty wound vacuum dressings. AARON or Prevena , Dressing to be removed by Nursing staff on ___11/11/18____ For Dr. Monreal patients , please obtain CBC, BMP, PA & Lat CXR in 2 weeks, results to Dr. Monreal ( prescription will be given) ( ) (Tele: [phone]) , Valve replacement pts will need 2decho in 2 weeks with results to Dr. Monreal . Please obtain 2 d echo at your biofuels technology manager office if possible F/U appointment: as per DC instructions: PCP in 2 weeks, CV surgeon 2 weeks, Catering Convention Services Manager 3-4 weeks For any questions regarding incisions/ dressing / meds / post op care or above Symptoms, Sunday 8am-5pm Heart & Vascular Surgery Office ( Dr. Bradley & Dr. Monreal), After Hours / Nights (5pm -8am) Weekends and Holidays Please call [facility] ([facility]) Charge Nurse - Case Management Consult Case Management Consult-Home Health: Yes - Certification I have seen patient Parker aSnon on 11/04/18. My clinical findings support the need for the requested home health care services because: Deconditioned with increased weakness I certify that my clinical findings support that this patient is homebound because: Post-op weakness (2) Aortic stenosis Qualifiers: Cardiac valve disease etiology: etiology unspecified Qualified Code(s): I35.0 - Nonrheumatic aortic (valve) stenosis (3) Combined systolic and diastolic congestive heart failure Qualifiers: Heart failure chronicity: acute on chronic Qualified Code(s): I50.43 - Acute on chronic combined systolic (congestive) and diastolic (congestive) heart failure
[2018-11-04] MEDS: fentaNYL Citrate Inj 100 MCG/2 ML Ampul IV.PUSH PRN ×3 (14:26→20:31)
[2018-11-04] MEDS: Amiodarone 200 MG Tablet PO SCH ×2 (17:04→23:32)
[2018-11-04] MEDS: ceFAZolin 1 GM Premix Inj 1 GM/50 ML PIGGYBACK IV.SIG SCH (20:30)
[2018-11-05] MEDS: fentaNYL Citrate Inj 100 MCG/2 ML Ampul IV.PUSH PRN ×3 (01:47→23:09)
[2018-11-05 05:25] LABS: Baso % (Auto) 0.3 % (0.0-2.0); Eos % (Auto) 0.1 % (0.0-4.0); Hematocrit 35.8 % (39.0-51.0); Hemoglobin 12.4 gm/dL (13.0-17.0); Lymph % (Auto) 8.7 % (9.0-44.0); Mean Corpuscular HGB Conc 34.7 % (32.0-36.0); Mean Corpuscular Hemoglobin 32.9 pg (27.0-34.0); Mean Corpuscular Volume 94.7 fL (80.0-100.0); Mean Platelet Volume 7.4 fL (7.0-11.0); Mono # (Auto) 1.9 th/mm3 (0.0-0.9); Mono % (Auto) 16.6 % (0.0-8.0); Neut # (Auto) 8.5 th/mm3 (1.8-7.7); Neut % (Auto) 74.3 % (16.0-70.0); Platelet Count 153 th/mm3 (150-450); Red Blood Count 3.78 mil/mm3 (4.50-5.90); Red Cell Distribution Width 13.3 % (11.6-17.2); White Blood Count 11.4 th/mm3 (4.0-11.0)
[2018-11-05 06:05] LABS: Alanine Aminotransferase 21 U/L (12-78); Albumin 3.2 g/dL (3.4-5.0); Alkaline Phosphatase 64 U/L (45-117); Anion Gap 8 meq/L (5-15); Aspartate Aminotransferase 52 U/L (15-37); Blood Urea Nitrogen 27 mg/dL (7-18); Calcium 8.3 mg/dL (8.5-10.1); Carbon Dioxide 23.4 meq/L (21.0-32.0); Chloride 97 meq/L (98-107); Glomerular Filtration Rate 74 mL/min (>89); Glucose,Random 117 mg/dL (74-106); Magnesium 2.3 mg/dL (1.5-2.5); Potassium 5.2 meq/L (3.5-5.1); Sodium 128 meq/L (136-145); Total Protein 5.7 g/dL (6.4-8.2)
[2018-11-05] MEDS: Amiodarone 200 MG Tablet PO SCH ×3 (06:20→23:04)
--- NOTE | 2018-11-05 06:31 | XR ---
EXAM DATE: 11/05/2018 6:23 AM EST AGE/SEX: 73 years / Male INDICATIONS: Chest pain, shortness of breath post CABG. CLINICAL DATA: This is the patient's subsequent encounter. Patient reports that signs and symptoms h ave been present for 4 - 6 days and indicates a pain score of 5/10. MEDICAL/SURGICAL HISTORY: Congestive heart failure. Epilepsy. . Aortic valve replacement. COMPARISON: [facility] [place], CHEST 1V SINGLE AP, 11/04/2018. . FINDINGS: Single AP view the chest. Median sternotomy wires noted. Endotracheal tube no longer seen. Bilateral chest tubes, mediastinal drain, and left subclavian central venous catheter remain in place. There is persistent left lower lobe atelectasis as well as mild patchy right lung base opacity. CONCLUSION: Endotracheal tube no longer seen. No other significant interval change. Electronically signed by: Ravindra Montano MD 11/05/2018 6:29 AM EST
[2018-11-05] MEDS: Insulin NovoLOG Aspart Correctional Sugar Inj SQ SCH ×5 (08:25→23:03)
[2018-11-05] MEDS ORDERED: Sod Phosphate/Sod Biphosphate (Adult) Enema 133 ML Bottle RECTAL PRN (08:50)
[2018-11-05] MEDS ORDERED: Bisacodyl 10 MG Supp RECTAL PRN (08:50)
[2018-11-05] MEDS ORDERED: Dextrose 50% in Water 50 ML Vial IV.PUSH PRN (08:50)
[2018-11-05] MEDS: Metoprolol Tartrate 25 MG Tablet PO SCH ×2 (09:35→20:37)
[2018-11-05] MEDS: carBAMazepine 200 MG Tablet PO SCH ×2 (09:36→20:33)
[2018-11-05] MEDS: Senna/Docusate Sodium 8.6/50 MG Tablet PO SCH ×2 (09:36→20:37)
[2018-11-05] MEDS: Pantoprazole Inj 40 MG Vial IV.PUSH SCH (09:36)
[2018-11-05] MEDS: Multivitamin/Minerals Therapeutic Tablet PO SCH (09:39)
[2018-11-05] MEDS: ceFAZolin 1 GM Premix Inj 1 GM/50 ML PIGGYBACK IV.SIG SCH ×3 (09:39→20:31)
--- NOTE | 2018-11-05 09:39 | P.PNCV ---
- Note Subjective/Hospital Course: 73-year-old male patient of Dr. Granado presented to [facility] due to shortness of breath. He presented with dyspnea and acute CHF. During these episodes, he did have some chest heaviness. He had a recent echocardiogram showing [id number] aortic stenosis with a mean gradient of 46, a normal ejection fraction and moderate aortic regurgitation. His ECHO on this admission shows decreased EF at ~45% with moderate to severe and moderate AI. LHC/RHC today shows no significant CAD. He is being considered for AVR. 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 Postoperative Diagnosis: same Date of procedure: 11/04/18 Procedure: AVR with a 23 Wang Magna Ease tissue valve HERNANDO Implants: 23 Magna ease tissue valve extubated after surgery 11/05 +1400cc/ eval for diuresis later today will need to be up in chair, ambulated pulm toileting, nebs ezpap , acapella eval for transfer to stepdown on ASA, Amiodarone, start low dose BB Objective: Vital Signs - 24 hr 11/04/18 12:07 11/04/18 12:10 11/04/18 12:15 Temperature 98.2 F Pulse Rate 96 H Respiratory Rate 10 L 17 Blood Pressure 113/56 L Pulse Oximetry 95 97 97 11/04/18 12:25 11/04/18 13:37 11/04/18 15:00 Temperature 99 F Pulse Rate 86 89 Respiratory Rate 9 L 10 L Blood Pressure 119/66 Pulse Oximetry 96 96 11/04/18 15:21 11/04/18 15:22 11/04/18 17:49 Temperature Pulse Rate Respiratory Rate 10 L 12 Blood Pressure Pulse Oximetry 97 11/04/18 18:44 11/04/18 19:00 11/04/18 20:00 Temperature 98.6 F Pulse Rate 91 H Respiratory Rate 11 L 22 Blood Pressure 124/53 L Pulse Oximetry 96 95 11/04/18 20:25 11/04/18 23:00 11/05/18 03:00 Temperature 98.6 F Pulse Rate 91 H 91 H Respiratory Rate 23 Blood Pressure 154/61 H Pulse Oximetry 95 96 11/05/18 07:00 11/05/18 07:46 11/05/18 07:52 Temperature 98.5 F Pulse Rate 83 Respiratory Rate 14 Blood Pressure 149/78 H Pulse Oximetry 97 96 97 11/05/18 08:24 11/05/18 08:25 11/05/18 08:26 Temperature Pulse Rate Respiratory Rate 12 12 12 Blood Pressure Pulse Oximetry GENERAL: A&O x 3 SKIN: Warm and dry. prevena dressing to chest HEAD: Normocephalic. EYES: No scleral icterus. No injection or drainage. NECK: Supple, trachea midline. No JVD or lymphadenopathy. CARDIOVASCULAR: Regular rate and rhythm without murmurs, gallops, or rubs. RESPIRATORY: Breath sounds equal bilaterally. No accessory muscle use. diminished in bases / chest tube to wall suction, no air leak, drained 200cc/ 12 hrs GASTROINTESTINAL: Abdomen soft, non-tender, nondistended. MUSCULOSKELETAL: No cyanosis, or edema. BACK: Nontender without obvious deformity. No CVA tenderness. Labs: Laboratory Results - last 12 hr 11/03/18 11/04/18 11/05/18 04:20 23:48 05:05 WBC RBC Hgb Hct MCV MCH MCHC RDW Plt Count MPV Neut % (Auto) Lymph % (Auto) [place] % (Auto) Eos % (Auto) Baso % (Auto) Neut # (Auto) Lymph # (Auto) [place] # (Auto) Eos # (Auto) Baso # (Auto) WBC Differential Differential Comment Sodium 128 L Potassium 5.2 H D Chloride 97 L Carbon Dioxide 23.4 Anion Gap 8 BUN 27 H Creatinine 1.00 Estimated GFR 74 L POC Glucose 108 Random Glucose 117 H Calcium 8.3 L Magnesium 2.3 Total Bilirubin 0.7 AST 52 H ALT 21 Alkaline Phosphatase 64 Total Protein 5.7 L Albumin 3.2 L Blood Type O Positive Blood Type Recheck Required Antibody Screen Negative MTS Gel Crossmatch See Detail 11/05/18 11/05/18 11/05/18 05:05 07:27 08:09 WBC 11.4 H RBC 3.78 L Hgb 12.4 L Hct 35.8 L MCV 94.7 MCH 32.9 MCHC 34.7 RDW 13.3 Plt Count 153 MPV 7.4 Neut % (Auto) 74.3 H Lymph % (Auto) 8.7 L [place] % (Auto) 16.6 H Eos % (Auto) 0.1 Baso % (Auto) 0.3 Neut # (Auto) 8.5 H Lymph # (Auto) 1.0 [place] # (Auto) 1.9 H Eos # (Auto) 0.0 Baso # (Auto) 0.0 WBC Differential . Differential Comment Auto diff final Sodium Potassium Chloride Carbon Dioxide Anion Gap BUN Creatinine Estimated GFR POC Glucose 123 H 133 H Random Glucose Calcium Magnesium Total Bilirubin AST ALT Alkaline Phosphatase Total Protein Albumin Blood Type Blood Type Recheck Antibody Screen MTS Gel Crossmatch Result Diagrams: 11/05/18 05:05 11/05/18 05:05 Telemetry: NSR - Plan (1) Seizure disorder Plan: on tegretol (2) Aortic stenosis (3) Combined systolic and diastolic congestive heart failure Plan: eval for gentle diuresis EF 45% (4) S/P AVR Plan: ON ASA, amiodarone , low dose BB OOB, ambulate transfer to stepdown unit PT CM to eval for HHC (2) Aortic stenosis Qualifiers: Cardiac valve disease etiology: etiology unspecified Qualified Code(s): I35.0 - Nonrheumatic aortic (valve) stenosis (3) Combined systolic and diastolic congestive heart failure Qualifiers: Heart failure chronicity: acute on chronic Qualified Code(s): I50.43 - Acute on chronic combined systolic (congestive) and diastolic (congestive) heart failure
--- NOTE | 2018-11-05 10:21 | P.DIET ---
Nutritional Evaluation Screening comments: MDC for diet education s/p AVR on 11/04 received. Patient Navigator to provide education. Consult RD if complexities with diet education arise.
--- NOTE | 2018-11-05 10:24 | ECG ---
Date Performed: 11/05/2018 Time Performed: 03:22:58 PTAGE: 73 years EKG: Sinus rhythm Possible anterior infarct - age undetermined Lateral T wave changes may be due to myocardial ischemi a Abnormal ECG PREVIOUS TRACING : 10/30/2018 18.48 DOCTOR: Barrington Fowler Interpretating Date/Time 11/05/2018 10:23:29
--- NOTE | 2018-11-05 11:23 | P.PN ---
Subjective Interval history: Follow-up severe aortic stenosis status post aortic valve replacement November 05, 2018-patient seen and examined, no significant anterior chest pain. Vitals stable. Physical Exam Vital signs: Vital Signs 11/04/18 12:07 11/04/18 12:10 11/04/18 12:15 Temperature 98.2 F Pulse Rate 96 H Respiratory Rate 10 L 17 Blood Pressure 113/56 L Pulse Oximetry 95 97 97 11/04/18 12:25 11/04/18 13:37 11/04/18 15:00 Temperature 99 F Pulse Rate 86 89 Respiratory Rate 9 L 10 L Blood Pressure 119/66 Pulse Oximetry 96 96 11/04/18 15:21 11/04/18 15:22 11/04/18 17:49 Temperature Pulse Rate Respiratory Rate 10 L 12 Blood Pressure Pulse Oximetry 97 11/04/18 18:44 11/04/18 19:00 11/04/18 20:00 Temperature 98.6 F Pulse Rate 91 H Respiratory Rate 11 L 22 Blood Pressure 124/53 L Pulse Oximetry 96 95 11/04/18 20:25 11/04/18 23:00 11/05/18 03:00 Temperature 98.6 F Pulse Rate 91 H 91 H Respiratory Rate 23 Blood Pressure 154/61 H Pulse Oximetry 95 96 11/05/18 07:00 11/05/18 07:46 11/05/18 07:52 Temperature 98.5 F Pulse Rate 83 Respiratory Rate 14 Blood Pressure 149/78 H Pulse Oximetry 97 96 97 11/05/18 08:24 11/05/18 08:25 11/05/18 08:26 Temperature Pulse Rate Respiratory Rate 12 12 12 Blood Pressure Pulse Oximetry 11/05/18 11:00 Temperature Pulse Rate 83 Respiratory Rate 14 Blood Pressure 132/74 Pulse Oximetry 99 Intake & Output 11/04/18 11/05/18 11/05/18 18:59 06:59 18:59 Intake Total 2831 / 2831 630 / 630 161 / 161 Output Total 3150 / 3150 670 / 670 Balance -319 / -319 -40 / -40 161 / 161 Weight 140 kg Intake: IV 711 / 711 150 / 150 161 / 161 Precedex Inj 200 MCG In NS Inj 36 / 36 0 / 0 48 ML @ 0.2 MCG/KG/HR 5 mls/hr IV.CONT TITRATE PRN Rx#: [id number] NovoLIN R (IV Infusion) 100 25 / 25 11 / 11 UNIT In NS Inj 99 ML @ 3 UNITS/ HR 3 mls/hr IV.CONT TITRATE PRN Rx#:[id number] Ofirmev Inj 1,000 mg In 100 ml 200 / 200 100 / 100 100 / 100 @ 400 mls/hr IV.SIG Q6H SHAUN Rx# :[id number] Buminate 5% Inj 250 ML @ 250 250 / 250 mls/hr IV.SIG UNSCH PRN Rx#: [id number] Calcium Chloride Inj 1 GM In NS 100 / 100 Inj 100 ML @ 100 mls/hr IV.SIG PRN PRN Rx#:[id number] KCl 20 mEq Premix Inj 20 meq In 100 / 100 100 ml @ 50 mls/hr IV.SIG PRN PRN Rx#:[id number] Ancef 1 GM Premix Inj 1 gm In 50 / 50 50 / 50 50 ml @ 100 mls/hr IV.SIG Q8H SHAUN Rx#:[id number] Oral 120 / 120 480 / 480 Anesthesia Amount 1999 / 1999 Output: Estimated Blood Loss 1500 / 1500 Urine Amount (Catheter) 1100 / 1100 470 / 470 Indwelling Temp Sensing 1100 / 1100 470 / 470 Catheter Chest Tube Drainage 550 / 550 200 / 200 #1Y and #2Y Pleural/Mediastinal 550 / 550 200 / 200 Other: Date of Last Bowel Movement 11/03/18 Narrative: GENERAL: NAD SKIN: Warm and dry. HEAD: Atraumatic. Normocephalic. EYES: Pupils equal and round. No scleral icterus. No injection or drainage. ENT: No nasal bleeding or discharge. Mucous membranes pink and moist. NECK: Trachea midline. No JVD. CARDIOVASCULAR: Regular rate and rhythm. s/p AVR ; chest tube in place RESPIRATORY: No accessory muscle use. Clear to auscultation. Breath sounds equal bilaterally. GASTROINTESTINAL: Abdomen soft, non-tender, nondistended. Hepatic and splenic margins not palpable. MUSCULOSKELETAL: Extremities without clubbing, cyanosis, or edema. No obvious deformities. NEUROLOGICAL: Awake and alert. No obvious cranial nerve deficits. Motor grossly within normal limits. Five out of 5 muscle strength in the arms and legs. Normal speech. PSYCHIATRIC: Appropriate mood and affect; insight and judgment normal. - Urinary Catheter Management Indwelling Temp Sensing Catheter Cath placed during this visit: yes, but has since been removed by the nurse Urethral indwelling: No Reason for continuing: Decision to DC catheter Insertion date: 11/04/18 Insertion time: 07:40 Removal date: 11/05/18 Removal time: 06:00 Results - Labs CBC & Chem 7: 11/05/18 05:05 11/05/18 05:05 Laboratory Results - last 24 hr 11/03/18 11/04/18 11/04/18 04:20 12:35 13:06 WBC RBC Hgb Hct MCV MCH MCHC RDW Plt Count MPV Neut % (Auto) Lymph % (Auto) [place] % (Auto) Eos % (Auto) Baso % (Auto) Neut # (Auto) Lymph # (Auto) [place] # (Auto) Eos # (Auto) Baso # (Auto) WBC Differential Differential Comment Sodium Potassium Chloride Carbon Dioxide Anion Gap BUN Creatinine Estimated GFR POC Glucose 104 Random Glucose Calcium Magnesium Total Bilirubin AST ALT Alkaline Phosphatase Total Protein Albumin Blood Type O Positive Blood Type Recheck Required Antibody Screen Negative MTS Gel Crossmatch See Detail Bld Prod Order Comment 11/04/18 11/04/18 11/04/18 13:59 14:54 16:05 WBC RBC Hgb Hct MCV MCH MCHC RDW Plt Count MPV Neut % (Auto) Lymph % (Auto) [place] % (Auto) Eos % (Auto) Baso % (Auto) Neut # (Auto) Lymph # (Auto) [place] # (Auto) Eos # (Auto) Baso # (Auto) WBC Differential Differential Comment Sodium Potassium Chloride Carbon Dioxide Anion Gap BUN Creatinine Estimated GFR POC Glucose 116 H 143 H 117 H Random Glucose Calcium Magnesium Total Bilirubin AST ALT Alkaline Phosphatase Total Protein Albumin Blood Type Blood Type Recheck Antibody Screen MTS Gel Crossmatch Bld Prod Order Comment 11/04/18 11/04/18 11/04/18 18:01 20:21 23:48 WBC RBC Hgb Hct MCV MCH MCHC RDW Plt Count MPV Neut % (Auto) Lymph % (Auto) [place] % (Auto) Eos % (Auto) Baso % (Auto) Neut # (Auto) Lymph # (Auto) [place] # (Auto) Eos # (Auto) Baso # (Auto) WBC Differential Differential Comment Sodium Potassium Chloride Carbon Dioxide Anion Gap BUN Creatinine Estimated GFR POC Glucose 104 113 H 108 Random Glucose Calcium Magnesium Total Bilirubin AST ALT Alkaline Phosphatase Total Protein Albumin Blood Type Blood Type Recheck Antibody Screen MTS Gel Crossmatch Bld Prod Order Comment 11/05/18 11/05/18 11/05/18 05:05 05:05 07:27 WBC 11.4 H RBC 3.78 L Hgb 12.4 L Hct 35.8 L MCV 94.7 MCH 32.9 MCHC 34.7 RDW 13.3 Plt Count 153 MPV 7.4 Neut % (Auto) 74.3 H Lymph % (Auto) 8.7 L [place] % (Auto) 16.6 H Eos % (Auto) 0.1 Baso % (Auto) 0.3 Neut # (Auto) 8.5 H Lymph # (Auto) 1.0 [place] # (Auto) 1.9 H Eos # (Auto) 0.0 Baso # (Auto) 0.0 WBC Differential . Differential Comment Auto diff final Sodium 128 L Potassium 5.2 H D Chloride 97 L Carbon Dioxide 23.4 Anion Gap 8 BUN 27 H Creatinine 1.00 Estimated GFR 74 L POC Glucose 123 H Random Glucose 117 H Calcium 8.3 L Magnesium 2.3 Total Bilirubin 0.7 AST 52 H ALT 21 Alkaline Phosphatase 64 Total Protein 5.7 L Albumin 3.2 L Blood Type Blood Type Recheck Antibody Screen MTS Gel Crossmatch Bld Prod Order Comment 11/05/18 11/05/18 08:09 09:31 WBC RBC Hgb Hct MCV MCH MCHC RDW Plt Count MPV Neut % (Auto) Lymph % (Auto) [place] % (Auto) Eos % (Auto) Baso % (Auto) Neut # (Auto) Lymph # (Auto) [place] # (Auto) Eos # (Auto) Baso # (Auto) WBC Differential Differential Comment Sodium Potassium Chloride Carbon Dioxide Anion Gap BUN Creatinine Estimated GFR POC Glucose 133 H 158 H Random Glucose Calcium Magnesium Total Bilirubin AST ALT Alkaline Phosphatase Total Protein Albumin Blood Type Blood Type Recheck Antibody Screen MTS Gel Crossmatch Bld Prod Order Comment Microbiology 10/30/18 19:25 Blood - Line Aerobic Blood Culture - Final No growth in 5 days 10/30/18 19:25 Blood - Line Anaerobic Blood Culture - Final No growth in 5 days 10/30/18 19:20 Blood - Line Aerobic Blood Culture - Final No growth in 5 days 10/30/18 19:20 Blood - Line Anaerobic Blood Culture - Final No growth in 5 days - Imaging Impressions Chest X-Ray 11/04/18 11:51 CONCLUSION: Mild interstitial edema, minimal mediastinal prominence. Chest X-Ray 11/05/18 05:00 CONCLUSION: Endotracheal tube no longer seen. No other significant interval change. Assessment and Plan - Assessment (1) Acute respiratory distress Code(s): R06.03 - Acute respiratory distress Status: Acute (2) Pulmonary edema Code(s): J81.1 - Chronic pulmonary edema Status: Acute (3) Aortic stenosis Code(s): I35.0 - Nonrheumatic aortic (valve) stenosis Status: Chronic (4) Aortic insufficiency Code(s): I35.1 - Nonrheumatic aortic (valve) insufficiency Status: Acute (5) Hypokalemia Code(s): E87.6 - Hypokalemia Status: Acute - Plan 73-year-old man with Hx of Severe aortic stenosis Status Post Aortic Valve Replacement 11/04/18 Management per CTS Continue with amiodarone, aspirin, beta-gary Monitor chest tube output PT to treat and eval Acute pulmonary edema-resolved Acute respiratory Failure-resolve Elevated BNP Elevated D-dimer Resolved s/p diuretics therapy Elevated troponin Atherosclerotic vascular disease History of carotid artery disease Elevated BNP Systolic CHF Echocardiogram shows mild systolic CHF Continue aspirin, Lipitor, beta-gary Management per cardiology Seizure disorder NOS Continue carbamazepine Seizure precautions Hyponatremia Not yet improved Follow clinically DVT Prophylaxis SCDs (2) Pulmonary edema Qualifiers: Chronicity: acute Qualified Code(s): J81.0 - Acute pulmonary edema (3) Aortic stenosis Qualifiers: Cardiac valve disease etiology: etiology unspecified Qualified Code(s): I35.0 - Nonrheumatic aortic (valve) stenosis (4) Aortic insufficiency Qualifiers: Cardiac valve disease etiology: etiology unspecified Qualified Code(s): I35.1 - Nonrheumatic aortic (valve) insufficiency
[2018-11-05] MEDS: Sodium Chloride 0.9% 2 ML Flush BID IV.FLUSH SCH (15:15)
[2018-11-05] MEDS: Docusate Sodium 100 MG Capsule PO SCH (20:35)
--- NOTE | 2018-11-06 00:36 | P.PNCA ---
Subjective Interval history: s/p AVR Extubated last night Up to the chair, doing well Ambulating Medications and Allergies Active Medications: Active Medications Acetaminophen (Tylenol) 650 mg PO Q6H PRN PRN Reason: Fever >101f Hydrocodone Bitart/Acetaminophen ([place] 5/325) 1 tab PO Q4H PRN PRN Reason: PAIN SCALE 1 TO 5 Last Admin: 11/05/18 20:32 Dose: 1 tab Al Hydroxide/Mg Hydroxide (Milk Of Magnesia Liq) 30 ml PO Q12H PRN PRN Reason: Mild Constipation Al Hydroxide/Mg Hydroxide (Milk Of Magnesia Liq) 30 ml PO DAILY [facility] Last Admin: 11/05/18 09:36 Dose: 30 ml Albuterol (Albuterol Neb (Prn)) 2.5 mg NEB Q2HR NEB PRN PRN Reason: SHORTNESS OF BREATH/WHEEZING Albuterol (Duoneb Neb (Prn)) 1 ampul NEB Q2HR NEB PRN PRN Reason: WHEEZING Albuterol (Duoneb Neb (Lakshmi)) 1 ampul NEB Q6HR WHILE AWAKE NEB [facility] Stop: 11/07/18 13:59 Last Admin: 11/05/18 20:44 Dose: 1 ampul Amiodarone HCl (Cordarone) 400 mg PO Q8HR [facility] Last Admin: 11/05/18 23:04 Dose: 400 mg Aspirin (Aspirin Chew) 81 mg PO DAILY [facility] Last Admin: 11/05/18 09:36 Dose: 81 mg Atorvastatin Calcium (Lipitor) 40 mg PO HS [facility] Last Admin: 11/05/18 20:31 Dose: 40 mg Bisacodyl (Dulcolax Supp) 10 mg RECTAL DAILY PRN PRN Reason: SEVERE CONSITIPATION Bisacodyl (Dulcolax Supp) 10 mg RECTAL PRN PRN PRN Reason: SEE LABEL COMMENTS Carbamazepine (Tegretol) 600 mg PO BID [facility] Last Admin: 11/05/18 20:33 Dose: 600 mg Chlorhexidine Gluconate (Hibiclens 4% Topical) 1 applicatio [employer]ICAL [employer] [facility] Stop: 11/07/18 14:27 Sodium Chloride 500 ml/ (Cefazolin Sodium 500 mg) 0 ml IRRIGATION C[employer] [facility] Stop: 11/07/18 14:29 Dextrose (D50w Vial) 50 ml IV.PUSH UNSCH PRN PRN Reason: PER HYPOGLYCEMIA PROTOCOL Docusate Sodium (Colace) 100 mg PO BID [facility] Last Admin: 11/05/18 20:35 Dose: 100 mg Fentanyl Citrate (Fentanyl Inj) 25 mcg IV.PUSH Q1H PRN PRN Reason: BREAKTHROUGH PAIN Last Admin: 11/05/18 23:09 Dose: 25 mcg Glucagon (Glucagon Inj) 1 mg OTHER PRN PRN PRN Reason: For hypoglycemia Magnesium Sulfate 4 gm/ Sodium (Chloride) 100 mls @ 50 mls/hr IV.SIG UNSCH PRN PRN Reason: For Magnesium 0.9 - 1.1 mg/dL Magnesium Sulfate 2 gm/ Sodium (Chloride) 100 mls @ 50 mls/hr IV.SIG UNSCH PRN PRN Reason: For Magnesium 1.2 - 1.6 mg/dL Potassium Chloride (Kcl 40 Meq Premix Inj) 40 meq in 100 mls @ 25 mls/hr IV.SIG Q2H PRN PRN Reason: For Potassium 2.8 - 3.2 mEq/L Potassium Chloride (Kcl 20 Meq Premix Inj) 20 meq in 100 mls @ 50 mls/hr IV.SIG Q2H PRN PRN Reason: For Potassium 3.3 - 3.5 mEq/L Potassium Chloride (Kcl 20 Meq Premix Inj) 20 meq in 100 mls @ 50 mls/hr IV.SIG Q2H PRN PRN Reason: For Potassium 2.8 - 3.2 mEq/L Last Infusion: 11/01/18 21:04 Dose: Infused Potassium Phosphate 30 mmol/ (Sodium Chloride) 260 mls @ 42 mls/hr IV.SIG UNSCH PRN PRN Reason: SEE LABEL COMMENTS Sodium Phosphate 30 mmol/ (Sodium Chloride) 260 mls @ 42 mls/hr IV.SIG UNSCH PRN PRN Reason: For Phosphorus < 2.5 mg/dL Potassium Chloride (Kcl 40 Meq Premix Inj) 40 meq in 100 mls @ 25 mls/hr IV.SIG UNSCH PRN PRN Reason: For Potassium 3.3 - 3.5 mEq/L Cefazolin Sodium/Dextrose (Ancef 2 Gm Premix Inj) 2 gm in 50 mls @ 100 mls/hr IV.SIG [employer] [facility] Stop: 11/07/18 14:59 Cefazolin Sodium/Dextrose (Ancef 1 Gm Premix Inj) 1 gm in 50 mls @ 100 mls/hr IV.SIG Q8H [facility] Stop: 11/06/18 04:29 Last Infusion: 11/05/18 21:10 Dose: Infused Insulin Aspart (Novolog Insulin Correctional Sugar Inj) 0 unit SQ 02,06,10,14, 18,22 [facility]; Protocol Stop: 11/06/18 09:59 Last Admin: 11/05/18 23:03 Dose: Not Given Insulin Aspart (Novolog Insulin Correctional Sugar Inj) 0 unit SQ ACHS [facility]; Protocol Labetalol HCl (Trandate Inj) 10 mg IV.PUSH Q1H PRN PRN Reason: Sbp>165, Dbp>90, Hr>65 Lactulose (Lactulose Liq) 30 ml PO DAILY PRN PRN Reason: SEVERE CONSITIPATION Magnesium Oxide (Mag-Ox) 800 mg PO UNSCH PRN PRN Reason: For Magnesium 1.2 - 1.6 mg/dL Metoprolol Tartrate (Lopressor) 12.5 mg PO [employer] [facility] Stop: 11/07/18 14:29 Metoprolol Tartrate (Lopressor) 12.5 mg PO BID [facility] Last Admin: 11/05/18 20:37 Dose: 12.5 mg Multivitamins/Minerals (Theragran-M) 1 tab PO DAILY [facility] Last Admin: 11/05/18 09:39 Dose: 1 tab Ondansetron HCl (Zofran Inj) 4 mg IV.PUSH Q6H PRN PRN Reason: NAUSEA OR VOMITING Pantoprazole Sodium (Protonix Inj) 40 mg IV.PUSH DAILY [facility] Last Admin: 11/05/18 09:36 Dose: 40 mg Polyethylene Glycol (Miralax) 17 gm PO DAILY [facility] Potassium Bicarb/Potassium Chloride (K-Lyte Cl Eff) 50 meq PO UNSCH PRN PRN Reason: For Potassium 3.3 - 3.5 mEq/L Potassium Chloride (K-Dur) 20 meq PO BID [facility] Last Admin: 11/05/18 20:32 Dose: 20 meq Potassium Phosphate (K-Phos Original) 2,000 mg PO Q4H PRN PRN Reason: Phosphorus Less Than 2.5 mg/dL Potassium Phosphate (K-Phos Original) 2,000 mg PO UNSCH PRN PRN Reason: SEE LABEL COMMENTS Senna/Docusate Sodium (Sinai-Colace) 1 tab PO BID [facility] Last Admin: 11/05/18 20:37 Dose: 1 tab Sennosides (Senokot) 17.2 mg PO Q12H PRN PRN Reason: Moderate Constipation Sennosides (Senokot) 8.6 mg PO HS [facility] Last Admin: 11/05/18 20:35 Dose: 8.6 mg Sodium Biphosphate/Sodium Phosphate (Fleets Enema (Adult)) 118 ml RECTAL UNSCH PRN PRN Reason: SEE LABEL COMMENTS Sodium Chloride (Ns Flush) 2 ml IV.FLUSH BID [facility] Last Admin: 11/05/18 20:37 Dose: 2 ml Sodium Chloride (Ns Flush) 2 ml IV.FLUSH PRN PRN PRN Reason: FLUSH AFTER USING IV ACCESS Allergies Allergy/AdvReac Type Severity Reaction Status Date / Time No Known Allergies Allergy Verified 10/30/18 18:40 Home Medications Medication Instructions Recorded Confirmed Type carbamazepine 600 mg PO BID 11/05/18 11/05/18 History Physical Exam Vital signs: Vital Signs 11/05/18 03:00 11/05/18 07:00 11/05/18 07:46 Temperature 98.5 F Pulse Rate 91 H 83 Respiratory Rate 14 Blood Pressure 149/78 H Pulse Oximetry 97 96 11/05/18 07:52 11/05/18 08:24 11/05/18 08:25 Temperature Pulse Rate Respiratory Rate 12 12 Blood Pressure Pulse Oximetry 97 11/05/18 08:26 11/05/18 11:00 11/05/18 12:20 Temperature 97.4 F L Pulse Rate 83 83 Respiratory Rate 12 14 17 Blood Pressure 132/74 139/74 Pulse Oximetry 99 99 11/05/18 13:25 11/05/18 15:04 11/05/18 15:12 Temperature 98.2 F Pulse Rate 86 80 80 Respiratory Rate 17 17 Blood Pressure 133/67 Pulse Oximetry 98 11/05/18 16:00 11/05/18 18:11 11/05/18 20:45 Temperature 98.2 F Pulse Rate 80 Respiratory Rate 17 Blood Pressure 133/67 Pulse Oximetry 98 98 97 11/05/18 20:46 11/05/18 21:10 Temperature Pulse Rate 69 Respiratory Rate 20 16 Blood Pressure Pulse Oximetry 97 Intake & Output 11/05/18 11/05/18 11/06/18 06:59 18:59 06:59 Intake Total 630 / 630 1211 / 1211 50 / 50 Output Total 670 / 670 300 / 300 Balance -40 / -40 911 / 911 50 / 50 Weight 140 kg Intake: IV 150 / 150 211 / 211 50 / 50 Precedex Inj 200 MCG In NS Inj 0 / 0 48 ML @ 0.2 MCG/KG/HR 5 mls/hr IV.CONT TITRATE PRN Rx#: [id number] NovoLIN R (IV Infusion) 100 11 / 11 UNIT In NS Inj 99 ML @ 3 UNITS/ HR 3 mls/hr IV.CONT TITRATE PRN Rx#:[id number] Ofirmev Inj 1,000 mg In 100 ml 100 / 100 100 / 100 @ 400 mls/hr IV.SIG Q6H [facility]SHMI Rx# :[id number] Ancef 1 GM Premix Inj 1 gm In 50 / 50 100 / 100 50 / 50 50 ml @ 100 mls/hr IV.SIG Q8H LAKSHMI Rx#:[id number] Oral 480 / 480 1000 / 1000 Output: Urine 200 / 200 Urine Amount (Catheter) 470 / 470 Indwelling Temp Sensing 470 / 470 Catheter Chest Tube Drainage 200 / 200 100 / 100 #1Y and #2Y Pleural/Mediastinal 200 / 200 100 / 100 Other: # Voids 1 Date of Last Bowel Movement 11/03/18 11/03/18 # Bowel Movements 0 Narrative: GENERAL: NAD SKIN: Warm and dry. HEAD: Atraumatic. Normocephalic. EYES: Pupils equal and round. No scleral icterus. No injection or drainage. ENT: No nasal bleeding or discharge. Mucous membranes pink and moist. NECK: Trachea midline. No JVD. CARDIOVASCULAR: Regular rate and rhythm. s/p AVR ; chest tube in place RESPIRATORY: No accessory muscle use. Clear to auscultation. Breath sounds equal bilaterally. GASTROINTESTINAL: Abdomen soft, non-tender, nondistended. Hepatic and splenic margins not palpable. MUSCULOSKELETAL: Extremities without clubbing, cyanosis, or edema. No obvious deformities. NEUROLOGICAL: Awake and alert. No obvious cranial nerve deficits. Motor grossly within normal limits. Five out of 5 muscle strength in the arms and legs. Normal speech. PSYCHIATRIC: Appropriate mood and affect; insight and judgment normal. - Urinary Catheter Management Indwelling Temp Sensing Catheter Cath placed during this visit: yes, but has since been removed by the nurse Urethral indwelling: No Reason for continuing: Decision to DC catheter Insertion date: 11/04/18 Insertion time: 07:40 Removal date: 11/05/18 Removal time: 06:00 Results 11/05/18 05:05 11/05/18 05:05 Cardiac Enzymes 11/04/18 11/05/18 Range/Units 04:03 05:05 AST 21 52 H (15-37) U/L CBC 11/04/18 11/05/18 Range/Units 04:03 05:05 WBC 5.0 11.4 H (4.0-11.0) th/mm3 RBC 3.85 L 3.78 L (4.50-5.90) mil/mm3 Hgb 12.5 L 12.4 L (13.0-17.0) gm/dL Hct 35.5 L 35.8 L (39.0-51.0) % Plt Count 187 153 (150-450) th/mm3 Neut # (Auto) 2.8 8.5 H (1.8-7.7) th/mm3 Lymph # (Auto) 1.1 1.0 (1.0-4.8) th/mm3 [place] # (Auto) 0.6 1.9 H (0.0-0.9) th/mm3 Eos # (Auto) 0.4 0.0 (0.0-0.4) th/mm3 Baso # (Auto) 0.1 0.0 (0.0-0.2) th/mm3 Comprehensive Metabolic Panel 11/04/18 11/05/18 Range/Units 04:03 05:05 Sodium 128 L 128 L (136-145) meq/L Potassium 4.1 5.2 H D (3.5-5.1) meq/L Chloride 92 L 97 L (98-107) meq/L Carbon Dioxide 26.7 23.4 (21.0-32.0) meq/L BUN 16 27 H (7-18) mg/dL Creatinine 0.85 1.00 (0.60-1.30) mg/dL Calcium 8.1 L 8.3 L (8.5-10.1) mg/dL AST 21 52 H (15-37) U/L ALT 21 21 (12-78) U/L Alkaline Phosphatase 74 64 (45-117) U/L Total Protein 6.1 L 5.7 L (6.4-8.2) g/dL Albumin 3.3 L 3.2 L (3.4-5.0) g/dL Intake and Output 11/05/18 11/05/18 11/06/18 14:59 22:59 06:59 Intake Total 1050 / 1050 Output Total 300 / 300 Balance 750 / 750 Intake: IV 50 / 50 Precedex Inj 200 MCG In NS Inj 0 / 0 48 ML @ 0.2 MCG/KG/HR 5 mls/hr IV.CONT TITRATE PRN Rx#: [id number] NovoLIN R (IV Infusion) 100 UNIT In NS Inj 99 ML @ 3 UNITS/ HR 3 mls/hr IV.CONT TITRATE PRN Rx#:[id number] Ofirmev Inj 1,000 mg In 100 ml 100 / 100 @ 400 mls/hr IV.SIG Q6H L[facility]SHMI Rx# :[id number] Ancef 1 GM Premix Inj 1 gm In 100 / 100 50 / 50 50 ml @ 100 mls/hr IV.SIG Q8H LAKSHMI Rx#:[id number] Oral 1000 / 1000 Output: Urine 200 / 200 Chest Tube Drainage 100 / 100 #1Y and #2Y Pleural/Mediastinal 100 / 100 Other: # Voids 1 Date of Last Bowel Movement 11/03/18 # Bowel Movements 0 - Imaging and Cardiology Imaging: Impressions Chest X-Ray 11/04/18 11:51 CONCLUSION: Mild interstitial edema, minimal mediastinal prominence. Chest X-Ray 11/05/18 05:00 CONCLUSION: Endotracheal tube no longer seen. No other significant interval change. Assessment and Plan - Assessment (1) Acute respiratory distress Code(s): R06.03 - Acute respiratory distress Status: Acute (2) Pulmonary edema Code(s): J81.1 - Chronic pulmonary edema Status: Acute (3) Aortic stenosis Code(s): I35.0 - Nonrheumatic aortic (valve) stenosis Status: Chronic (4) Aortic insufficiency Code(s): I35.1 - Nonrheumatic aortic (valve) insufficiency Status: Acute (5) Hypokalemia Code(s): E87.6 - Hypokalemia Status: Acute - Plan 1) Acute respiratory distress/pulmonary edema/acute heart failure Due to severe EF 40-45% 2) Severe by cath s/p 23mm bioprosthetic AVR 3) Mild MS by cath Mean gradient 4mmHG at a heart rate of 88 bpm 4) Diuresed well from RHC numbers 5) Plan to move out of ICU 6) Chest tubes possibly out tomorrow (2) Pulmonary edema Qualifiers: Chronicity: acute Qualified Code(s): J81.0 - Acute pulmonary edema (3) Aortic stenosis Qualifiers: Cardiac valve disease etiology: etiology unspecified Qualified Code(s): I35.0 - Nonrheumatic aortic (valve) stenosis (4) Aortic insufficiency Qualifiers: Cardiac valve disease etiology: etiology unspecified Qualified Code(s): I35.1 - Nonrheumatic aortic (valve) insufficiency
[2018-11-06] MEDS: ceFAZolin 1 GM Premix Inj 1 GM/50 ML PIGGYBACK IV.SIG SCH (03:09)
[2018-11-06 05:23] LABS: Baso % (Auto) 0.3 % (0.0-2.0); Eos # (Auto) 0.1 th/mm3 (0.0-0.4); Eos % (Auto) 1.1 % (0.0-4.0); Hematocrit 28.8 % (39.0-51.0); Hemoglobin 10.5 gm/dL (13.0-17.0); Lymph # (Auto) 1.2 th/mm3 (1.0-4.8); Lymph % (Auto) 12.2 % (9.0-44.0); Mean Corpuscular Hemoglobin 33.5 pg (27.0-34.0); Mean Corpuscular Volume 91.8 fL (80.0-100.0); Mean Platelet Volume 7.6 fL (7.0-11.0); Mono # (Auto) 1.7 th/mm3 (0.0-0.9); Mono % (Auto) 17.2 % (0.0-8.0); Neut # (Auto) 6.6 th/mm3 (1.8-7.7); Neut % (Auto) 69.2 % (16.0-70.0); Platelet Count 118 th/mm3 (150-450); Red Blood Count 3.13 mil/mm3 (4.50-5.90); Red Cell Distribution Width 13.1 % (11.6-17.2); White Blood Count 9.6 th/mm3 (4.0-11.0)
[2018-11-06 05:26] LABS: Mean Corpuscular HGB Conc 36.4 % (32.0-36.0)
[2018-11-06 05:45] LABS: Anion Gap 7 meq/L (5-15); Blood Urea Nitrogen 29 mg/dL (7-18); Calcium 7.6 mg/dL (8.5-10.1); Carbon Dioxide 26.4 meq/L (21.0-32.0); Chloride 96 meq/L (98-107); Glomerular Filtration Rate Greater Than 89 mL/min (>89); Glucose,Random 110 mg/dL (74-106); Magnesium 2.3 mg/dL (1.5-2.5); Potassium 5.1 meq/L (3.5-5.1); Sodium 129 meq/L (136-145)
[2018-11-06] MEDS: Insulin NovoLOG Aspart Correctional Sugar Inj SQ SCH ×5 (06:12→21:31)
[2018-11-06] MEDS: Amiodarone 200 MG Tablet PO SCH ×3 (06:40→21:31)
[2018-11-06 06:47] LABS: Platelet Morphology Normal (Normal)
[2018-11-06] MEDS: Polyethylene Glycol 3350 17 GM Packet PO SCH (09:12)
[2018-11-06] MEDS: Multivitamin/Minerals Therapeutic Tablet PO SCH (09:13)
[2018-11-06] MEDS: Senna/Docusate Sodium 8.6/50 MG Tablet PO SCH ×2 (09:14→20:19)
[2018-11-06] MEDS: Pantoprazole Inj 40 MG Vial IV.PUSH SCH (09:14)
[2018-11-06] MEDS: Metoprolol Tartrate 25 MG Tablet PO SCH ×2 (09:14→20:19)
[2018-11-06] MEDS: carBAMazepine 200 MG Tablet PO SCH ×2 (09:14→20:18)
[2018-11-06] MEDS: Docusate Sodium 100 MG Capsule PO SCH ×2 (09:15→21:31)
--- NOTE | 2018-11-06 10:22 | P.PN ---
Subjective Interval history: Follow-up severe aortic stenosis status post aortic valve replacement November 05, 2018-patient seen and examined, no significant anterior chest pain. Vitals stable. November 06, 2018-patient seen and examined, no acute event overnight. Stated ambulates couple times yesterday. Currently afebrile. Physical Exam Vital signs: Vital Signs 11/05/18 11:00 11/05/18 12:20 11/05/18 13:25 Temperature 97.4 F L Pulse Rate 83 83 86 Respiratory Rate 14 17 17 Blood Pressure 132/74 139/74 Pulse Oximetry 99 99 11/05/18 15:04 11/05/18 15:12 11/05/18 16:00 Temperature 98.2 F 98.2 F Pulse Rate 80 80 80 Respiratory Rate 17 17 Blood Pressure 133/67 133/67 Pulse Oximetry 98 98 11/05/18 18:11 11/05/18 19:00 11/05/18 20:00 Temperature 99.1 F Pulse Rate 88 88 Respiratory Rate 16 Blood Pressure 125/61 Pulse Oximetry 98 11/05/18 20:45 11/05/18 20:46 11/05/18 21:00 Temperature Pulse Rate 69 86 Respiratory Rate 20 Blood Pressure Pulse Oximetry 97 97 11/05/18 21:10 11/05/18 22:00 11/05/18 23:00 Temperature Pulse Rate 80 85 Respiratory Rate 16 Blood Pressure Pulse Oximetry 11/05/18 23:39 11/06/18 00:00 11/06/18 01:00 Temperature 99.6 F Pulse Rate 83 78 Respiratory Rate 16 16 Blood Pressure 130/61 Pulse Oximetry 99 11/06/18 03:00 11/06/18 04:00 11/06/18 05:00 Temperature Pulse Rate 77 78 78 Respiratory Rate 16 Blood Pressure Pulse Oximetry 11/06/18 08:14 11/06/18 08:42 Temperature Pulse Rate 82 Respiratory Rate 16 18 Blood Pressure Pulse Oximetry 95 Intake & Output 11/05/18 11/06/18 11/06/18 18:59 06:59 18:59 Intake Total 1211 / 1211 730 / 730 5850 / 5850 Output Total 300 / 300 480 / 480 Balance 911 / 911 250 / 250 5850 / 5850 Weight 110 kg Intake: IV 211 / 211 50 / 50 5850 / 5850 Precedex Inj 200 MCG In NS Inj 0 / 0 48 ML @ 0.2 MCG/KG/HR 5 mls/hr IV.CONT TITRATE PRN Rx#: [id number] NovoLIN R (IV Infusion) 100 / UNIT In NS Inj 99 ML @ 3 UNITS/ HR 3 mls/hr IV.CONT TITRATE PRN Rx#:[id number] Ofirmev Inj 1,000 mg In 100 ml 100 / 100 @ 400 mls/hr IV.SIG Q6H [facility] Rx# :[id number] Ancef 1 GM Premix Inj 1 gm In 100 / 100 50 / 50 100 / 100 50 ml @ 100 mls/hr IV.SIG Q8H [facility] Rx#:[id number] Oral 1000 / 1000 680 / 680 Output: Urine 200 / 200 400 / 400 Chest Tube Drainage 100 / 100 80 / 80 #1Y and #2Y Pleural/Mediastinal 100 / 100 80 / 80 Other: # Voids 1 Date of Last Bowel Movement 11/03/18 11/03/18 # Bowel Movements 0 0 Narrative: GENERAL: NAD SKIN: Warm and dry. HEAD: Atraumatic. Normocephalic. EYES: Pupils equal and round. No scleral icterus. No injection or drainage. ENT: No nasal bleeding or discharge. Mucous membranes pink and moist. NECK: Trachea midline. No JVD. CARDIOVASCULAR: Regular rate and rhythm. s/p AVR ; chest tube in place RESPIRATORY: No accessory muscle use. Clear to auscultation. Breath sounds equal bilaterally. GASTROINTESTINAL: Abdomen soft, non-tender, nondistended. Hepatic and splenic margins not palpable. MUSCULOSKELETAL: Extremities without clubbing, cyanosis, or edema. No obvious deformities. NEUROLOGICAL: Awake and alert. No obvious cranial nerve deficits. Motor grossly within normal limits. Five out of 5 muscle strength in the arms and legs. Normal speech. PSYCHIATRIC: Appropriate mood and affect; insight and judgment normal. - Urinary Catheter Management Indwelling Temp Sensing Catheter Cath placed during this visit: yes, but has since been removed by the nurse Urethral indwelling: No Reason for continuing: Decision to DC catheter Insertion date: 11/04/18 Insertion time: 07:40 Removal date: 11/05/18 Removal time: 06:00 Results - Labs CBC & Chem 7: 11/06/18 04:41 11/06/18 04:41 Laboratory Results - last 24 hr 11/03/18 11/05/1811/05/18 04:20 13:14 17:56 WBC RBC Hgb Hct MCV MCH MCHC RDW Plt Count MPV Prelim Diff (Auto) Neut % (Auto) Lymph % (Auto) [place] % (Auto) Eos % (Auto) Baso % (Auto) Neut # (Auto) Lymph # (Auto) [place] # (Auto) Eos # (Auto) Baso # (Auto) WBC Differential Diff Scan Differential Comment Platelet Estimate Platelet Morphology Basophilic Stippling Sodium Potassium Chloride Carbon Dioxide Anion Gap BUN Creatinine Estimated GFR POC Glucose 187 H 208 H Random Glucose Calcium Magnesium MTS Gel Crossmatch See Detail 11/05/18 11/06/18 11/06/18 20:54 04:33 04:41 WBC 9.6 RBC 3.13 L Hgb 10.5 L Hct 28.8 L MCV 91.8 MCH 33.5 MCHC 36.4 H RDW 13.1 Plt Count 118 L MPV 7.6 Prelim Diff (Auto) Slide review pending Neut % (Auto) 69.2 Lymph % (Auto) 12.2 [place] % (Auto) 17.2 H Eos % (Auto) 1.1 Baso % (Auto) 0.3 Neut # (Auto) 6.6 Lymph # (Auto) 1.2 [place] # (Auto) 1.7 H Eos # (Auto) 0.1 Baso # (Auto) 0.0 WBC Differential . Diff Scan Auto diff confirmed Differential Comment . Platelet Estimate Low L Platelet Morphology Normal Basophilic Stippling Faint H Sodium Potassium Chloride Carbon Dioxide Anion Gap BUN Creatinine Estimated GFR POC Glucose 96 122 H Random Glucose Calcium Magnesium MTS Gel Crossmatch 11/06/18 11/06/18 04:41 08:10 WBC RBC Hgb Hct MCV MCH MCHC RDW Plt Count MPV Prelim Diff (Auto) Neut % (Auto) Lymph % (Auto) [place] % (Auto) Eos % (Auto) Baso % (Auto) Neut # (Auto) Lymph # (Auto) [place] # (Auto) Eos # (Auto) Baso # (Auto) WBC Differential Diff Scan Differential Comment Platelet Estimate Platelet Morphology Basophilic Stippling Sodium 129 L Potassium 5.1 Chloride 96 L Carbon Dioxide 26.4 Anion Gap 7 BUN 29 H Creatinine 0.82 Estimated GFR Greater than 89 POC Glucose 125 H Random Glucose 110 H Calcium 7.6 L Magnesium 2.3 MTS Gel Crossmatch Assessment and Plan - Assessment (1) Acute respiratory distress Code(s): R06.03 - Acute respiratory distress Status: Acute (2) Pulmonary edema Code(s): J81.1 - Chronic pulmonary edema Status: Acute (3) Aortic stenosis Code(s): I35.0 - Nonrheumatic aortic (valve) stenosis Status: Chronic (4) Aortic insufficiency Code(s): I35.1 - Nonrheumatic aortic (valve) insufficiency Status: Acute (5) Hypokalemia Code(s): E87.6 - Hypokalemia Status: Acute - Plan 73-year-old man with Hx of Severe aortic stenosis Status Post Aortic Valve Replacement 11/04/18 Management per CTS Continue with amiodarone, aspirin, beta-gary Monitor chest tube output, likely chest tube removal today PT to treat and eval Acute pulmonary edema-resolved Acute respiratory Failure-resolve Elevated BNP Elevated D-dimer Resolved s/p diuretics therapy Elevated troponin Atherosclerotic vascular disease History of carotid artery disease Elevated BNP Systolic CHF Echocardiogram shows mild systolic CHF Continue aspirin, Lipitor, beta-gary Management per cardiology Seizure disorder NOS Continue carbamazepine Seizure precautions Hyponatremia Not yet improved Follow clinically DVT Prophylaxis SCDs (2) Pulmonary edema Qualifiers: Chronicity: acute Qualified Code(s): J81.0 - Acute pulmonary edema (3) Aortic stenosis Qualifiers: Cardiac valve disease etiology: etiology unspecified Qualified Code(s): I35.0 - Nonrheumatic aortic (valve) stenosis (4) Aortic insufficiency Qualifiers: Cardiac valve disease etiology: etiology unspecified Qualified Code(s): I35.1 - Nonrheumatic aortic (valve) insufficiency
--- NOTE | 2018-11-06 14:51 | P.PNCV ---
- Note CVT: Post Op Day #: 2 Subjective/Hospital Course: 73-year-old male patient of Dr. Granado presented to [facility] due to shortness of breath. He presented with dyspnea and acute CHF. During these episodes, he did have some chest heaviness. He had a recent echocardiogram showing [id number] aortic stenosis with a mean gradient of 46, a normal ejection fraction and moderate aortic regurgitation. His ECHO on this admission shows decreased EF at ~45% with moderate to severe and moderate AI. LHC/RHC today shows no significant CAD. He is being considered for AVR. 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 Postoperative Diagnosis: same Date of procedure: 11/04/18 Procedure: AVR with a 23 Wang Magna Ease tissue valve HERNANDO Implants: 23 Magna ease tissue valve extubated after surgery 11/05 +1400cc/ eval for diuresis later today will need to be up in chair, ambulated pulm toileting, nebs ezpap , acapella eval for transfer to stepdown on ASA, Amiodarone, start low dose BB 11/06/18 No complaints, doing well Objective: Vital Signs - 24 hr 11/05/18 15:04 11/05/18 15:12 11/05/18 16:00 Temperature 98.2 F 98.2 F Pulse Rate 80 80 80 Respiratory Rate 17 17 Blood Pressure 133/67 133/67 Pulse Oximetry 98 98 11/05/18 18:11 11/05/18 19:00 11/05/18 20:00 Temperature 99.1 F Pulse Rate 88 88 Respiratory Rate 16 Blood Pressure 125/61 Pulse Oximetry 98 11/05/18 20:45 11/05/18 20:46 11/05/18 21:00 Temperature Pulse Rate 69 86 Respiratory Rate 20 Blood Pressure Pulse Oximetry 97 97 11/05/18 21:10 11/05/18 22:00 11/05/18 23:00 Temperature Pulse Rate 80 85 Respiratory Rate 16 Blood Pressure Pulse Oximetry 11/05/18 23:39 11/06/18 00:00 11/06/18 01:00 Temperature 99.6 F Pulse Rate 83 78 Respiratory Rate 16 16 Blood Pressure 130/61 Pulse Oximetry 99 11/06/18 03:00 11/06/18 04:00 11/06/18 05:00 Temperature Pulse Rate 77 78 78 Respiratory Rate 16 Blood Pressure Pulse Oximetry 11/06/18 07:00 11/06/18 08:00 11/06/18 08:14 Temperature 99.1 F Pulse Rate 80 80 82 Respiratory Rate 18 16 Blood Pressure 151/66 H Pulse Oximetry 95 95 11/06/18 08:42 11/06/18 10:00 11/06/18 11:00 Temperature Pulse Rate 87 75 Respiratory Rate 18 Blood Pressure Pulse Oximetry 11/06/18 12:00 11/06/18 13:00 11/06/18 13:35 Temperature 98.9 F Pulse Rate 82 78 Respiratory Rate 18 18 Blood Pressure 154/68 H Pulse Oximetry 98 11/06/18 14:25 Temperature Pulse Rate 82 Respiratory Rate 16 Blood Pressure Pulse Oximetry Labs: Laboratory Results - last 12 hr 11/03/18 11/06/18 11/06/18 04:20 04:33 04:41 WBC 9.6 RBC 3.13 L Hgb 10.5 L Hct 28.8 L MCV 91.8 MCH 33.5 MCHC 36.4 H RDW 13.1 Plt Count 118 L MPV 7.6 Prelim Diff (Auto) Slide review pending Neut % (Auto) 69.2 Lymph % (Auto) 12.2 Stewart % (Auto) 17.2 H Eos % (Auto) 1.1 Baso % (Auto) 0.3 Neut # (Auto) 6.6 Lymph # (Auto) 1.2 Stewart # (Auto) 1.7 H Eos # (Auto) 0.1 Baso # (Auto) 0.0 WBC Differential . Diff Scan Auto diff confirmed Differential Comment . Platelet Estimate Low L Platelet Morphology Normal Basophilic Stippling Faint H Sodium Potassium Chloride Carbon Dioxide Anion Gap BUN Creatinine Estimated GFR POC Glucose 122 H Random Glucose Calcium Magnesium MTS Gel Crossmatch See Detail 11/06/18 11/06/18 11/06/18 04:41 08:10 12:23 WBC RBC Hgb Hct MCV MCH MCHC RDW Plt Count MPV Prelim Diff (Auto) Neut % (Auto) Lymph % (Auto) Stewart % (Auto) Eos % (Auto) Baso % (Auto) Neut # (Auto) Lymph # (Auto) Stewart # (Auto) Eos # (Auto) Baso # (Auto) WBC Differential Diff Scan Differential Comment Platelet Estimate Platelet Morphology Basophilic Stippling Sodium 129 L Potassium 5.1 Chloride 96 L Carbon Dioxide 26.4 Anion Gap 7 BUN 29 H Creatinine 0.82 Estimated GFR Greater than 89 POC Glucose 125 H 118 H Random Glucose 110 H Calcium 7.6 L Magnesium 2.3 MTS Gel Crossmatch Result Diagrams: 11/06/18 04:41 11/06/18 04:41 Imaging: Chest CTA 10/30/18 19:34 CONCLUSION: 1. Bilateral alveolar opacities again noted most characteristic of pulmonary edema. 2. Small to moderate bilateral pleural effusions. 3. No evidence of pulmonary emboli. 4. Coronary artery calcifications. Venous Doppler Study 10/31/18 00:00 CONCLUSION: No venous thrombosis is identified within either lower extremity. Carotid Doppler Study 11/01/18 14:27 CONCLUSION: 1. Right Internal Carotid Artery: Findings indicate <50% stenosis. 2. Left Internal Carotid Artery: Findings indicate <50% stenosis. Chest X-Ray 11/05/18 05:00 CONCLUSION: Endotracheal tube no longer seen. No other significant interval change. Cardiovascular: RRR Telemetry: NSR Pulmonary: CTA GI/: NABS, NT Incision: dry and intact - Plan (1) Seizure disorder Plan: on tegretol (2) Aortic stenosis (3) Combined systolic and diastolic congestive heart failure Plan: eval for gentle diuresis EF 45% (4) S/P AVR Plan: ON ASA, amiodarone , low dose BB OOB, ambulate transfer to stepdown unit PT CM to eval for HHC Remove chest tubes Diurese Encourage ambulation Stim BM D/C planning (2) Aortic stenosis Qualifiers: Cardiac valve disease etiology: etiology unspecified Qualified Code(s): I35.0 - Nonrheumatic aortic (valve) stenosis (3) Combined systolic and diastolic congestive heart failure Qualifiers: Heart failure chronicity: acute on chronic Qualified Code(s): I50.43 - Acute on chronic combined systolic (congestive) and diastolic (congestive) heart failure
--- NOTE | 2018-11-06 23:21 | P.PNCA ---
Subjective Interval history: Doing well, no complaints Chest tubes out Medications and Allergies Active Medications: Active Medications Acetaminophen (Tylenol) 650 mg PO Q6H PRN PRN Reason: Fever >101f Hydrocodone Bitart/Acetaminophen (Rico 5/325) 1 tab PO Q4H PRN PRN Reason: PAIN SCALE 1 TO 5 Last Admin: 11/06/18 12:26 Dose: 1 tab Al Hydroxide/Mg Hydroxide (Milk Of Magnesia Liq) 30 ml PO Q12H PRN PRN Reason: Mild Constipation Al Hydroxide/Mg Hydroxide (Milk Of Magnesia Liq) 30 ml PO DAILY [facility] Last Admin: 11/06/18 09:11 Dose: 30 ml Albuterol (Albuterol Neb (Prn)) 2.5 mg NEB Q2HR NEB PRN PRN Reason: SHORTNESS OF BREATH/WHEEZING Albuterol (Duoneb Neb (Prn)) 1 ampul NEB Q2HR NEB PRN PRN Reason: WHEEZING Albuterol (Duoneb Neb (Lakshmi)) 1 ampul NEB Q6HR WHILE AWAKE NEB [facility] Stop: 11/07/18 13:59 Last Admin: 11/06/18 20:52 Dose: Not Given Amiodarone HCl (Cordarone) 400 mg PO Q8HR [facility] Last Admin: 11/06/18 21:31 Dose: 400 mg Aspirin (Aspirin Chew) 81 mg PO DAILY [facility] Last Admin: 11/06/18 09:13 Dose: 81 mg Atorvastatin Calcium (Lipitor) 40 mg PO HS [facility] Last Admin: 11/06/18 20:18 Dose: 40 mg Bisacodyl (Dulcolax Supp) 10 mg RECTAL DAILY PRN PRN Reason: SEVERE CONSITIPATION Bisacodyl (Dulcolax Supp) 10 mg RECTAL PRN PRN PRN Reason: SEE LABEL COMMENTS Carbamazepine (Tegretol) 600 mg PO BID [facility] Last Admin: 11/06/18 20:18 Dose: 600 mg Chlorhexidine Gluconate (Hibiclens 4% Topical) 1 applicatio TOPICAL PULP DRIER FIRER [facility] Stop: 11/07/18 14:27 Sodium Chloride 500 ml/ (Cefazolin Sodium 500 mg) 0 ml IRRIGATION PULP DRIER FIRER [facility] Stop: 11/07/18 14:29 Dextrose (D50w Vial) 50 ml IV.PUSH UNSCH PRN PRN Reason: PER HYPOGLYCEMIA PROTOCOL Docusate Sodium (Colace) 100 mg PO BID [facility] Last Admin: 11/06/18 21:31 Dose: 100 mg Fentanyl Citrate (Fentanyl Inj) 25 mcg IV.PUSH Q1H PRN PRN Reason: BREAKTHROUGH PAIN Last Admin: 11/05/18 23:09 Dose: 25 mcg Glucagon (Glucagon Inj) 1 mg OTHER PRN PRN PRN Reason: For hypoglycemia Magnesium Sulfate 4 gm/ Sodium (Chloride) 100 mls @ 50 mls/hr IV.SIG UNSCH PRN PRN Reason: For Magnesium 0.9 - 1.1 mg/dL Magnesium Sulfate 2 gm/ Sodium (Chloride) 100 mls @ 50 mls/hr IV.SIG UNSCH PRN PRN Reason: For Magnesium 1.2 - 1.6 mg/dL Potassium Chloride (Kcl 40 Meq Premix Inj) 40 meq in 100 mls @ 25 mls/hr IV.SIG Q2H PRN PRN Reason: For Potassium 2.8 - 3.2 mEq/L Potassium Chloride (Kcl 20 Meq Premix Inj) 20 meq in 100 mls @ 50 mls/hr IV.SIG Q2H PRN PRN Reason: For Potassium 3.3 - 3.5 mEq/L Potassium Chloride (Kcl 20 Meq Premix Inj) 20 meq in 100 mls @ 50 mls/hr IV.SIG Q2H PRN PRN Reason: For Potassium 2.8 - 3.2 mEq/L Last Infusion: 11/01/18 21:04 Dose: Infused Potassium Phosphate 30 mmol/ (Sodium Chloride) 260 mls @ 42 mls/hr IV.SIG UNSCH PRN PRN Reason: SEE LABEL COMMENTS Sodium Phosphate 30 mmol/ (Sodium Chloride) 260 mls @ 42 mls/hr IV.SIG UNSCH PRN PRN Reason: For Phosphorus < 2.5 mg/dL Potassium Chloride (Kcl 40 Meq Premix Inj) 40 meq in 100 mls @ 25 mls/hr IV.SIG UNSCH PRN PRN Reason: For Potassium 3.3 - 3.5 mEq/L Cefazolin Sodium/Dextrose (Ancef 2 Gm Premix Inj) 2 gm in 50 mls @ 100 mls/hr IV.SIG PULP DRIER FIRER [facility] Stop: 11/07/18 14:59 Insulin Aspart (Novolog Insulin Correctional Sugar Inj) 0 unit SQ ACHS LAKSHMI; Protocol Last Admin: 11/06/18 21:31 Dose: 3 unit Labetalol HCl (Trandate Inj) 10 mg IV.PUSH Q1H PRN PRN Reason: Sbp>165, Dbp>90, Hr>65 Lactulose (Lactulose Liq) 30 ml PO DAILY PRN PRN Reason: SEVERE CONSITIPATION Magnesium Oxide (Mag-Ox) 800 mg PO UNSCH PRN PRN Reason: For Magnesium 1.2 - 1.6 mg/dL Metoprolol Tartrate (Lopressor) 12.5 mg PO PULP DRIER FIRER [facility] Stop: 11/07/18 14:29 Metoprolol Tartrate (Lopressor) 12.5 mg PO BID [facility] Last Admin: 11/06/18 20:19 Dose: 12.5 mg Multivitamins/Minerals (Theragran-M) 1 tab PO DAILY [facility] Last Admin: 11/06/18 09:13 Dose: 1 tab Ondansetron HCl (Zofran Inj) 4 mg IV.PUSH Q6H PRN PRN Reason: NAUSEA OR VOMITING Pantoprazole Sodium (Protonix Inj) 40 mg IV.PUSH DAILY [facility] Last Admin: 11/06/18 09:14 Dose: 40 mg Polyethylene Glycol (Miralax) 17 gm PO DAILY [facility] Last Admin: 11/06/18 09:12 Dose: 17 gm Potassium Bicarb/Potassium Chloride (K-Lyte Cl Eff) 50 meq PO UNSCH PRN PRN Reason: For Potassium 3.3 - 3.5 mEq/L Potassium Chloride (K-Dur) 20 meq PO BID [facility] Last Admin: 11/06/18 20:18 Dose: 20 meq Potassium Phosphate (K-Phos Original) 2,000 mg PO Q4H PRN PRN Reason: Phosphorus Less Than 2.5 mg/dL Potassium Phosphate (K-Phos Original) 2,000 mg PO UNSCH PRN PRN Reason: SEE LABEL COMMENTS Senna/Docusate Sodium (Sinai-Colace) 1 tab PO BID [facility] Last Admin: 11/06/18 20:19 Dose: 1 tab Sennosides (Senokot) 17.2 mg PO Q12H PRN PRN Reason: Moderate Constipation Sennosides (Senokot) 8.6 mg PO HS [facility] Last Admin: 11/06/18 20:18 Dose: 8.6 mg Sodium Biphosphate/Sodium Phosphate (Fleets Enema (Adult)) 118 ml RECTAL UNSCH PRN PRN Reason: SEE LABEL COMMENTS Sodium Chloride (Ns Flush) 2 ml IV.FLUSH BID LAKSHMI Last Admin: 11/06/18 21:34 Dose: 2 ml Sodium Chloride (Ns Flush) 2 ml IV.FLUSH PRN PRN PRN Reason: FLUSH AFTER USING IV ACCESS Allergies Allergy/AdvReac Type Severity Reaction Status Date / Time No Known Allergies Allergy Verified 10/30/18 18:40 Home Medications Medication Instructions Recorded Confirmed Type carbamazepine 600 mg PO BID 11/05/18 11/05/18 History Physical Exam Vital signs: Vital Signs 11/05/18 23:39 11/06/18 00:00 11/06/18 01:00 Temperature 99.6 F Pulse Rate 83 78 Respiratory Rate 16 16 Blood Pressure 130/61 Pulse Oximetry 99 11/06/18 03:00 11/06/18 04:00 11/06/18 05:00 Temperature Pulse Rate 77 78 78 Respiratory Rate 16 Blood Pressure Pulse Oximetry 11/06/18 07:00 11/06/18 08:00 11/06/18 08:14 Temperature 99.1 F Pulse Rate 80 80 82 Respiratory Rate 18 16 Blood Pressure 151/66 H Pulse Oximetry 95 95 11/06/18 08:42 11/06/18 10:00 11/06/18 11:00 Temperature Pulse Rate 87 75 Respiratory Rate 18 Blood Pressure Pulse Oximetry 11/06/18 12:00 11/06/18 13:00 11/06/18 13:35 Temperature 98.9 F Pulse Rate 82 78 Respiratory Rate 18 18 Blood Pressure 154/68 H Pulse Oximetry 98 11/06/18 14:00 11/06/18 14:25 11/06/18 15:00 Temperature Pulse Rate 81 82 82 Respiratory Rate 16 Blood Pressure Pulse Oximetry 11/06/18 16:00 11/06/18 17:00 11/06/18 18:00 Temperature 98.8 F Pulse Rate 79 84 80 Respiratory Rate 18 Blood Pressure 133/62 Pulse Oximetry 95 Intake & Output 11/06/18 11/06/18 11/07/18 06:59 18:59 06:59 Intake Total 730 / 730 6690 / 6690 Output Total 480 / 480 500 / 500 Balance 250 / 250 6190 / 6190 Weight 110 kg Intake: IV 50 / 50 5850 / 5850 Ancef 1 GM Premix Inj 1 gm In 50 / 50 100 / 100 50 ml @ 100 mls/hr IV.SIG Q8H LAKSHMI Rx#:[id number] Oral 680 / 680 840 / 840 Output: Urine 400 / 400 500 / 500 Chest Tube Drainage 80 / 80 #1Y and #2Y Pleural/Mediastinal 80 / 80 Other: Date of Last Bowel Movement 11/03/18 11/03/18 # Bowel Movements 0 Narrative: GENERAL: NAD SKIN: Warm and dry. HEAD: Atraumatic. Normocephalic. EYES: Pupils equal and round. No scleral icterus. No injection or drainage. ENT: No nasal bleeding or discharge. Mucous membranes pink and moist. NECK: Trachea midline. No JVD. CARDIOVASCULAR: Regular rate and rhythm. s/p AVR ; chest tube in place RESPIRATORY: No accessory muscle use. Clear to auscultation. Breath sounds equal bilaterally. GASTROINTESTINAL: Abdomen soft, non-tender, nondistended. Hepatic and splenic margins not palpable. MUSCULOSKELETAL: Extremities without clubbing, cyanosis, or edema. No obvious deformities. NEUROLOGICAL: Awake and alert. No obvious cranial nerve deficits. Motor grossly within normal limits. Five out of 5 muscle strength in the arms and legs. Normal speech. PSYCHIATRIC: Appropriate mood and affect; insight and judgment normal. - Urinary Catheter Management Indwelling Temp Sensing Catheter Cath placed during this visit: yes, but has since been removed by the nurse Urethral indwelling: No Reason for continuing: Decision to DC catheter Insertion date: 11/04/18 Insertion time: 07:40 Removal date: 11/05/18 Removal time: 06:00 Results 11/06/18 04:41 11/06/18 04:41 Cardiac Enzymes 11/05/18 Range/Units 05:05 AST 52 H (15-37) U/L CBC 11/05/18 11/06/18 Range/Units 05:05 04:41 WBC 11.4 H 9.6 (4.0-11.0) th/mm3 RBC 3.78 L 3.13 L (4.50-5.90) mil/mm3 Hgb 12.4 L 10.5 L (13.0-17.0) gm/dL Hct 35.8 L 28.8 L (39.0-51.0) % Plt Count 153 118 L (150-450) th/mm3 Neut # (Auto) 8.5 H 6.6 (1.8-7.7) th/mm3 Lymph # (Auto) 1.0 1.2 (1.0-4.8) th/mm3 [place] # (Auto) 1.9 H 1.7 H (0.0-0.9) th/mm3 Eos # (Auto) 0.0 0.1 (0.0-0.4) th/mm3 Baso # (Auto) 0.0 0.0 (0.0-0.2) th/mm3 Comprehensive Metabolic Panel 11/05/18 11/06/18 Range/Units 05:05 04:41 Sodium 128 L 129 L (136-145) meq/L Potassium 5.2 H D 5.1 (3.5-5.1) meq/L Chloride 97 L 96 L (98-107) meq/L Carbon Dioxide 23.4 26.4 (21.0-32.0) meq/L BUN 27 H 29 H (7-18) mg/dL Creatinine 1.00 0.82 (0.60-1.30) mg/dL Calcium 8.3 L 7.6 L (8.5-10.1) mg/dL AST 52 H (15-37) U/L ALT 21 (12-78) U/L Alkaline Phosphatase 64 (45-117) U/L Total Protein 5.7 L (6.4-8.2) g/dL Albumin 3.2 L (3.4-5.0) g/dL Intake and Output 11/06/18 11/06/18 11/07/18 14:59 22:59 06:59 Intake Total 5850 / 5850 840 / 840 Output Total 500 / 500 Balance 5850 / 5850 340 / 340 Intake: IV 5850 / 5850 Ancef 1 GM Premix Inj 1 gm In 100 / 100 50 ml @ 100 mls/hr IV.SIG Q8H LAKSHMI Rx#:[id number] Oral 840 / 840 Output: Urine 500 / 500 Other: Date of Last Bowel Movement 11/03/18 11/03/18 - Imaging and Cardiology Imaging: Impressions Chest X-Ray 11/05/18 05:00 CONCLUSION: Endotracheal tube no longer seen. No other significant interval change. Assessment and Plan - Assessment (1) Acute respiratory distress Code(s): R06.03 - Acute respiratory distress Status: Acute (2) Pulmonary edema Code(s): J81.1 - Chronic pulmonary edema Status: Acute (3) Aortic stenosis Code(s): I35.0 - Nonrheumatic aortic (valve) stenosis Status: Chronic (4) Aortic insufficiency Code(s): I35.1 - Nonrheumatic aortic (valve) insufficiency Status: Acute (5) Hypokalemia Code(s): E87.6 - Hypokalemia Status: Acute - Plan 1) Acute respiratory distress/pulmonary edema/acute heart failure Due to severe EF 40-45% 2) Severe by cath s/p 23mm bioprosthetic AVR 3) Mild MS by cath Mean gradient 4mmHG at a heart rate of 88 bpm 4) Diuresed well from RHC numbers 5) Chest tubes out 6) Possible discharge tomorrow Follow up with Dr. Granado (2) Pulmonary edema Qualifiers: Chronicity: acute Qualified Code(s): J81.0 - Acute pulmonary edema (3) Aortic stenosis Qualifiers: Cardiac valve disease etiology: etiology unspecified Qualified Code(s): I35.0 - Nonrheumatic aortic (valve) stenosis (4) Aortic insufficiency Qualifiers: Cardiac valve disease etiology: etiology unspecified Qualified Code(s): I35.1 - Nonrheumatic aortic (valve) insufficiency
[2018-11-07] MEDS: Amiodarone 200 MG Tablet PO SCH ×3 (05:00→21:21)
[2018-11-07] MEDS: Metoprolol Tartrate 25 MG Tablet PO SCH ×3 (06:03→21:11)
--- NOTE | 2018-11-07 07:54 | ECG ---
Date Performed: 11/07/2018 Time Performed: 05:46:52 PTAGE: 73 years EKG: Atrial fibrillation. LVH with secondary repolarization abnormality Nonspecific ST and T wav e abnormalities Abnormal ECG Compared to prior electrocardiogram atrial fibrillation is now present. PREVIOUS TRACING : 11/05/2018 03.22 DOCTOR: Brant Rogers Interpretating Date/Time 11/07/2018 07:54:24
--- NOTE | 2018-11-07 08:07 | P.PN ---
Subjective Interval history: Follow-up severe aortic stenosis status post aortic valve replacement November 05, 2018-patient seen and examined, no significant anterior chest pain. Vitals stable. November 06, 2018-patient seen and examined, no acute event overnight. Stated ambulates couple times yesterday. Currently afebrile. November 07, 2018-patient seen and examined, afebrile, chest tube was removed yesterday. No acute event overnight. Physical Exam Vital signs: Vital Signs 11/06/18 08:14 11/06/18 08:42 11/06/18 10:00 Temperature Pulse Rate 82 87 Respiratory Rate 16 18 Blood Pressure Pulse Oximetry 95 11/06/18 11:00 11/06/18 12:00 11/06/18 13:00 Temperature 98.9 F Pulse Rate 75 82 78 Respiratory Rate 18 Blood Pressure 154/68 H Pulse Oximetry 98 11/06/18 13:35 11/06/18 14:00 11/06/18 14:25 Temperature Pulse Rate 81 82 Respiratory Rate 18 16 Blood Pressure Pulse Oximetry 11/06/18 15:00 11/06/18 16:00 11/06/18 17:00 Temperature 98.8 F Pulse Rate 82 79 84 Respiratory Rate 18 Blood Pressure 133/62 Pulse Oximetry 95 11/06/18 18:00 11/06/18 19:00 11/06/18 20:00 Temperature 98.8 F Pulse Rate 80 82 82 Respiratory Rate 18 Blood Pressure 144/66 H Pulse Oximetry 97 11/06/18 21:00 11/06/18 22:00 11/06/18 23:00 Temperature Pulse Rate 80 79 77 Respiratory Rate Blood Pressure Pulse Oximetry 11/07/18 00:00 11/07/18 01:00 11/07/18 02:00 Temperature 98.7 F Pulse Rate 79 79 78 Respiratory Rate 18 Blood Pressure 125/60 Pulse Oximetry 98 11/07/18 03:00 11/07/18 04:00 11/07/18 05:00 Temperature 98.7 F Pulse Rate 80 79 100 H Respiratory Rate 18 Blood Pressure 116/56 L Pulse Oximetry 98 11/07/18 05:47 Temperature Pulse Rate 101 H Respiratory Rate Blood Pressure Pulse Oximetry Intake & Output 11/06/18 11/07/18 11/07/18 18:59 06:59 18:59 Intake Total 6690 / 6690 480 / 480 Output Total 500 / 500 550 / 550 Balance 6190 / 6190 -70 / -70 Weight 109.5 kg Intake: IV 5850 / 5850 Ancef 1 GM Premix Inj 1 gm In 100 / 100 50 ml @ 100 mls/hr IV.SIG Q8H SHAUN Rx#:[id number] Oral 840 / 840 480 / 480 Output: Urine 500 / 500 550 / 550 Other: Date of Last Bowel Movement 11/03/18 11/03/18 Narrative: GENERAL: NAD SKIN: Warm and dry. HEAD: Atraumatic. Normocephalic. EYES: Pupils equal and round. No scleral icterus. No injection or drainage. ENT: No nasal bleeding or discharge. Mucous membranes pink and moist. NECK: Trachea midline. No JVD. CARDIOVASCULAR: Regular rate and rhythm. dressing over surgical scar RESPIRATORY: No accessory muscle use. Clear to auscultation. Breath sounds equal bilaterally. GASTROINTESTINAL: Abdomen soft, non-tender, nondistended. Hepatic and splenic margins not palpable. MUSCULOSKELETAL: Extremities without clubbing, cyanosis, or edema. No obvious deformities. NEUROLOGICAL: Awake and alert. No obvious cranial nerve deficits. Motor grossly within normal limits. Five out of 5 muscle strength in the arms and legs. Normal speech. PSYCHIATRIC: Appropriate mood and affect; insight and judgment normal. - Urinary Catheter Management Indwelling Temp Sensing Catheter Cath placed during this visit: yes, but has since been removed by the nurse Urethral indwelling: No Reason for continuing: Decision to DC catheter Insertion date: 11/04/18 Insertion time: 07:40 Removal date: 11/05/18 Removal time: 06:00 Results - Labs CBC & Chem 7: 11/06/18 04:41 11/06/18 04:41 Laboratory Results - last 24 hr 11/06/18 11/06/18 11/06/18 08:10 12:23 20:10 POC Glucose 125 H 118 H 134 H 11/07/18 07:24 POC Glucose 106 Assessment and Plan - Assessment (1) Acute respiratory distress Code(s): R06.03 - Acute respiratory distress Status: Acute (2) Pulmonary edema Code(s): J81.1 - Chronic pulmonary edema Status: Acute (3) Aortic stenosis Code(s): I35.0 - Nonrheumatic aortic (valve) stenosis Status: Chronic (4) Aortic insufficiency Code(s): I35.1 - Nonrheumatic aortic (valve) insufficiency Status: Acute (5) Hypokalemia Code(s): E87.6 - Hypokalemia Status: Acute - Plan 73-year-old man with Hx of Severe aortic stenosis Status Post Aortic Valve Replacement 11/04/18 Management per CTS Continue with amiodarone, aspirin, beta-gary Chest tube output removed 11/06/18 PT to treat and eval Acute pulmonary edema-resolved Acute respiratory Failure-resolve Elevated BNP Elevated D-dimer Resolved s/p diuretics therapy Elevated troponin Atherosclerotic vascular disease History of carotid artery disease Elevated BNP Systolic CHF Echocardiogram shows mild systolic CHF Continue aspirin, Lipitor, beta-gary Management per cardiology Seizure disorder NOS Continue carbamazepine Seizure precautions Hyponatremia Not yet improved Follow clinically DVT Prophylaxis SCDs (2) Pulmonary edema Qualifiers: Chronicity: acute Qualified Code(s): J81.0 - Acute pulmonary edema (3) Aortic stenosis Qualifiers: Cardiac valve disease etiology: etiology unspecified Qualified Code(s): I35.0 - Nonrheumatic aortic (valve) stenosis (4) Aortic insufficiency Qualifiers: Cardiac valve disease etiology: etiology unspecified Qualified Code(s): I35.1 - Nonrheumatic aortic (valve) insufficiency
[2018-11-07] MEDS: Insulin NovoLOG Aspart Correctional Sugar Inj SQ SCH ×4 (09:52→21:20)
[2018-11-07] MEDS: Multivitamin/Minerals Therapeutic Tablet PO SCH (09:54)
[2018-11-07] MEDS: Docusate Sodium 100 MG Capsule PO SCH ×2 (09:54→21:13)
[2018-11-07] MEDS: Pantoprazole Inj 40 MG Vial IV.PUSH SCH (09:54)
[2018-11-07] MEDS: carBAMazepine 200 MG Tablet PO SCH ×2 (09:55→21:12)
[2018-11-07] MEDS: Senna/Docusate Sodium 8.6/50 MG Tablet PO SCH ×3 (09:56→21:10)
[2018-11-07] MEDS: Polyethylene Glycol 3350 17 GM Packet PO SCH (09:56)
--- NOTE | 2018-11-07 13:44 | P.PNCV ---
- Note CVT: Post Op Day #: 3 Subjective/Hospital Course: 73-year-old male patient of Dr. Granado presented to [facility] due to shortness of breath. He presented with dyspnea and acute CHF. During these episodes, he did have some chest heaviness. He had a recent echocardiogram showing [id number] aortic stenosis with a mean gradient of 46, a normal ejection fraction and moderate aortic regurgitation. His ECHO on this admission shows decreased EF at ~45% with moderate to severe and moderate AI. LHC/RHC today shows no significant CAD. He is being considered for AVR. 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 Postoperative Diagnosis: same Date of procedure: 11/04/18 Procedure: AVR with a 23 Wang Magna Ease tissue valve HERNANDO Implants: 23 Magna ease tissue valve extubated after surgery 11/05 +1400cc/ eval for diuresis later today will need to be up in chair, ambulated pulm toileting, nebs ezpap , acapella eval for transfer to stepdown on ASA, Amiodarone, start low dose BB 11/06/18 No complaints, doing well 11/07/18 c/o some nausea/vomiting today AFIB this morning Objective: Vital Signs - 24 hr 11/06/18 14:00 11/06/18 14:25 11/06/18 15:00 Temperature Pulse Rate 81 82 82 Respiratory Rate 16 Blood Pressure Pulse Oximetry 11/06/18 16:00 11/06/18 17:00 11/06/18 18:00 Temperature 98.8 F Pulse Rate 79 84 80 Respiratory Rate 18 Blood Pressure 133/62 Pulse Oximetry 95 11/06/18 19:00 11/06/18 20:00 11/06/18 21:00 Temperature 98.8 F Pulse Rate 82 82 80 Respiratory Rate 18 Blood Pressure 144/66 H Pulse Oximetry 97 11/06/18 22:00 11/06/18 23:00 11/07/18 00:00 Temperature 98.7 F Pulse Rate 79 77 79 Respiratory Rate 18 Blood Pressure 125/60 Pulse Oximetry 98 11/07/18 01:00 11/07/18 02:00 11/07/18 03:00 Temperature Pulse Rate 79 78 80 Respiratory Rate Blood Pressure Pulse Oximetry 11/07/18 04:00 11/07/18 05:00 11/07/18 05:47 Temperature 98.7 F Pulse Rate 79 100 H 101 H Respiratory Rate 18 Blood Pressure 116/56 L Pulse Oximetry 98 11/07/18 08:52 Temperature Pulse Rate 82 Respiratory Rate 16 Blood Pressure Pulse Oximetry 94 L Labs: Laboratory Results - last 12 hr 11/07/18 11/07/18 07:24 11:08 POC Glucose 106 143 H Result Diagrams: 11/06/18 04:41 11/06/18 04:41 Imaging: Chest CTA 10/30/18 19:34 CONCLUSION: 1. Bilateral alveolar opacities again noted most characteristic of pulmonary edema. 2. Small to moderate bilateral pleural effusions. 3. No evidence of pulmonary emboli. 4. Coronary artery calcifications. Venous Doppler Study 10/31/18 00:00 CONCLUSION: No venous thrombosis is identified within either lower extremity. Carotid Doppler Study 11/01/18 14:27 CONCLUSION: 1. Right Internal Carotid Artery: Findings indicate <50% stenosis. 2. Left Internal Carotid Artery: Findings indicate <50% stenosis. Chest X-Ray 11/05/18 05:00 CONCLUSION: Endotracheal tube no longer seen. No other significant interval change. Cardiovascular: IRR Telemetry: AFIB Pulmonary: CTA GI/: NABS, NT Incision: dry and intact - Plan (1) Seizure disorder Plan: on tegretol (2) Aortic stenosis (3) Combined systolic and diastolic congestive heart failure Plan: eval for gentle diuresis EF 45% (4) S/P AVR Plan: ON ASA, amiodarone , low dose BB OOB, ambulate transfer to stepdown unit PT CM to eval for HHC Hold pain meds CMP in AM CXR in AM Encourage ambulation Stim BM Eliquis for AFIB (2) Aortic stenosis Qualifiers: Cardiac valve disease etiology: etiology unspecified Qualified Code(s): I35.0 - Nonrheumatic aortic (valve) stenosis (3) Combined systolic and diastolic congestive heart failure Qualifiers: Heart failure chronicity: acute on chronic Qualified Code(s): I50.43 - Acute on chronic combined systolic (congestive) and diastolic (congestive) heart failure
--- NOTE | 2018-11-07 14:42 | P.PNCA ---
Subjective Interval history: Went into AFib this morning Heart rates stable Medications and Allergies Active Medications: Active Medications Acetaminophen (Tylenol) 650 mg PO Q6H PRN PRN Reason: Fever >101f Al Hydroxide/Mg Hydroxide (Milk Of Davina John) 30 ml PO DAILY [facility] Last Admin: 11/07/18 09:53 Dose: 30 ml Albuterol (Albuterol Neb (Prn)) 2.5 mg NEB Q2HR NEB PRN PRN Reason: SHORTNESS OF BREATH/WHEEZING Albuterol (Duoneb Neb (Prn)) 1 ampul NEB Q2HR NEB PRN PRN Reason: WHEEZING Amiodarone HCl (Cordarone) 400 mg PO Q8HR [facility] Last Admin: 11/07/18 14:32 Dose: 400 mg Apixaban (Eliquis) 2.5 mg PO BID [facility] Aspirin (Aspirin Chew) 81 mg PO DAILY [facility] Last Admin: 11/07/18 09:55 Dose: 81 mg Atorvastatin Calcium (Lipitor) 40 mg PO HS [facility] Last Admin: 11/06/18 20:18 Dose: 40 mg Bisacodyl (Dulcolax Supp) 10 mg RECTAL DAILY PRN PRN Reason: SEVERE CONSITIPATION Bisacodyl (Dulcolax Supp) 10 mg RECTAL PRN PRN PRN Reason: SEE LABEL COMMENTS Carbamazepine (Tegretol) 600 mg PO BID [facility] Last Admin: 11/07/18 09:55 Dose: 600 mg Dextrose (D50w Vial) 50 ml IV.PUSH UNSCH PRN PRN Reason: PER HYPOGLYCEMIA PROTOCOL Docusate Sodium (Colace) 100 mg PO BID [facility] Last Admin: 11/07/18 09:54 Dose: 100 mg Glucagon (Glucagon Inj) 1 mg OTHER PRN PRN PRN Reason: For hypoglycemia Magnesium Sulfate 4 gm/ Sodium (Chloride) 100 mls @ 50 mls/hr IV.SIG UNSCH PRN PRN Reason: For Magnesium 0.9 - 1.1 mg/dL Magnesium Sulfate 2 gm/ Sodium (Chloride) 100 mls @ 50 mls/hr IV.SIG UNSCH PRN PRN Reason: For Magnesium 1.2 - 1.6 mg/dL Potassium Chloride (Kcl 40 Meq Premix Inj) 40 meq in 100 mls @ 25 mls/hr IV.SIG Q2H PRN PRN Reason: For Potassium 2.8 - 3.2 mEq/L Potassium Chloride (Kcl 20 Meq Premix Inj) 20 meq in 100 mls @ 50 mls/hr IV.SIG Q2H PRN PRN Reason: For Potassium 3.3 - 3.5 mEq/L Potassium Chloride (Kcl 20 Meq Premix Inj) 20 meq in 100 mls @ 50 mls/hr IV.SIG Q2H PRN PRN Reason: For Potassium 2.8 - 3.2 mEq/L Last Infusion: 11/01/18 21:04 Dose: Infused Potassium Phosphate 30 mmol/ (Sodium Chloride) 260 mls @ 42 mls/hr IV.SIG UNSCH PRN PRN Reason: SEE LABEL COMMENTS Sodium Phosphate 30 mmol/ (Sodium Chloride) 260 mls @ 42 mls/hr IV.SIG UNSCH PRN PRN Reason: For Phosphorus < 2.5 mg/dL Potassium Chloride (Kcl 40 Meq Premix Inj) 40 meq in 100 mls @ 25 mls/hr IV.SIG UNSCH PRN PRN Reason: For Potassium 3.3 - 3.5 mEq/L Cefazolin Sodium/Dextrose (Ancef 2 Gm Premix Inj) 2 gm in 50 mls @ 100 mls/hr IV.SIG HEEL SEAT FITTER [facility] Stop: 11/07/18 14:59 Insulin Aspart (Novolog Insulin Correctional Sugar Inj) 0 unit SQ ACHS [facility]; Protocol Last Admin: 11/07/18 12:22 Dose: 3 unit Lactulose (Lactulose Liq) 30 ml PO DAILY PRN PRN Reason: SEVERE CONSITIPATION Magnesium Oxide (Mag-Ox) 800 mg PO UNSCH PRN PRN Reason: For Magnesium 1.2 - 1.6 mg/dL Metoprolol Tartrate (Lopressor) 12.5 mg PO BID [facility] Last Admin: 11/07/18 09:56 Dose: 12.5 mg Multivitamins/Minerals (Theragran-M) 1 tab PO DAILY [facility] Last Admin: 11/07/18 09:54 Dose: 1 tab Ondansetron HCl (Zofran Inj) 4 mg IV.PUSH Q6H PRN PRN Reason: NAUSEA OR VOMITING Last Admin: 11/07/18 11:48 Dose: 4 mg Pantoprazole Sodium (Protonix Inj) 40 mg IV.PUSH DAILY [facility] Last Admin: 11/07/18 09:54 Dose: 40 mg Polyethylene Glycol (Miralax) 17 gm PO DAILY [facility] Last Admin: 11/07/18 09:56 Dose: 17 gm Potassium Bicarb/Potassium Chloride (K-Lyte Cl Eff) 50 meq PO UNSCH PRN PRN Reason: For Potassium 3.3 - 3.5 mEq/L Potassium Chloride (K-Dur) 20 meq PO BID [facility] Last Admin: 11/07/18 09:55 Dose: Not Given Potassium Phosphate (K-Phos Original) 2,000 mg PO Q4H PRN PRN Reason: Phosphorus Less Than 2.5 mg/dL Potassium Phosphate (K-Phos Original) 2,000 mg PO UNSCH PRN PRN Reason: SEE LABEL COMMENTS Senna/Docusate Sodium (Sinai-Colace) 1 tab PO BID [facility] Last Admin: 11/07/18 09:59 Dose: 1 tab Sennosides (Senokot) 17.2 mg PO Q12H PRN PRN Reason: Moderate Constipation Sennosides (Senokot) 8.6 mg PO HS [facility] Last Admin: 11/06/18 20:18 Dose: 8.6 mg Sodium Biphosphate/Sodium Phosphate (Fleets Enema (Adult)) 118 ml RECTAL UNSCH PRN PRN Reason: SEE LABEL COMMENTS Sodium Chloride (Ns Flush) 2 ml IV.FLUSH BID [facility] Last Admin: 11/07/18 09:56 Dose: 2 ml Sodium Chloride (Ns Flush) 2 ml IV.FLUSH PRN PRN PRN Reason: FLUSH AFTER USING IV ACCESS Allergies Allergy/AdvReac Type Severity Reaction Status Date / Time No Known Allergies Allergy Verified 10/30/18 18:40 Home Medications Medication Instructions Recorded Confirmed Type carbamazepine 600 mg PO BID 11/05/18 11/05/18 History Physical Exam Vital signs: Vital Signs 11/06/18 15:00 11/06/18 16:00 11/06/18 17:00 Temperature 98.8 F Pulse Rate 82 79 84 Respiratory Rate 18 Blood Pressure 133/62 Pulse Oximetry 95 11/06/18 18:00 11/06/18 19:00 11/06/18 20:00 Temperature 98.8 F Pulse Rate 80 82 82 Respiratory Rate 18 Blood Pressure 144/66 H Pulse Oximetry 97 11/06/18 21:00 11/06/18 22:00 11/06/18 23:00 Temperature Pulse Rate 80 79 77 Respiratory Rate Blood Pressure Pulse Oximetry 11/07/18 00:00 11/07/18 01:00 11/07/18 02:00 Temperature 98.7 F Pulse Rate 79 79 78 Respiratory Rate 18 Blood Pressure 125/60 Pulse Oximetry 98 11/07/18 03:00 11/07/18 04:00 11/07/18 05:00 Temperature 98.7 F Pulse Rate 80 79 100 H Respiratory Rate 18 Blood Pressure 116/56 L Pulse Oximetry 98 11/07/18 05:47 11/07/18 08:52 Temperature Pulse Rate 101 H 82 Respiratory Rate 16 Blood Pressure Pulse Oximetry 94 L Intake & Output 11/06/18 11/07/18 11/07/18 18:59 06:59 18:59 Intake Total 6690 / 6690 480 / 480 Output Total 500 / 500 550 / 550 Balance 6190 / 6190 -70 / -70 Weight 109.5 kg Intake: IV 5850 / 5850 Ancef 1 GM Premix Inj 1 gm In 100 / 100 50 ml @ 100 mls/hr IV.SIG Q8H SHAUN Rx#:[id number] Oral 840 / 840 480 / 480 Output: Urine 500 / 500 550 / 550 Other: Date of Last Bowel Movement 11/03/18 11/03/18 Narrative: GENERAL: NAD SKIN: Warm and dry. HEAD: Atraumatic. Normocephalic. EYES: Pupils equal and round. No scleral icterus. No injection or drainage. ENT: No nasal bleeding or discharge. Mucous membranes pink and moist. NECK: Trachea midline. No JVD. CARDIOVASCULAR: Irregularly irregular. dressing over surgical scar RESPIRATORY: No accessory muscle use. Clear to auscultation. Breath sounds equal bilaterally. GASTROINTESTINAL: Abdomen soft, non-tender, nondistended. Hepatic and splenic margins not palpable. MUSCULOSKELETAL: Extremities without clubbing, cyanosis, or edema. No obvious deformities. NEUROLOGICAL: Awake and alert. No obvious cranial nerve deficits. Motor grossly within normal limits. Five out of 5 muscle strength in the arms and legs. Normal speech. PSYCHIATRIC: Appropriate mood and affect; insight and judgment normal. - Urinary Catheter Management Indwelling Temp Sensing Catheter Cath placed during this visit: yes, but has since been removed by the nurse Urethral indwelling: No Reason for continuing: Decision to DC catheter Insertion date: 11/04/18 Insertion time: 07:40 Removal date: 11/05/18 Removal time: 06:00 Results 11/06/18 04:41 11/06/18 04:41 CBC 11/06/18 Range/Units 04:41 WBC 9.6 (4.0-11.0) th/mm3 RBC 3.13 L (4.50-5.90) mil/mm3 Hgb 10.5 L (13.0-17.0) gm/dL Hct 28.8 L (39.0-51.0) % Plt Count 118 L (150-450) th/mm3 Neut # (Auto) 6.6 (1.8-7.7) th/mm3 Lymph # (Auto) 1.2 (1.0-4.8) th/mm3 [place] # (Auto) 1.7 H (0.0-0.9) th/mm3 Eos # (Auto) 0.1 (0.0-0.4) th/mm3 Baso # (Auto) 0.0 (0.0-0.2) th/mm3 Comprehensive Metabolic Panel 11/06/18 Range/Units 04:41 Sodium 129 L (136-145) meq/L Potassium 5.1 (3.5-5.1) meq/L Chloride 96 L (98-107) meq/L Carbon Dioxide 26.4 (21.0-32.0) meq/L BUN 29 H (7-18) mg/dL Creatinine 0.82 (0.60-1.30) mg/dL Calcium 7.6 L (8.5-10.1) mg/dL Intake and Output 11/06/18 11/07/18 11/07/18 22:59 06:59 14:59 Intake Total 840 / 840 480 / 480 Output Total 500 / 500 550 / 550 Balance 340 / 340 -70 / -70 Intake: Oral 840 / 840 480 / 480 Output: Urine 500 / 500 550 / 550 Other: Date of Last Bowel Movement 11/03/18 11/03/18 Weight 109.5 kg Assessment and Plan - Assessment (1) Acute respiratory distress Code(s): R06.03 - Acute respiratory distress Status: Acute (2) Pulmonary edema Code(s): J81.1 - Chronic pulmonary edema Status: Acute (3) Aortic stenosis Code(s): I35.0 - Nonrheumatic aortic (valve) stenosis Status: Chronic (4) Aortic insufficiency Code(s): I35.1 - Nonrheumatic aortic (valve) insufficiency Status: Acute (5) Afib Code(s): I48.91 - Unspecified atrial fibrillation Status: Acute (6) S/P AVR Code(s): Z95.2 - Presence of prosthetic heart valve Status: Acute - Plan 1) Acute respiratory distress/pulmonary edema/acute heart failure Due to severe EF 40-45% 2) Severe by cath s/p 23mm bioprosthetic AVR 3) Mild MS by cath Mean gradient 4mmHG at a heart rate of 88 bpm 4) New onset AFib Recommend Eliquis 5mg BID Discussed with , patient currently sleeping Will discuss further with him (2) Pulmonary edema Qualifiers: Chronicity: acute Qualified Code(s): J81.0 - Acute pulmonary edema (3) Aortic stenosis Qualifiers: Cardiac valve disease etiology: etiology unspecified Qualified Code(s): I35.0 - Nonrheumatic aortic (valve) stenosis (4) Aortic insufficiency Qualifiers: Cardiac valve disease etiology: etiology unspecified Qualified Code(s): I35.1 - Nonrheumatic aortic (valve) insufficiency
--- NOTE | 2018-11-08 03:56 | XR ---
EXAM DATE: 11/08/2018 3:37 AM EST AGE/SEX: 73 years / Male INDICATIONS: Cardiac disease. CLINICAL DATA: This is the patient's subsequent encounter. Patient reports that signs and symptoms h ave been present for 1 week and indicates a pain score of 0/10. MEDICAL/SURGICAL HISTORY: . Congestive heart failure. Epilepsy. CABG. Aortic valve replacement . COMPARISON: [facility] [place], CHEST 1V SINGLE AP, 11/05/2018. . FINDINGS: The patient is status post sternotomy. There is increased density at the left base with silhouetting the left hemidiaphragm. There is minimal increased density medial right base. There is been removal o f the right chest tube. A pneumothorax is not seen. CONCLUSION: Left lower lobe atelectasis or consolidation. Minimal atelectasis or consolidation at the medial right base. Electronically signed by: Colin Dupont MD Board Certified Radiologist 11/08/2018 3:55 AM EST
[2018-11-08] MEDS: Amiodarone 200 MG Tablet PO SCH ×2 (05:18→14:41)
[2018-11-08 05:28] LABS: Alanine Aminotransferase 19 U/L (12-78); Albumin 2.4 g/dL (3.4-5.0); Alkaline Phosphatase 60 U/L (45-117); Anion Gap 7 meq/L (5-15); Aspartate Aminotransferase 27 U/L (15-37); Blood Urea Nitrogen 15 mg/dL (7-18); Calcium 7.6 mg/dL (8.5-10.1); Carbon Dioxide 26.9 meq/L (21.0-32.0); Chloride 95 meq/L (98-107); Glomerular Filtration Rate Greater Than 89 mL/min (>89); Glucose,Random 101 mg/dL (74-106); Potassium 4.1 meq/L (3.5-5.1); Sodium 129 meq/L (136-145)
[2018-11-08] MEDS: Insulin NovoLOG Aspart Correctional Sugar Inj SQ SCH ×4 (08:10→20:43)
[2018-11-08] MEDS: Docusate Sodium 100 MG Capsule PO SCH ×2 (08:42→20:36)
[2018-11-08] MEDS: Metoprolol Tartrate 25 MG Tablet PO SCH ×2 (08:42→20:35)
[2018-11-08] MEDS: Senna/Docusate Sodium 8.6/50 MG Tablet PO SCH ×2 (08:42→20:36)
[2018-11-08] MEDS: Multivitamin/Minerals Therapeutic Tablet PO SCH (08:42)
[2018-11-08] MEDS: carBAMazepine 200 MG Tablet PO SCH ×2 (08:42→20:39)
[2018-11-08] MEDS: Polyethylene Glycol 3350 17 GM Packet PO SCH (08:43)
[2018-11-08] MEDS: Pantoprazole Inj 40 MG Vial IV.PUSH SCH (08:43)
--- NOTE | 2018-11-08 09:53 | P.PN ---
Subjective Interval history: Follow-up severe aortic stenosis status post aortic valve replacement November 05, 2018-patient seen and examined, no significant anterior chest pain. Vitals stable. November 06, 2018-patient seen and examined, no acute event overnight. Stated ambulates couple times yesterday. Currently afebrile. November 07, 2018-patient seen and examined, afebrile, chest tube was removed yesterday. No acute event overnight. November 08, 2018-patient seen and examined, stable, denies any shortness of breath or chest pain. Episode of nausea and emesis resolved since yesterday. Physical Exam Vital signs: Vital Signs 11/07/18 10:00 11/07/18 11:00 11/07/18 12:00 Temperature 98.2 F Pulse Rate 90 85 82 Respiratory Rate 18 Blood Pressure 123/56 L Pulse Oximetry 97 11/07/18 13:00 11/07/18 14:00 11/07/18 15:00 Temperature Pulse Rate 80 85 86 Respiratory Rate Blood Pressure Pulse Oximetry 11/07/18 16:00 11/07/18 17:00 11/07/18 18:00 Temperature 98.8 F Pulse Rate 75 88 80 Respiratory Rate 18 Blood Pressure 145/66 H Pulse Oximetry 98 11/07/18 19:00 11/07/18 20:00 11/07/18 21:00 Temperature 98.7 F Pulse Rate 85 87 84 Respiratory Rate 18 Blood Pressure 135/61 Pulse Oximetry 98 11/07/18 22:00 11/07/18 23:00 11/08/18 00:00 Temperature 98.4 F Pulse Rate 78 78 82 Respiratory Rate 18 Blood Pressure 118/55 L Pulse Oximetry 96 11/08/18 01:00 11/08/18 02:00 11/08/18 03:00 Temperature Pulse Rate 86 84 99 H Respiratory Rate Blood Pressure Pulse Oximetry 11/08/18 04:00 11/08/18 05:00 11/08/18 06:00 Temperature 98.4 F Pulse Rate 86 84 84 Respiratory Rate 18 Blood Pressure 114/55 L Pulse Oximetry 95 Intake & Output 11/07/18 11/08/18 11/08/18 18:59 06:59 18:59 Intake Total 860 / 860 240 / 240 Output Total 250 / 250 500 / 500 Balance 610 / 610 -260 / -260 Weight 109.5 kg Intake: Oral 860 / 860 240 / 240 Output: Urine 250 / 250 500 / 500 Other: # Voids 2 Date of Last Bowel Movement 11/07/18 11/07/18 # Bowel Movements 2 # [place] 3 Narrative: GENERAL: NAD SKIN: Warm and dry. HEAD: Atraumatic. Normocephalic. EYES: Pupils equal and round. No scleral icterus. No injection or drainage. ENT: No nasal bleeding or discharge. Mucous membranes pink and moist. NECK: Trachea midline. No JVD. CARDIOVASCULAR: irreg Regular rate and rhythm. RESPIRATORY: No accessory muscle use. Clear to auscultation. Breath sounds equal bilaterally. GASTROINTESTINAL: Abdomen soft, non-tender, nondistended. Hepatic and splenic margins not palpable. MUSCULOSKELETAL: Extremities without clubbing, cyanosis, or edema. No obvious deformities. NEUROLOGICAL: Awake and alert. No obvious cranial nerve deficits. Motor grossly within normal limits. Five out of 5 muscle strength in the arms and legs. Normal speech. PSYCHIATRIC: Appropriate mood and affect; insight and judgment normal. - Urinary Catheter Management Indwelling Temp Sensing Catheter Cath placed during this visit: yes, but has since been removed by the nurse Urethral indwelling: No Reason for continuing: Decision to DC catheter Insertion date: 11/04/18 Insertion time: 07:40 Removal date: 11/05/18 Removal time: 06:00 Results - Labs CBC & Chem 7: 11/06/18 04:41 11/08/18 04:13 Laboratory Results - last 24 hr 11/07/18 11/07/18 11/07/18 11:08 17:15 21:20 Sodium Potassium Chloride Carbon Dioxide Anion Gap BUN Creatinine Estimated GFR POC Glucose 143 H 114 H 121 H Random Glucose Calcium Total Bilirubin AST ALT Alkaline Phosphatase Total Protein Albumin 11/08/18 11/08/18 04:13 07:16 Sodium 129 L Potassium 4.1 D Chloride 95 L Carbon Dioxide 26.9 Anion Gap 7 BUN 15 Creatinine 0.76 Estimated GFR Greater than 89 POC Glucose 98 Random Glucose 101 Calcium 7.6 L Total Bilirubin 0.5 AST 27 ALT 19 Alkaline Phosphatase 60 Total Protein 5.0 L D Albumin 2.4 L - Imaging Impressions Chest X-Ray 11/08/18 04:00 CONCLUSION: Left lower lobe atelectasis or consolidation. Minimal atelectasis or consolidation at the medial right base. Assessment and Plan - Assessment (1) Acute respiratory distress Code(s): R06.03 - Acute respiratory distress Status: Acute (2) Pulmonary edema Code(s): J81.1 - Chronic pulmonary edema Status: Acute (3) Aortic stenosis Code(s): I35.0 - Nonrheumatic aortic (valve) stenosis Status: Chronic (4) Aortic insufficiency Code(s): I35.1 - Nonrheumatic aortic (valve) insufficiency Status: Acute (5) Hypokalemia Code(s): E87.6 - Hypokalemia Status: Acute - Plan 73-year-old man with Hx of Severe aortic stenosis Status Post Aortic Valve Replacement 11/04/18 Management per CTS Continue with amiodarone, aspirin, beta-gary Chest tube output removed 11/06/18 PT to treat and eval Acute pulmonary edema-resolved Acute respiratory Failure-resolve Elevated BNP Elevated D-dimer Resolved s/p diuretics therapy Elevated troponin Atherosclerotic vascular disease History of carotid artery disease Elevated BNP Systolic CHF Echocardiogram shows mild systolic CHF Continue aspirin, Lipitor, beta-gary Management per cardiology New onset A. fib Continue beta-gary Likely patient will need to be on Eliquis 5 mg p.o. twice daily Appreciate input from cardiology Seizure disorder NOS Continue carbamazepine Seizure precautions Hyponatremia Not yet improved Follow clinically DVT Prophylaxis SCDs Discharge Planning: D/C likely in AM 11/09/18 (2) Pulmonary edema Qualifiers: Chronicity: acute Qualified Code(s): J81.0 - Acute pulmonary edema (3) Aortic stenosis Qualifiers: Cardiac valve disease etiology: etiology unspecified Qualified Code(s): I35.0 - Nonrheumatic aortic (valve) stenosis (4) Aortic insufficiency Qualifiers: Cardiac valve disease etiology: etiology unspecified Qualified Code(s): I35.1 - Nonrheumatic aortic (valve) insufficiency
--- NOTE | 2018-11-08 11:55 | ECHRPT ---
Indication: HEART FAILURE CONCLUSIONS Normal left ventricular size. Mild concentric left ventricular hypertrophy. The left ventricular systolic function is mildly reduced with an estimated ejection fraction in the range of 45- 50%. Calcification of both mitral valve leaflets. [id number] mitral valve regurgitation. Bovine AVR, mean gradient 14 mmHg. The estimated pulmonary arterial pressure is 38 mmHg. BP: / HR: Rhythm: MEASUREMENTS (Male / Female) Normal Values Technical Quality: 2D ECHO LV Diastolic Diameter PLAX 4.7 cm 4.2 - 5.9 / 3.9 - 5.3 cm LV Systolic Diameter PLAX 4.2 cm IVS Diastolic Thickness 1.4 cm 0.6 - 1.0 / 0.6 - 0.9 cm LVPW Diastolic Thickness 1.5 cm 0.6 - 1.0 / 0.6 - 0.9 cm LV Relative Wall Thickness 0.6 RV Internal Dim ED PLAX 3.4 cm LVOT Diameter 1.5 cm Aortic Root Diameter 2.8 cm LA Systolic Diameter LX 4.6 cm 3.0 - 4.0 / 2.7 - 3.8 cm LV Ejection Fraction MOD BP 51.2 % >= 55 % LV Ejection Fraction MOD 4C 49.6 % LV Ejection Fraction 4C AL 51.2 % LV Ejection Fraction MOD 2C 49.0 % LV Ejection Fraction 2C AL 51.1 % M-MODE Aortic Root Diameter MM 1.7 cm LA Systolic Diameter MM 5.2 cm LA Ao Ratio MM 3.1 AV Cusp Separation MM 1.0 cm DOPPLER AV Peak Velocity 255.3 cm/s AV Peak Gradient 26.1 mmHg AV Mean Gradient 13.7 mmHg AV Velocity Time Integral 43.7 cm LVOT Peak Velocity 99.1 cm/s LVOT Peak Gradient 3.9 mmHg LVOT Velocity Time Integral 18.7 cm AV Area Cont Eq vti 0.8 cm AV Area Cont Eq pk 0.7 cm MV Peak Velocity 167.0 cm/s MV Peak Gradient 11.2 mmHg MV Mean Velocity 71.5 cm/s MV Mean Gradient 3.0 mmHg MV Area PHT 2.5 cm Mitral E Point Velocity 160.0 cm/s Mitral A Point Velocity 77.9 cm/s Mitral E to A Ratio 2.1 TR Peak Velocity 265.0 cm/s TR Peak Gradient 28.1 mmHg Right Atrial Pressure 10.0 mmHg Pulmonary Artery Systolic Pressu 38.1 mmHg Right Ventricular Systolic Press 38.1 mmHg PV Peak Velocity 115.0 cm/s PV Peak Gradient 5.3 mmHg FINDINGS LEFT VENTRICLE Normal left ventricular size. Mild concentric left ventricular hypertrophy. The left ventricular systolic function is mildly reduced with an estimated ejection fraction in the range of 45- 50%. MITRAL VALVE Calcification of both mitral valve leaflets. [id number] mitral valve regurgitation. AORTIC VALVE Bovine AVR Mean gradient 14 mmhg. TRICUSPID VALVE The estimated pulmonary arterial pressure is 38 mmHg. Sheila Vivar MD, FACC (Electronically Signed) Final Date:08 November 2018 11:54
--- NOTE | 2018-11-08 12:34 | P.PNCV ---
- Note CVT: Post Op Day #: 4 Subjective/Hospital Course: 73-year-old male patient of Dr. Granado presented to [facility] due to shortness of breath. He presented with dyspnea and acute CHF. During these episodes, he did have some chest heaviness. He had a recent echocardiogram showing [id number] aortic stenosis with a mean gradient of 46, a normal ejection fraction and moderate aortic regurgitation. His ECHO on this admission shows decreased EF at ~45% with moderate to severe and moderate AI. LHC/RHC today shows no significant CAD. He is being considered for AVR. 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 Feeling better. +BM Objective: Vital Signs - 24 hr 11/07/18 13:00 11/07/18 14:00 11/07/18 15:00 Temperature Pulse Rate 80 85 86 Respiratory Rate Blood Pressure Pulse Oximetry 11/07/18 16:00 11/07/18 17:00 11/07/18 18:00 Temperature 98.8 F Pulse Rate 75 88 80 Respiratory Rate 18 Blood Pressure 145/66 H Pulse Oximetry 98 11/07/18 19:00 11/07/18 20:00 11/07/18 21:00 Temperature 98.7 F Pulse Rate 85 87 84 Respiratory Rate 18 Blood Pressure 135/61 Pulse Oximetry 98 11/07/18 22:00 11/07/18 23:00 11/08/18 00:00 Temperature 98.4 F Pulse Rate 78 78 82 Respiratory Rate 18 Blood Pressure 118/55 L Pulse Oximetry 96 11/08/18 01:00 11/08/18 02:00 11/08/18 03:00 Temperature Pulse Rate 86 84 99 H Respiratory Rate Blood Pressure Pulse Oximetry 11/08/18 04:00 11/08/18 05:00 11/08/18 06:00 Temperature 98.4 F Pulse Rate 86 84 84 Respiratory Rate 18 Blood Pressure 114/55 L Pulse Oximetry 95 Labs: Laboratory Results - last 12 hr 11/08/18 11/08/18 11/08/18 04:13 07:16 11:45 Sodium 129 L Potassium 4.1 D Chloride 95 L Carbon Dioxide 26.9 Anion Gap 7 BUN 15 Creatinine 0.76 Estimated GFR Greater than 89 POC Glucose 98 114 H Random Glucose 101 Calcium 7.6 L Total Bilirubin 0.5 AST 27 ALT 19 Alkaline Phosphatase 60 Total Protein 5.0 L D Albumin 2.4 L Result Diagrams: 11/06/18 04:41 11/08/18 04:13 Imaging: Chest CTA 10/30/18 19:34 CONCLUSION: 1. Bilateral alveolar opacities again noted most characteristic of pulmonary edema. 2. Small to moderate bilateral pleural effusions. 3. No evidence of pulmonary emboli. 4. Coronary artery calcifications. Venous Doppler Study 10/31/18 00:00 CONCLUSION: No venous thrombosis is identified within either lower extremity. Carotid Doppler Study 11/01/18 14:27 CONCLUSION: 1. Right Internal Carotid Artery: Findings indicate <50% stenosis. 2. Left Internal Carotid Artery: Findings indicate <50% stenosis. Chest X-Ray 11/08/18 04:00 CONCLUSION: Left lower lobe atelectasis or consolidation. Minimal atelectasis or consolidation at the medial right base. Cardiovascular: IRR Telemetry: AFIB Pulmonary: CTA GI/: NABS Incision: Dry and intact - Plan (1) Seizure disorder Plan: on tegretol (2) Aortic stenosis (3) Combined systolic and diastolic congestive heart failure Plan: eval for gentle diuresis EF 45% (4) S/P AVR Plan: ON ASA, amiodarone , low dose BB OOB, ambulate transfer to stepdown unit PT CM to eval for HHC Advance diet Plan D/C in AM Echo this morning Encourage ambulation Will need a 12 lead ECG in 2 weeks to see if he converts to NSR. Kelseyis for AFIB (2) Aortic stenosis Qualifiers: Cardiac valve disease etiology: etiology unspecified Qualified Code(s): I35.0 - Nonrheumatic aortic (valve) stenosis (3) Combined systolic and diastolic congestive heart failure Qualifiers: Heart failure chronicity: acute on chronic Qualified Code(s): I50.43 - Acute on chronic combined systolic (congestive) and diastolic (congestive) heart failure
--- NOTE | 2018-11-08 17:58 | P.PNCA ---
Subjective Interval history: Still with nausea and emesis Had a bowel movement Medications and Allergies Active Medications: Active Medications Acetaminophen (Tylenol) 650 mg PO Q6H PRN PRN Reason: Fever >101f Al Hydroxide/Mg Hydroxide (Milk Of Magnesia Liq) 30 ml PO DAILY [facility] Last Admin: 11/08/18 08:43 Dose: 30 ml Albuterol (Albuterol Neb (Prn)) 2.5 mg NEB Q2HR NEB PRN PRN Reason: SHORTNESS OF BREATH/WHEEZING Albuterol (Duoneb Neb (Prn)) 1 ampul NEB Q2HR NEB PRN PRN Reason: WHEEZING Apixaban (Eliquis) 2.5 mg PO BID [facility] Last Admin: 11/08/18 08:41 Dose: 2.5 mg Aspirin (Aspirin Chew) 81 mg PO DAILY [facility] Last Admin: 11/08/18 08:42 Dose: 81 mg Atorvastatin Calcium (Lipitor) 40 mg PO HS [facility] Last Admin: 11/07/18 21:11 Dose: 40 mg Bisacodyl (Dulcolax Supp) 10 mg RECTAL DAILY PRN PRN Reason: SEVERE CONSITIPATION Bisacodyl (Dulcolax Supp) 10 mg RECTAL PRN PRN PRN Reason: SEE LABEL COMMENTS Carbamazepine (Tegretol) 600 mg PO BID [facility] Last Admin: 11/08/18 08:42 Dose: 600 mg Dextrose (D50w Vial) 50 ml IV.PUSH UNSCH PRN PRN Reason: PER HYPOGLYCEMIA PROTOCOL Docusate Sodium (Colace) 100 mg PO BID [facility] Last Admin: 11/08/18 08:42 Dose: 100 mg Furosemide (Lasix Inj) 40 mg IV.PUSH BID@0900,1800 [facility] Last Admin: 11/08/18 17:50 Dose: 40 mg Glucagon (Glucagon Inj) 1 mg OTHER PRN PRN PRN Reason: For hypoglycemia Insulin Aspart (Novolog Insulin Correctional Sugar Inj) 0 unit SQ ACHS [facility]; Protocol Last Admin: 11/08/18 17:50 Dose: Not Given Lactulose (Lactulose Liq) 30 ml PO DAILY PRN PRN Reason: SEVERE CONSITIPATION Metoprolol Tartrate (Lopressor) 12.5 mg PO BID [facility] Last Admin: 11/08/18 08:42 Dose: 12.5 mg Multivitamins/Minerals (Theragran-M) 1 tab PO DAILY [facility] Last Admin: 11/08/18 08:42 Dose: 1 tab Ondansetron HCl (Zofran Inj) 4 mg IV.PUSH Q6H PRN PRN Reason: NAUSEA OR VOMITING Last Admin: 11/07/18 11:48 Dose: 4 mg Pantoprazole Sodium (Protonix Inj) 40 mg IV.PUSH DAILY [facility] Last Admin: 11/08/18 08:43 Dose: 40 mg Polyethylene Glycol (Miralax) 17 gm PO DAILY [facility] Last Admin: 11/08/18 08:43 Dose: Not Given Potassium Chloride (K-Dur) 20 meq PO BID [facility] Last Admin: 11/08/18 08:42 Dose: 20 meq Senna/Docusate Sodium (Sinai-Colace) 1 tab PO BID [facility] Last Admin: 11/08/18 08:42 Dose: 1 tab Sennosides (Senokot) 17.2 mg PO Q12H PRN PRN Reason: Moderate Constipation Sennosides (Senokot) 8.6 mg PO HS [facility] Last Admin: 11/07/18 21:12 Dose: 8.6 mg Sodium Biphosphate/Sodium Phosphate (Fleets Enema (Adult)) 118 ml RECTAL UNSCH PRN PRN Reason: SEE LABEL COMMENTS Sodium Chloride (Ns Flush) 2 ml IV.FLUSH BID [facility] Last Admin: 11/08/18 08:43 Dose: 2 ml Sodium Chloride (Ns Flush) 2 ml IV.FLUSH PRN PRN PRN Reason: FLUSH AFTER USING IV ACCESS Allergies Allergy/AdvReac Type Severity Reaction Status Date / Time No Known Allergies Allergy Verified 10/30/18 18:40 Home Medications Medication Instructions Recorded Confirmed Type carbamazepine 600 mg PO BID 11/05/18 11/05/18 History Physical Exam Vital signs: Vital Signs 11/07/18 18:00 11/07/18 19:00 11/07/18 20:00 Temperature 98.7 F Pulse Rate 80 85 87 Respiratory Rate 18 Blood Pressure 135/61 Pulse Oximetry 98 11/07/18 21:00 11/07/18 22:00 11/07/18 23:00 Temperature Pulse Rate 84 78 78 Respiratory Rate Blood Pressure Pulse Oximetry 11/08/18 00:00 11/08/18 01:00 11/08/18 02:00 Temperature 98.4 F Pulse Rate 82 86 84 Respiratory Rate 18 Blood Pressure 118/55 L Pulse Oximetry 96 11/08/18 03:00 11/08/18 04:00 11/08/18 05:00 Temperature 98.4 F Pulse Rate 99 H 86 84 Respiratory Rate 18 Blood Pressure 114/55 L Pulse Oximetry 95 11/08/18 06:00 11/08/18 07:00 11/08/18 08:00 Temperature 99.1 F Pulse Rate 84 83 88 Respiratory Rate 18 Blood Pressure 131/59 L Pulse Oximetry 98 11/08/18 09:00 11/08/18 10:00 11/08/18 11:00 Temperature Pulse Rate 88 79 79 Respiratory Rate Blood Pressure Pulse Oximetry 11/08/18 12:00 11/08/18 13:00 11/08/18 13:05 Temperature 98.4 F Pulse Rate 79 80 Respiratory Rate 18 18 Blood Pressure 117/58 L Pulse Oximetry 96 11/08/18 14:00 11/08/18 15:00 11/08/18 16:00 Temperature 97.5 F L Pulse Rate 77 79 88 Respiratory Rate 18 Blood Pressure 128/57 L Pulse Oximetry 98 11/08/18 17:00 Temperature Pulse Rate 88 Respiratory Rate Blood Pressure Pulse Oximetry Intake & Output 11/07/18 11/08/18 11/08/18 18:59 06:59 18:59 Intake Total 860 / 860 240 / 240 Output Total 250 / 250 500 / 500 Balance 610 / 610 -260 / -260 Weight 109.5 kg Intake: Oral 860 / 860 240 / 240 Output: Urine 250 / 250 500 / 500 Other: # Voids 2 Date of Last Bowel Movement 11/07/18 11/07/18 11/03/18 # Bowel Movements 2 # Emeses 3 Narrative: GENERAL: NAD SKIN: Warm and dry. HEAD: Atraumatic. Normocephalic. EYES: Pupils equal and round. No scleral icterus. No injection or drainage. ENT: No nasal bleeding or discharge. Mucous membranes pink and moist. NECK: Trachea midline. No JVD. CARDIOVASCULAR: irreg Regular rate and rhythm. RESPIRATORY: No accessory muscle use. Clear to auscultation. Breath sounds equal bilaterally. GASTROINTESTINAL: Abdomen soft, non-tender, nondistended. Hepatic and splenic margins not palpable. MUSCULOSKELETAL: Extremities without clubbing, cyanosis, or edema. No obvious deformities. NEUROLOGICAL: Awake and alert. No obvious cranial nerve deficits. Motor grossly within normal limits. Five out of 5 muscle strength in the arms and legs. Normal speech. PSYCHIATRIC: Appropriate mood and affect; insight and judgment normal. - Urinary Catheter Management Indwelling Temp Sensing Catheter Cath placed during this visit: yes, but has since been removed by the nurse Urethral indwelling: No Reason for continuing: Decision to DC catheter Insertion date: 11/04/18 Insertion time: 07:40 Removal date: 11/05/18 Removal time: 06:00 Results 11/06/18 04:41 11/08/18 04:13 Cardiac Enzymes 11/08/18 Range/Units 04:13 AST 27 (15-37) U/L Comprehensive Metabolic Panel 11/08/18 Range/Units 04:13 Sodium 129 L (136-145) meq/L Potassium 4.1 D (3.5-5.1) meq/L Chloride 95 L (98-107) meq/L Carbon Dioxide 26.9 (21.0-32.0) meq/L BUN 15 (7-18) mg/dL Creatinine 0.76 (0.60-1.30) mg/dL Calcium 7.6 L (8.5-10.1) mg/dL AST 27 (15-37) U/L ALT 19 (12-78) U/L Alkaline Phosphatase 60 (45-117) U/L Total Protein 5.0 L D (6.4-8.2) g/dL Albumin 2.4 L (3.4-5.0) g/dL Intake and Output 11/08/18 11/08/18 11/08/18 06:59 14:59 22:59 Intake Total 240 / 240 Output Total 500 / 500 Balance -260 / -260 Intake: Oral 240 / 240 Output: Urine 500 / 500 Other: Date of Last Bowel Movement 11/07/18 11/03/18 11/03/18 Weight 109.5 kg - Imaging and Cardiology Imaging: Impressions Chest X-Ray 11/08/18 04:00 CONCLUSION: Left lower lobe atelectasis or consolidation. Minimal atelectasis or consolidation at the medial right base. Assessment and Plan - Assessment (1) Acute respiratory distress Code(s): R06.03 - Acute respiratory distress Status: Acute (2) Pulmonary edema Code(s): J81.1 - Chronic pulmonary edema Status: Acute (3) Aortic stenosis Code(s): I35.0 - Nonrheumatic aortic (valve) stenosis Status: Chronic (4) Aortic insufficiency Code(s): I35.1 - Nonrheumatic aortic (valve) insufficiency Status: Acute (5) Afib Code(s): I48.91 - Unspecified atrial fibrillation Status: Acute (6) S/P AVR Code(s): Z95.2 - Presence of prosthetic heart valve Status: Acute - Plan 1) Acute respiratory distress/pulmonary edema/acute heart failure Due to severe EF 40-45% 2) Severe by cath s/p 23mm bioprosthetic AVR 3) Mild MS by cath Mean gradient 4mmHG at a heart rate of 88 bpm 4) New onset AFib Currently on Amiodarone Due to nausea and emesis, as well as interaction with Tegretol, will plan to stop Will need to watch heart rates and see if he needs further AV rhonda blockers Recommended Eliquis 5mg BID He was placed on 2.5mg BID due to interaction with Tegretol, but Tegretol actually decreases the amount of Eliquis available Discussed with patient and his , they want to wait to hear from their neurologist, Dr. Fernandez, and his thoughts especially with interaction with Tegretol Plan to place Eliquis on hold for now at their request, they will let us know about restarting it, and should be restarted at 5mg BID 5) Concerns over the weekend, please call the service for covering physician (2) Pulmonary edema Qualifiers: Chronicity: acute Qualified Code(s): J81.0 - Acute pulmonary edema (3) Aortic stenosis Qualifiers: Cardiac valve disease etiology: etiology unspecified Qualified Code(s): I35.0 - Nonrheumatic aortic (valve) stenosis (4) Aortic insufficiency Qualifiers: Cardiac valve disease etiology: etiology unspecified Qualified Code(s): I35.1 - Nonrheumatic aortic (valve) insufficiency
--- NOTE | 2018-11-09 09:21 | P.PNCV ---
- Note Subjective/Hospital Course: 73-year-old male patient of Dr. Granado presented to [facility] due to shortness of breath. He presented with dyspnea and acute CHF. During these episodes, he did have some chest heaviness. He had a recent echocardiogram showing [id number] aortic stenosis with a mean gradient of 46, a normal ejection fraction and moderate aortic regurgitation. His ECHO on this admission shows decreased EF at ~45% with moderate to severe and moderate AI. LHC/RHC today shows no significant CAD. He is being considered for AVR. 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 Feeling better. +BM 11/09 D/C Home Objective: Vital Signs - 24 hr 11/08/18 10:00 11/08/18 11:00 11/08/18 12:00 Temperature 98.4 F Pulse Rate 79 79 79 Respiratory Rate 18 Blood Pressure 117/58 L Pulse Oximetry 96 11/08/18 13:00 11/08/18 13:05 11/08/18 14:00 Temperature Pulse Rate 80 77 Respiratory Rate 18 Blood Pressure Pulse Oximetry 11/08/18 15:00 11/08/18 16:00 11/08/18 17:00 Temperature 97.5 F L Pulse Rate 79 88 88 Respiratory Rate 18 Blood Pressure 128/57 L Pulse Oximetry 98 11/08/18 18:00 11/08/18 19:00 11/08/18 20:00 Temperature 99.2 F Pulse Rate 105 H 91 H 92 H Respiratory Rate 16 Blood Pressure 109/53 L Pulse Oximetry 98 11/08/18 20:15 11/08/18 21:00 11/08/18 22:00 Temperature Pulse Rate 88 86 Respiratory Rate Blood Pressure Pulse Oximetry 98 11/08/18 23:00 11/09/18 00:00 11/09/18 01:00 Temperature 99.0 F Pulse Rate 93 H 82 88 Respiratory Rate 12 Blood Pressure 103/51 L Pulse Oximetry 98 11/09/18 02:00 11/09/18 03:00 11/09/18 04:00 Temperature Pulse Rate 84 94 H 86 Respiratory Rate 14 Blood Pressure 112/56 L Pulse Oximetry 96 11/09/18 05:00 11/09/18 06:00 Temperature Pulse Rate 84 84 Respiratory Rate Blood Pressure Pulse Oximetry Result Diagrams: 11/06/18 04:41 11/08/18 04:13 - Plan (1) Seizure disorder Plan: on tegretol (2) Aortic stenosis (3) Combined systolic and diastolic congestive heart failure Plan: eval for gentle diuresis EF 45% (4) S/P AVR Plan: ON ASA, amiodarone , low dose BB OOB, ambulate transfer to stepdown unit PT CM to eval for HHC (2) Aortic stenosis Qualifiers: Cardiac valve disease etiology: etiology unspecified Qualified Code(s): I35.0 - Nonrheumatic aortic (valve) stenosis (3) Combined systolic and diastolic congestive heart failure Qualifiers: Heart failure chronicity: acute on chronic Qualified Code(s): I50.43 - Acute on chronic combined systolic (congestive) and diastolic (congestive) heart failure
[2018-11-09] MEDS: Insulin NovoLOG Aspart Correctional Sugar Inj SQ SCH ×2 (10:36→14:06)
[2018-11-09] MEDS: Metoprolol Tartrate 25 MG Tablet PO SCH (10:37)
[2018-11-09] MEDS: Docusate Sodium 100 MG Capsule PO SCH (10:37)
[2018-11-09] MEDS: carBAMazepine 200 MG Tablet PO SCH (10:37)
[2018-11-09] MEDS: Polyethylene Glycol 3350 17 GM Packet PO SCH (10:39)
[2018-11-09] MEDS: Pantoprazole Inj 40 MG Vial IV.PUSH SCH (10:39)
[2018-11-09] MEDS: Multivitamin/Minerals Therapeutic Tablet PO SCH (10:43)
[2018-11-09] MEDS: Senna/Docusate Sodium 8.6/50 MG Tablet PO SCH (10:43)
--- NOTE | 2018-11-09 10:55 | P.PNCA ---
Subjective Interval history: Pt doing well, wants to go home Medications and Allergies Active Medications: Active Medications Acetaminophen (Tylenol) 650 mg PO Q6H PRN PRN Reason: Fever >101f Al Hydroxide/Mg Hydroxide (Milk Of Magnesia Liq) 30 ml PO DAILY [facility] Last Admin: 11/08/18 08:43 Dose: 30 ml Albuterol (Albuterol Neb (Prn)) 2.5 mg NEB Q2HR NEB PRN PRN Reason: SHORTNESS OF BREATH/WHEEZING Albuterol (Duoneb Neb (Prn)) 1 ampul NEB Q2HR NEB PRN PRN Reason: WHEEZING Apixaban (Eliquis) 2.5 mg PO BID [facility] Last Admin: 11/08/18 08:41 Dose: 2.5 mg Aspirin (Aspirin Chew) 81 mg PO DAILY [facility] Last Admin: 11/08/18 08:42 Dose: 81 mg Atorvastatin Calcium (Lipitor) 40 mg PO HS [facility] Last Admin: 11/08/18 20:35 Dose: 40 mg Bisacodyl (Dulcolax Supp) 10 mg RECTAL DAILY PRN PRN Reason: SEVERE CONSITIPATION Bisacodyl (Dulcolax Supp) 10 mg RECTAL PRN PRN PRN Reason: SEE LABEL COMMENTS Carbamazepine (Tegretol) 600 mg PO BID [facility] Last Admin: 11/08/18 20:39 Dose: 600 mg Dextrose (D50w Vial) 50 ml IV.PUSH UNSCH PRN PRN Reason: PER HYPOGLYCEMIA PROTOCOL Docusate Sodium (Colace) 100 mg PO BID [facility] Last Admin: 11/08/18 20:36 Dose: Not Given Furosemide (Lasix Inj) 40 mg IV.PUSH BID@0900,1800 [facility] Last Admin: 11/08/18 17:50 Dose: 40 mg Glucagon (Glucagon Inj) 1 mg OTHER PRN PRN PRN Reason: For hypoglycemia Insulin Aspart (Novolog Insulin Correctional Sugar Inj) 0 unit SQ ACHS [facility]; Protocol Last Admin: 11/09/18 10:36 Dose: Not Given Lactulose (Lactulose Liq) 30 ml PO DAILY PRN PRN Reason: SEVERE CONSITIPATION Metoprolol Tartrate (Lopressor) 12.5 mg PO BID [facility] Last Admin: 11/08/18 20:35 Dose: 12.5 mg Multivitamins/Minerals (Theragran-M) 1 tab PO DAILY [facility] Last Admin: 11/08/18 08:42 Dose: 1 tab Ondansetron HCl (Zofran Inj) 4 mg IV.PUSH Q6H PRN PRN Reason: NAUSEA OR VOMITING Last Admin: 11/07/18 11:48 Dose: 4 mg Pantoprazole Sodium (Protonix Inj) 40 mg IV.PUSH DAILY [facility] Last Admin: 11/08/18 08:43 Dose: 40 mg Polyethylene Glycol (Miralax) 17 gm PO DAILY [facility] Last Admin: 11/08/18 08:43 Dose: Not Given Potassium Chloride (K-Dur) 20 meq PO BID [facility] Last Admin: 11/08/18 20:34 Dose: 20 meq Senna/Docusate Sodium (Sinai-Colace) 1 tab PO BID [facility] Last Admin: 11/08/18 20:36 Dose: Not Given Sennosides (Senokot) 17.2 mg PO Q12H PRN PRN Reason: Moderate Constipation Sennosides (Senokot) 8.6 mg PO HS [facility] Last Admin: 11/08/18 20:36 Dose: Not Given Sodium Biphosphate/Sodium Phosphate (Fleets Enema (Adult)) 118 ml RECTAL UNSCH PRN PRN Reason: SEE LABEL COMMENTS Sodium Chloride (Ns Flush) 2 ml IV.FLUSH BID [facility] Last Admin: 11/08/18 20:36 Dose: 2 ml Sodium Chloride (Ns Flush) 2 ml IV.FLUSH PRN PRN PRN Reason: FLUSH AFTER USING IV ACCESS Allergies Allergy/AdvReac Type Severity Reaction Status Date / Time No Known Allergies Allergy Verified 10/30/18 18:40 Home Medications Medication Instructions Recorded Confirmed Type carbamazepine 600 mg PO BID 11/05/18 11/05/18 History Physical Exam Vital signs: Vital Signs 11/08/18 11:00 11/08/18 12:00 11/08/18 13:00 Temperature 98.4 F Pulse Rate 79 79 80 Respiratory Rate 18 Blood Pressure 117/58 L Pulse Oximetry 96 11/08/18 13:05 11/08/18 14:00 11/08/18 15:00 Temperature Pulse Rate 77 79 Respiratory Rate 18 Blood Pressure Pulse Oximetry 11/08/18 16:00 11/08/18 17:00 11/08/18 18:00 Temperature 97.5 F L Pulse Rate 88 88 105 H Respiratory Rate 18 Blood Pressure 128/57 L Pulse Oximetry 98 11/08/18 19:00 11/08/18 20:00 11/08/18 20:15 Temperature 99.2 F Pulse Rate 91 H 92 H Respiratory Rate 16 Blood Pressure 109/53 L Pulse Oximetry 98 98 11/08/18 21:00 11/08/18 22:00 11/08/18 23:00 Temperature Pulse Rate 88 86 93 H Respiratory Rate Blood Pressure Pulse Oximetry 11/09/18 00:00 11/09/18 01:00 11/09/18 02:00 Temperature 99.0 F Pulse Rate 82 88 84 Respiratory Rate 12 Blood Pressure 103/51 L Pulse Oximetry 98 11/09/18 03:00 11/09/18 04:00 11/09/18 05:00 Temperature Pulse Rate 94 H 86 84 Respiratory Rate 14 Blood Pressure 112/56 L Pulse Oximetry 96 11/09/18 06:00 11/09/18 08:00 Temperature 98.1 F Pulse Rate 84 86 Respiratory Rate 16 Blood Pressure 133/65 Pulse Oximetry 98 Intake & Output 11/08/18 11/09/18 11/09/18 18:59 06:59 18:59 Intake Total 850 / 850 480 / 480 Output Total 700 / 700 1025 / 1025 Balance 150 / 150 -545 / -545 Weight 112.5 kg Intake: Oral 850 / 850 480 / 480 Output: Urine 700 / 700 1025 / 1025 Other: # Voids 2 Date of Last Bowel Movement 11/08/18 11/09/18 # Emeses 1 - Constitutional no acute distress - Routine HEENT Exam Eye: Present: EOMI ENT: Present: mucous membranes moist - Routine Neck Exam Present: supple. Absent: JVD - Routine Respiratory Exam Present: CTA bilaterally - Routine Cardiovascular Exam Present: irregularly irregular - Routine Abdominal Exam Present: soft - Routine Neurological Exam Present: alert - Urinary Catheter Management Indwelling Temp Sensing Catheter Cath placed during this visit: yes, but has since been removed by the nurse Urethral indwelling: No Reason for continuing: Decision to DC catheter Insertion date: 11/04/18 Insertion time: 07:40 Removal date: 11/05/18 Removal time: 06:00 Results 11/06/18 04:41 11/08/18 04:13 Cardiac Enzymes 11/08/18 Range/Units 04:13 AST 27 (15-37) U/L Comprehensive Metabolic Panel 11/08/18 Range/Units 04:13 Sodium 129 L (136-145) meq/L Potassium 4.1 D (3.5-5.1) meq/L Chloride 95 L (98-107) meq/L Carbon Dioxide 26.9 (21.0-32.0) meq/L BUN 15 (7-18) mg/dL Creatinine 0.76 (0.60-1.30) mg/dL Calcium 7.6 L (8.5-10.1) mg/dL AST 27 (15-37) U/L ALT 19 (12-78) U/L Alkaline Phosphatase 60 (45-117) U/L Total Protein 5.0 L D (6.4-8.2) g/dL Albumin 2.4 L (3.4-5.0) g/dL Intake and Output 11/08/18 11/09/18 11/09/18 22:59 06:59 14:59 Intake Total 850 / 850 480 / 480 Output Total 700 / 700 1025 / 1025 Balance 150 / 150 -545 / -545 Intake: Oral 850 / 850 480 / 480 Output: Urine 700 / 700 1025 / 1025 Other: # Voids 2 Date of Last Bowel Movement 11/08/18 11/09/18 # Emeses 1 Weight 112.5 kg - Imaging and Cardiology Imaging: Impressions Chest X-Ray 11/08/18 04:00 CONCLUSION: Left lower lobe atelectasis or consolidation. Minimal atelectasis or consolidation at the medial right base. Assessment and Plan - Assessment (1) Acute respiratory distress Code(s): R06.03 - Acute respiratory distress Status: Acute (2) Pulmonary edema Code(s): J81.1 - Chronic pulmonary edema Status: Acute (3) Aortic stenosis Code(s): I35.0 - Nonrheumatic aortic (valve) stenosis Status: Chronic (4) Aortic insufficiency Code(s): I35.1 - Nonrheumatic aortic (valve) insufficiency Status: Acute (5) Afib Code(s): I48.91 - Unspecified atrial fibrillation Status: Acute (6) S/P AVR Code(s): Z95.2 - Presence of prosthetic heart valve Status: Acute - Plan 1) Acute respiratory distress/pulmonary edema/acute heart failure Due to severe EF 40-45% 2) Severe by cath s/p 23mm bioprosthetic AVR 3) Mild MS by cath Mean gradient 4mmHG at a heart rate of 88 bpm 4) New onset AFib Currently on Amiodarone Due to nausea and emesis, as well as interaction with Tegretol, will plan to stop Will need to watch heart rates and see if he needs further AV rhonda blockers Recommended Eliquis 5mg BID He was placed on 2.5mg BID due to interaction with Tegretol, but Tegretol actually decreases the amount of Eliquis available Discussed with patient and his , they want to wait to hear from their neurologist, Dr. Fernandez, and his thoughts especially with interaction with Tegretol Pt now agrees to eliquis 5mg bid; He will f/u with [facility] as outpt (2) Pulmonary edema Qualifiers: Chronicity: acute Qualified Code(s): J81.0 - Acute pulmonary edema (3) Aortic stenosis Qualifiers: Cardiac valve disease etiology: etiology unspecified Qualified Code(s): I35.0 - Nonrheumatic aortic (valve) stenosis (4) Aortic insufficiency Qualifiers: Cardiac valve disease etiology: etiology unspecified Qualified Code(s): I35.1 - Nonrheumatic aortic (valve) insufficiency
--- NOTE | 2018-11-09 12:02 | P.PNIM ---
Physical Exam Vital signs: Vital Signs 11/08/18 12:00 11/08/18 13:00 11/08/18 13:05 Temperature 98.4 F Pulse Rate 79 80 Respiratory Rate 18 18 Blood Pressure 117/58 L Pulse Oximetry 96 11/08/18 14:00 11/08/18 15:00 11/08/18 16:00 Temperature 97.5 F L Pulse Rate 77 79 88 Respiratory Rate 18 Blood Pressure 128/57 L Pulse Oximetry 98 11/08/18 17:00 11/08/18 18:00 11/08/18 19:00 Temperature Pulse Rate 88 105 H 91 H Respiratory Rate Blood Pressure Pulse Oximetry 11/08/18 20:00 11/08/18 20:15 11/08/18 21:00 Temperature 99.2 F Pulse Rate 92 H 88 Respiratory Rate 16 Blood Pressure 109/53 L Pulse Oximetry 98 98 11/08/18 22:00 11/08/18 23:00 11/09/18 00:00 Temperature 99.0 F Pulse Rate 86 93 H 82 Respiratory Rate 12 Blood Pressure 103/51 L Pulse Oximetry 98 11/09/18 01:00 11/09/18 02:00 11/09/18 03:00 Temperature Pulse Rate 88 84 94 H Respiratory Rate Blood Pressure Pulse Oximetry 11/09/18 04:00 11/09/18 05:00 11/09/18 06:00 Temperature Pulse Rate 86 84 84 Respiratory Rate 14 Blood Pressure 112/56 L Pulse Oximetry 96 11/09/18 08:00 Temperature 98.1 F Pulse Rate 86 Respiratory Rate 16 Blood Pressure 133/65 Pulse Oximetry 98 Intake & Output 11/08/18 11/09/18 11/09/18 18:59 06:59 18:59 Intake Total 850 / 850 480 / 480 Output Total 700 / 700 1025 / 1025 Balance 150 / 150 -545 / -545 Weight 112.5 kg Intake: Oral 850 / 850 480 / 480 Output: Urine 700 / 700 1025 / 1025 Other: # Voids 2 Date of Last Bowel Movement 11/08/18 11/09/18 # Emeses 1 - Urinary Catheter Management Indwelling Temp Sensing Catheter Cath placed during this visit: yes, but has since been removed by the nurse Urethral indwelling: No Reason for continuing: Decision to DC catheter Insertion date: 11/04/18 Insertion time: 07:40 Removal date: 11/05/18 Removal time: 06:00 Results - Labs CBC & Chem 7: 11/06/18 04:41 11/08/18 04:13 Laboratory Results - last 24 hr 11/08/18 11/08/18 17:22 20:42 POC Glucose 123 H 101 Assessment and Plan - Assessment (1) Acute respiratory distress Code(s): R06.03 - Acute respiratory distress Status: Acute (2) Pulmonary edema Code(s): J81.1 - Chronic pulmonary edema Status: Acute (3) Aortic stenosis Code(s): I35.0 - Nonrheumatic aortic (valve) stenosis Status: Chronic (4) Aortic insufficiency Code(s): I35.1 - Nonrheumatic aortic (valve) insufficiency Status: Acute (5) Hypokalemia Code(s): E87.6 - Hypokalemia Status: Acute - Plan Patient is a 73 y/o Male who is a pt of Dr. Granado who presented to [facility] with SOB. An echocardiogram showed mod to sev aortic stenosis with a mean gradient of 46, ef 45%, and mod aortic regurg, with mod to severe . 1. Severe Aortic stenosis s/p aortic valve replacement 11/04 2. New onset A fib Continue aspirin, bb. As per cardiology amiodarone will be stopped and they want to continue to watch and monitor on telemetry to see if patient will need additional av blocking agents as amiodarone interferes with tegretol. Continue eliquis 5mg bid. HR currently under control. Continue to monitor on tele. 3. Acute hypoxic resp failure 2/2 systolic chf exacerbation Improved after diuresis. Continue asa, bb 4. Seizure disorder Continue carbamazapine 5. Hyponatremia Improved since admission Follow am renal panel. DVT prophylaxis, pt currently on eliquis. D/C planning. Patient will be watched on telemetry to monitor heart rate as per cardiology note since Amiodarone recently discontinued. Once cleared by cardiology patient can be discharged. (2) Pulmonary edema Qualifiers: Chronicity: acute Qualified Code(s): J81.0 - Acute pulmonary edema (3) Aortic stenosis Qualifiers: Cardiac valve disease etiology: etiology unspecified Qualified Code(s): I35.0 - Nonrheumatic aortic (valve) stenosis (4) Aortic insufficiency Qualifiers: Cardiac valve disease etiology: etiology unspecified Qualified Code(s): I35.1 - Nonrheumatic aortic (valve) insufficiency
--- NOTE | 2018-11-09 12:21 | P.DS ---
Date of admission: 10/30/18 19:32 Primary care physician: UNKNOWN Brief History from admission: This is a 73-year-old male. Date of admission 10/30/2008. Past medical includes seizure disorder, elevated BMI and atherosclerotic vascular disease including carotid artery disease. Patient is on carbamazepine 600 mg twice daily at home only. She does follow with Dr. Granado for cardiology. This evening, patient was at a [facility] meeting when he suddenly became dyspneic with white, frothy sputum. He was transferred to [facility] for further evaluation. Chest x-ray revealed bilateral pulmonary cyst likely underlying pulmonary edema. Patient received 40 mg IV furosemide was started on BiPAP 15/8 40%. Patient also received 2 mg of morphine sulfate and Nitropaste. ABG was adequate. Patient is currently able to use speak complete sentences on BiPAP and is feeling less congested. Patient is clearing of some chest discomfort worse with deep inspiration. Initial troponin was 0.02. EKG revealed nonspecific ST-T changes throughout with sinus tachycardia. BNP is elevated at 572. DS: Diagnosis - Discharge Diagnosis (1) Acute respiratory distress Status: Acute (2) Pulmonary edema Status: Acute (3) Aortic stenosis Status: Chronic (4) Aortic insufficiency Status: Acute (5) Hypokalemia Status: Acute DS: Medications - Discharge Medications Prescriptions: apixaban [Eliquis] 5 mg PO BID #60 tab aspirin 81 mg PO DAILY #30 tab DS: Summary Hospital Course: Patient is a 73 y/o Male who is a pt of Dr. Granado who presented to [facility] with SOB. An echocardiogram showed mod to sev aortic stenosis with a mean gradient of 46, ef 45%, and mod aortic regurg, with mod to severe . 1. Severe Aortic stenosis s/p aortic valve replacement 11/04 2. New onset A fib Patient was admitted and found to be in a fib. He underwent successful aortic valve replacement. He was monitored on telemetry. Cardiology evaluated the patient and recommends anticoagulation. Risks and benefits of being on anticoagulation were discussed with the patient. Continue aspirin, bb, eliquis. As per cardiology amiodarone will be stopped as it could interfere with the patient's antiseizure medications. After discontinuing amiodarone he was watched on telemetry without any significant findings. Continue eliquis 5mg bid. HR currently under control with betablocker. He can follow up with his primary care doctor in one week. He will also need to follow up with his emergency veterinary assistant in 1 week, pts Deputy Probation Officer Dr. Irvin. 3. Acute hypoxic resp failure 2/2 systolic chf exacerbation Improved after diuresis. Continue asa, bb 4. Seizure disorder Continue carbamazapine 5. Hyponatremia Improved since admission. Currently around 129. Patient will be discharged home today. He can follow up with his pcp in one week. No mental status changes. I recommend a repeat renal panel during his next clinic visit with his pcp to monitor his Na levels. - Time Spent with Patient Total time spent providing and/or coordinating discharge services: - Quality: VTE Deep Vein Thrombosis/Pulmonary Embolism Present on Admission: No Exam Vital signs: Vital Signs 11/08/18 13:00 11/08/18 13:05 11/08/18 14:00 Temperature Pulse Rate 80 77 Respiratory Rate 18 Blood Pressure Pulse Oximetry 11/08/18 15:00 11/08/18 16:00 11/08/18 17:00 Temperature 97.5 F L Pulse Rate 79 88 88 Respiratory Rate 18 Blood Pressure 128/57 L Pulse Oximetry 98 11/08/18 18:00 11/08/18 19:00 11/08/18 20:00 Temperature 99.2 F Pulse Rate 105 H 91 H 92 H Respiratory Rate 16 Blood Pressure 109/53 L Pulse Oximetry 98 11/08/18 20:15 11/08/18 21:00 11/08/18 22:00 Temperature Pulse Rate 88 86 Respiratory Rate Blood Pressure Pulse Oximetry 98 11/08/18 23:00 11/09/18 00:00 11/09/18 01:00 Temperature 99.0 F Pulse Rate 93 H 82 88 Respiratory Rate 12 Blood Pressure 103/51 L Pulse Oximetry 98 11/09/18 02:00 11/09/18 03:00 11/09/18 04:00 Temperature Pulse Rate 84 94 H 86 Respiratory Rate 14 Blood Pressure 112/56 L Pulse Oximetry 96 11/09/18 05:00 11/09/18 06:00 11/09/18 08:00 Temperature 98.1 F Pulse Rate 84 84 86 Respiratory Rate 16 Blood Pressure 133/65 Pulse Oximetry 98 Intake & Output 12/14/18 12/15/18 12/15/18 18:59 06:59 18:59 Intake Total 850 / 850 480 / 480 Output Total 700 / 700 1025 / 1025 Balance 150 / 150 -545 / -545 Weight 112.5 kg Intake: Oral 850 / 850 480 / 480 Output: Urine 700 / 700 1025 / 1025 Other: # Voids 2 Date of Last Bowel Movement 11/08/18 11/09/18 # Emeses 1 Results Labs on day of discharge: Labs from last 24 hours 11/08/18 11/08/18 20:42 17:22 POC Glucose 101 123 H - Impressions ITS Impressions Chest CTA 10/30/18 19:34 CONCLUSION: 1. Bilateral alveolar opacities again noted most characteristic of pulmonary edema. 2. Small to moderate bilateral pleural effusions. 3. No evidence of pulmonary emboli. 4. Coronary artery calcifications. Venous Doppler Study 10/31/18 00:00 CONCLUSION: No venous thrombosis is identified within either lower extremity. Carotid Doppler Study 11/01/18 14:27 CONCLUSION: 1. Right Internal Carotid Artery: Findings indicate <50% stenosis. 2. Left Internal Carotid Artery: Findings indicate <50% stenosis. Chest X-Ray 11/08/18 04:00 CONCLUSION: Left lower lobe atelectasis or consolidation. Minimal atelectasis or consolidation at the medial right base. Discharge Plan - Discharge Disposition Patient Disposition: /Home Health Service - Discharge Condition Condition: Good - Discharge Order Discharge Orders: Discharge Order (Routine); Ordered 11/09/18 Ordered By: Shelly Monreal ED Use Only Admit Order (Routine); Ordered 10/30/18 Ordered By: Stefani Mondragon - Discharge Details Anticipated Discharge Date: 11/09/18 - Physicians Team Primary Care Provider: UNKNOWN, Attending Provider: Alexis Connelly Other Providers: [employer] ; Luann Granado MD ; Shelly Monreal MD
--- NOTE | 2018-11-09 12:30 | P.DS ---
Date of admission: 10/30/18 19:32 Primary care physician: UNKNOWN Brief History from admission: Patient is a 73 y/o Male who is a pt of Dr. Granado who presented to [facility] with SOB. An echocardiogram showed mod to sev aortic stenosis with a mean gradient of 46, ef 45%, and mod aortic regurg, with mod to severe . DS: Diagnosis - Discharge Diagnosis (1) Acute respiratory distress Status: Acute (2) Pulmonary edema Status: Acute (3) Aortic stenosis Status: Chronic (4) Aortic insufficiency Status: Acute (5) Hypokalemia Status: Acute DS: Medications - Discharge Medications Prescriptions: apixaban [Eliquis] 5 mg PO BID #60 tab aspirin 81 mg PO DAILY #30 tab DS: Summary Hospital Course: Patient is a 73 y/o Male who is a pt of Dr. Granado who presented to [facility] with SOB. An echocardiogram showed mod to sev aortic stenosis with a mean gradient of 46, ef 45%, and mod aortic regurg, with mod to severe . 1. Severe Aortic stenosis s/p aortic valve replacement 11/04 2. New onset A fib Patient was admitted and was found to be in a fib. He underwent successful aortic valve replacement. Cardiology monitored the pt while in house. Initially he was started on amiodarone which was then stopped as it interferes with his seizure medication. He was monitored on telemetry and pts heart rate is controlled on bb. Continue aspirin, bb. Continue eliquis 5mg bid. The risks and benefits of anticoagulation were discussed with the patient and he agrees to continue the medication. HR currently under control. Follow up with pcp in one week. Patient will also need to follow up with his diesel power shovel operator in a week as well. 3. Acute hypoxic resp failure 2/2 systolic chf exacerbation Improved after diuresis. Continue asa, bb 4. Seizure disorder Continue carbamazapine 5. Hyponatremia Improved since admission. Currently around 129. Follow up with pcp in a week. I recommend a renal panel during the next clinic visit with pcp. Patient will be discharged home today. He is able to ambulate with a walker which will be given to him prior to discharge. Instructions for after discharge discussed with the patient in detail. - Time Spent with Patient Total time spent providing and/or coordinating discharge services: Greater than 30 minutes - Quality: VTE Deep Vein Thrombosis/Pulmonary Embolism Present on Admission: No Exam Vital signs: Vital Signs 11/08/18 13:00 11/08/18 13:05 11/08/18 14:00 Temperature Pulse Rate 80 77 Respiratory Rate 18 Blood Pressure Pulse Oximetry 11/08/18 15:00 11/08/18 16:00 11/08/18 17:00 Temperature 97.5 F L Pulse Rate 79 88 88 Respiratory Rate 18 Blood Pressure 128/57 L Pulse Oximetry 98 11/08/18 18:00 11/08/18 19:00 11/08/18 20:00 Temperature 99.2 F Pulse Rate 105 H 91 H 92 H Respiratory Rate 16 Blood Pressure 109/53 L Pulse Oximetry 98 11/08/18 20:15 11/08/18 21:00 11/08/18 22:00 Temperature Pulse Rate 88 86 Respiratory Rate Blood Pressure Pulse Oximetry 98 11/08/18 23:00 11/09/18 00:00 11/09/18 01:00 Temperature 99.0 F Pulse Rate 93 H 82 88 Respiratory Rate 12 Blood Pressure 103/51 L Pulse Oximetry 98 11/09/18 02:00 11/09/18 03:00 11/09/18 04:00 Temperature Pulse Rate 84 94 H 86 Respiratory Rate 14 Blood Pressure 112/56 L Pulse Oximetry 96 11/09/18 05:00 11/09/18 06:00 11/09/18 08:00 Temperature 98.1 F Pulse Rate 84 84 86 Respiratory Rate 16 Blood Pressure 133/65 Pulse Oximetry 98 Intake & Output 11/08/18 11/09/18 11/09/18 18:59 06:59 18:59 Intake Total 850 / 850 480 / 480 Output Total 700 / 700 1025 / 1025 Balance 150 / 150 -545 / -545 Weight 112.5 kg Intake: Oral 850 / 850 480 / 480 Output: Urine 700 / 700 1025 / 1025 Other: # Voids 2 Date of Last Bowel Movement 11/08/18 11/09/18 # Emeses 1 Narrative: S1 S2 irrgeularly irregular, HR under control CTA b/l abd soft, normal bowel sounds no edema of exts no neuro deficits. Results Procedures completed during hospitalization: aortic valve replacement. Labs on day of discharge: Labs from last 24 hours 11/08/18 11/08/18 20:42 17:22 POC Glucose 101 123 H - Impressions ITS Impressions Chest CTA 10/30/18 19:34 CONCLUSION: 1. Bilateral alveolar opacities again noted most characteristic of pulmonary edema. 2. Small to moderate bilateral pleural effusions. 3. No evidence of pulmonary emboli. 4. Coronary artery calcifications. Venous Doppler Study 10/31/18 00:00 CONCLUSION: No venous thrombosis is identified within either lower extremity. Carotid Doppler Study 11/01/18 14:27 CONCLUSION: 1. Right Internal Carotid Artery: Findings indicate <50% stenosis. 2. Left Internal Carotid Artery: Findings indicate <50% stenosis. Chest X-Ray 11/08/18 04:00 CONCLUSION: Left lower lobe atelectasis or consolidation. Minimal atelectasis or consolidation at the medial right base. Discharge Plan - Discharge Disposition Patient Disposition: /Home Health Service - Discharge Condition Condition: Good - Discharge Order Discharge Orders: Discharge Order (Routine); Ordered 11/09/18 Ordered By: Shelly Monreal ED Use Only Admit Order (Routine); Ordered 10/30/18 Ordered By: Stefani Mondragon - Discharge Details Anticipated Discharge Date: 11/09/18 - Physicians Team Primary Care Provider: UNKNOWN, Attending Provider: Alexis Connelly Other Providers: Mariela,Mumtaza ; Luann Granado MD ; Shelly Monreal MD
== END 2018-11-09 15:06 | disposition home health service (06) ==
LOC: NEPC 18:32 → NEDA 19:32 → HIMC 21:50 → HCPC 11-01 18:50 → HCVI 11-04 12:52 → HCPC 11-05 18:26
PROVIDERS: ADMIT Hospitalist; ATTEND Hospitalist
PROC: MINIAVR (2018-11-04 07:24)